=== PATIENT | male | born 1965 | race Caucasian/White ===

== ENCOUNTER 2021-06-27 10:40 | Inpatient (IN) | payer MEDICARE, SELFPAY ==
[2021-06-27] VITALS (39 sets, daily range): BP systolic 88–147; BP diastolic 61–94; PULSE 83–120; RESP 14–35; TEMP 35.9–38.5; O2SAT 84–969; BMI 29.2; BMI 28.8
--- NOTE | 2021-06-27 10:46 | CT_ITS ---
STUDY: CT BRAIN WITHOUT CONTRAST REASON FOR EXAM: Male, 56 years old. Unresponsive RADIATION DOSAGE (If Supplied By Facility): CTDIvol = ( 44.99 ) mGy, DLP = ( 863.60 ) mGycm TECHNIQUE: Transaxial CT imaging of the brain was performed without administration of intravenous contrast material. Individualized dose optimization techniques were used for this CT. COMPARISON: No relevant priors. FINDINGS: Normal soft tissue structures. Normal calvarium. Normal size ventricles and extra-axial spaces for the patient''s age. Normal white matter tracts of the cerebral hemispheres. Normal basal ganglia and thalami. Normal brainstem. Normal cerebellum. There is no intracranial hemorrhage. There are no findings of an acute ischemic infarction. Partial opacification of the ethmoid sinuses. CT/Brain/Head without Contrast IMPRESSION: Normal unenhanced CT scan of the brain. Electronically Signed: Kristopher Montano MD at 12:02 EST ,
--- NOTE | 2021-06-27 10:46 | RAD_ITS ---
STUDY: X-RAY CHEST REASON FOR EXAM: Male, 56 years old. Intubation TECHNIQUE: Single AP portable view of the chest. COMPARISON: None. FINDINGS: The tip of the nasogastric tube is in the body of the stomach. RAD/Chest 1 View (Portable) IMPRESSION: The tip of the nasogastric tube is in the body of the stomach. Electronically Signed: Kristopher Montano MD at 12:17 EST ,
--- NOTE | 2021-06-27 10:46 | EKG12_ITS ---
Test Reason : UNRESPONSIVE Blood Pressure : / mmHG Vent. Rate : 122 BPM Atrial Rate : 122 BPM P-R Int : 118 ms QRS Dur : 070 ms QT Int : 302 ms P-R-T Axes : 072 075 066 degrees QTc Int : 430 ms Sinus tachycardia with occasional and consecutive Premature ventricular complexes Low voltage QRS Abnormal ECG Confirmed by CHERRI WOOD, SETH ([id number]), features editor OMAR STEINBERG ([id number]) on 06/30/2021 10:52:10 AM Referred By: ZAIRA Confirmed By:SETH HARLEY MD
--- NOTE | 2021-06-27 10:52 | EDS_ITS ---
HPI History of Present Illness Chief Complaint: Unresponsive Informant: EMS Narrative Narrative: Patient came in as soledad Shay with first name known as Beck. Brought EMS from home, EMS was called for unresponsive male. Reported history of lung cancer emphysema COPD on chronic 4 L of oxygen. History of sleep apnea. Reported spouse stated he thought he was just sleeping however is not responding sitting on the couch. He supposed to wear a CPAP overnight but he did not. He was normal yesterday. They attempted intubate unable to therefore [id number]. Oxygen was 80% on 4 L. With [id number] he was 99%. Report blood glucose in the 200s. Had a left IO placed. Reported end-tidal CO2 was 140. No additional information at this time. Spouse came later after intubation and initiation and management states and confirms he was normal and fine yesterday no recent cough. Multiple similar episodes last time of the end of the year last year for same have been hypercapnic respiratory failure. 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 She states he has been compliant with his sleep mask however does not feel he did have it on yesterday. Prior similar symptoms: Yes [facility] Medical History COPD (chronic obstructive pulmonary disease) Emphysema lung Lung cancer Home Medications furosemide 60 mg PO BID 06/27/21 [History Last Taken Unknown] gabapentin 300 mg PO QHS 06/27/21 [History Last Taken Unknown] hydromorphone 2 mg PO Q8 PRN 06/27/21 [History Last Taken Unknown] ipratropium-albuterol 3 ml INHALATION Q4H PRN PRN 06/27/21 [History Last Taken Unknown] levothyroxine 175 mcg PO DAILY 06/27/21 [History Last Taken Unknown] methadone 10 mg PO BID 06/27/21 [History Last Taken Unknown] methylphenidate HCl 5 mg PO BID 06/27/21 [History Last Taken Unknown] metoprolol succinate 25 mg PO DAILY 06/27/21 [History Last Taken Unknown] prednisone 06/27/21 [History Last Taken Unknown] Allergy/AdvReac Type Severity Reaction Status Date / Time No Known Allergies Allergy Verified 06/27/21 10:46 Family History unable to obtain Surgical History unable to obtain Social History Smoking Status: Current every day smoker tobacco type: cigarettes and smokeless tobacco ROS ROS ED Review of Systems ROS Unobtainable: due to mental condition and due to mental status EXAM Physical Exam Const Vital Signs: 06/27/21 10:41 06/27/21 10:44 06/27/21 10:47 Temperature 96.6 F L 96.8 F L Temperature Source Temporal Temporal Pulse Rate 108 H 116 H Respiratory Rate 35 H 22 H Respiratory Effort Agonal Respiratory Depth Shallow Respiratory Pattern Blood Pressure 147/90 H 112/76 Blood Pressure Mean 109 88 Pulse Ox 84 99 Oxygen Delivery Method Ambu-Bag Mechanical Ventilator Fraction of Inspired Oxygen (FIO2) 06/27/21 11:06 06/27/21 11:40 06/27/21 11:44 Temperature 96.8 F L 97.3 F L 97.4 F L Temperature Source Temporal Core Core Pulse Rate 110 H 101 H Respiratory Rate 18 18 Respiratory Effort Respiratory Depth Respiratory Pattern Blood Pressure 97/74 93/78 Blood Pressure Mean 81 83 Pulse Ox 100 100 98 Oxygen Delivery Method Mechanical Ventilator Mechanical Ventilator Mechanical Ventilator Fraction of Inspired Oxygen (FIO2) 45 06/27/21 11:47 06/27/21 12:00 06/27/21 12:03 Temperature 97.4 F L Temperature Source Core Pulse Rate 109 H 107 H 102 H Respiratory Rate 15 18 20 H Respiratory Effort Respiratory Depth Respiratory Pattern Tachypnea Blood Pressure 88/64 L Blood Pressure Mean 72 Pulse Ox 99 100 Oxygen Delivery Method Mechanical Ventilator Fraction of Inspired Oxygen (FIO2) 60 06/27/21 12:06 06/27/21 12:15 06/27/21 13:00 Temperature 97.7 F L Temperature Source Core Pulse Rate 102 H 107 H 97 Respiratory Rate 18 18 Respiratory Effort Respiratory Depth Respiratory Pattern Blood Pressure 99/61 99/70 Blood Pressure Mean 73 79 Pulse Ox 96 969 Oxygen Delivery Method Mechanical Ventilator Fraction of Inspired Oxygen (FIO2) 45 Constitutional Narrative: Obese male, [id number] unresponsive not moving any of his extremities. GCS 3. HEENT Reports moist mucous membranes Negative for trauma Eyes Eyes Narrative: Pupils dilated symmetric bilaterally. Resp Resp Narrative: Equal breath sounds with [id number]. Cardio regular rhythm Rate: tachycardic GI Inspection: abdominal distention Palpation: soft Extremity Extremity Narrative: Left tibial IO. Pulses intact x4. Neuro Neuro Narrative: Unresponsive Skin no rashes or lesions noted MDM MDM MDM Narrative Medical decision making narrative: Patient unresponsive GCS is 3. Patient was intubated on arrival initial trial of Glidoscope however with patient size, anterior cords, this was switched to direct visualization placed with no complications. Procedure note: Emergent intubation: No sedation required, #4 glidoscope blade used direct realization cords anterior attempted with stylette, unable to guide anteriorly. Attempted x2 suctioning performed, there is no hypoxia. Continued [id number]. This was switched over to direct realization with #4 MAC blade visualized directly placed 7.5 [place] tube 23 cm at the lips. Positive capnography positive breath sounds bilaterally positive condensation. Tube was cleared by respiratory therapy. Sepsis work-up initiated to unresponsive, obtain a CT head. History patient not using his CPAP unresponsive with end-tidal CO2 of 140 by EMS likely hypercapnic respiratory failure. There is initial report from a CBC hemoglobin 4.4 however clinically he was not pale. Recheck CBC hemoglobin 11.4. Blood gas pH 7.182, PCO2 116 PaO2 151 at 60% oxygenation. His tidal volume increased to 450, ventilation rate from 14- 18. Oxygenation decreased down to 45%. He was initially started propofol drip however he became hypotensive improved when this was turned he was transitioned over to a fentanyl drip. There is increasing difficulty with the rest of patient's blood work with multiple tries by nursing laboratory studies. Some are still pending. Per spouse there has been issues in the past for which she has had a PICC line. Currently Wednesday with patient being ICU on a ventilator this would be more urgent emergent to have access as he has only an IV at this time. The PICC team was contacted by nursing for planned PICC line placement. Will speak with hos pital team for admission to ICU. Sustainable [employer] Consultant Dr. Dial was also aware and updated. CT brain returned negative chest x-ray negative for infiltrative changes. Tubes were in correct position. I discussed with hospitalist Dr. Ramirez, for admission to ICU. He requested reimaging of the x-ray due to the loaded imaging noting cut off the apex. However my bedside evaluation had multiple images reviewed that had the apex in there, I discussed with radiology department who will try to find images to load this otherwise stable we retake the appropriate image.. Lab Data Attestation: I reviewed the patient's lab results. Labs: Laboratory Results - last 24 hr 06/27/21 06/27/21 06/27/21 10:45 10:45 10:45 WBC Cancelled Corrected WBC Cancelled RBC Cancelled Hgb Cancelled Hct Cancelled MCV Cancelled MCH Cancelled MCHC Cancelled RDW Std Deviation Cancelled RDW Coeff of Imelda Cancelled Plt Count Cancelled MPV Cancelled Immature Gran % (Auto) Cancelled Neut % (Auto) Cancelled Lymph % (Auto) Cancelled [place] % (Auto) Cancelled Eos % (Auto) Cancelled Baso % (Auto) Cancelled Absolute Neuts (auto) Cancelled Absolute Lymphs (auto) Cancelled Total Counted Cancelled Neutrophils % (Manual) Cancelled Band Neutrophils % Cancelled Lymphocytes % (Manual) Cancelled Monocytes % (Manual) Cancelled Eosinophils % (Manual) Cancelled Basophils % (Manual) Cancelled Metamyelocytes % Cancelled Myelocytes % Cancelled Promyelocytes % Cancelled Blast Cells % Cancelled Plasma Cell % (Manual) Cancelled Other Cells % Cancelled Nucleated RBC % Cancelled Nucleated RBCs/100 WBC Cancelled Differential Comment Cancelled Diff Path Review Cancelled Hypersegmented Neuts Cancelled Atypical Lymphocytes Cancelled Reactive Lymphocytes Cancelled Smudge Cells Cancelled Toxic Granulation Cancelled Toxic Vacuolation Cancelled Dohle Bodies Cancelled Rylee Rods Cancelled Platelet Estimate Cancelled Plt Morphology Comment Cancelled RBC Morphology Cancelled Polychromasia Cancelled Hypochromasia Cancelled Poikilocytosis Cancelled Basophilic Stippling Cancelled Anisocytosis Cancelled Microcytosis Cancelled Macrocytosis Cancelled Spherocytes Cancelled Sickle Cells Cancelled Target Cells Cancelled Tear Drop Cells Cancelled Ovalocytes Cancelled Stomatocytes Cancelled [place] Bodies Cancelled [place] Cells Cancelled Bite Cells Cancelled Crenated Cell Cancelled Acanthocytes (Spur) Cancelled Rouleaux Cancelled Schistocytes Cancelled PT Cancelled INR Cancelled APTT Cancelled Sodium Cancelled Potassium Cancelled Chloride Cancelled Carbon Dioxide Cancelled Anion Gap Cancelled BUN Cancelled Creatinine Cancelled Estim Creat Clear Calc Cancelled Est GFR (MDRD) Af Amer Cancelled Est GFR (MDRD) Non-Af Cancelled BUN/Creatinine Ratio Cancelled Glucose Cancelled Lactic Acid Calcium Cancelled Total Bilirubin Cancelled AST Cancelled ALT Cancelled Alkaline Phosphatase Cancelled Troponin I High Sens Cancelled Total Protein Cancelled Albumin Cancelled Globulin Cancelled Albumin/Globulin Ratio Cancelled Urine Color Urine Clarity Urine pH Ur Specific [place] Urine Protein Urine Glucose (UA) Urine Ketones Urine Occult Blood Urine Nitrite Urine Bilirubin Urine Urobilinogen Ur Leukocyte Esterase Urine RBC Urine WBC Ur Squamous Epith Cells Urine Bacteria Urine Mucus 06/27/21 06/27/21 06/27/21 10:45 11:04 12:10 WBC 13.1 H Corrected WBC RBC 3.88 L Hgb 11.6 L Hct 39.7 L MCV 102.3 H MCH 29.9 MCHC 29.2 L RDW Std Deviation 56.8 H RDW Coeff of Imelda 15.1 H Plt Count 200 MPV 11.2 Immature Gran % (Auto) 3.400 H Neut % (Auto) 81.6 H Lymph % (Auto) 3.4 L [place] % (Auto) 11.0 H Eos % (Auto) 0.1 Baso % (Auto) 0.5 Absolute Neuts (auto) 10.7 H Absolute Lymphs (auto) 0.45 L Total Counted Neutrophils % (Manual) Band Neutrophils % Lymphocytes % (Manual) Monocytes % (Manual) Eosinophils % (Manual) Basophils % (Manual) Metamyelocytes % Myelocytes % Promyelocytes % Blast Cells % Plasma Cell % (Manual) Other Cells % Nucleated RBC % 0.5 Nucleated RBCs/100 WBC Differential Comment COMMENT Diff Path Review Hypersegmented Neuts Atypical Lymphocytes Reactive Lymphocytes Smudge Cells Toxic Granulation Toxic Vacuolation Dohle Bodies Rylee Rods Platelet Estimate Plt Morphology Comment RBC Morphology Polychromasia Hypochromasia Poikilocytosis Basophilic Stippling Anisocytosis Microcytosis Macrocytosis Spherocytes Sickle Cells Target Cells Tear Drop Cells Ovalocytes Stomatocytes [place] Bodies [place] Cells Bite Cells Crenated Cell Acanthocytes (Spur) Rouleaux Schistocytes PT INR APTT Sodium Potassium Chloride Carbon Dioxide Anion Gap BUN Creatinine Estim Creat Clear Calc Est GFR (MDRD) Af Amer Est GFR (MDRD) Non-Af BUN/Creatinine Ratio Glucose Lactic Acid Cancelled Calcium Total Bilirubin AST ALT Alkaline Phosphatase Troponin I High Sens Total Protein Albumin Globulin Albumin/Globulin Ratio Urine Color Yellow Urine Clarity Clear Urine pH 6.5 Ur Specific [place] 1.015 Urine Protein 30 H Urine Glucose (UA) Normal Urine Ketones Negative Urine Occult Blood Negative Urine Nitrite Negative Urine Bilirubin Negative Urine Urobilinogen Normal Ur Leukocyte Esterase Negative Urine RBC 0 SEEN Urine WBC 0 SEEN Ur Squamous Epith Cells 0 SEEN Urine Bacteria 0 SEEN Urine Mucus 0 SEEN 06/27/21 12:10 WBC Corrected WBC RBC Hgb Hct MCV MCH MCHC RDW Std Deviation RDW Coeff of Imelda Plt Count MPV Immature Gran % (Auto) Neut % (Auto) Lymph % (Auto) [place] % (Auto) Eos % (Auto) Baso % (Auto) Absolute Neuts (auto) Absolute Lymphs (auto) Total Counted Neutrophils % (Manual) Band Neutrophils % Lymphocytes % (Manual) Monocytes % (Manual) Eosinophils % (Manual) Basophils % (Manual) Metamyelocytes % Myelocytes % Promyelocytes % Blast Cells % Plasma Cell % (Manual) Other Cells % Nucleated RBC % Nucleated RBCs/100 WBC Differential Comment Diff Path Review Hypersegmented Neuts Atypical Lymphocytes Reactive Lymphocytes Smudge Cells Toxic Granulation Toxic Vacuolation Dohle Bodies Rylee Rods Platelet Estimate Plt Morphology Comment RBC Morphology Polychromasia Hypochromasia Poikilocytosis Basophilic Stippling Anisocytosis Microcytosis Macrocytosis Spherocytes Sickle Cells Target Cells Tear Drop Cells Ovalocytes Stomatocytes [place] Bodies [place] Cells Bite Cells Crenated Cell Acanthocytes (Spur) Rouleaux Schistocytes PT INR APTT Sodium 140 Potassium 4.5 Chloride 94 L Carbon Dioxide 42.0 H Anion Gap 4 L BUN 22 H Creatinine 1.58 H Estim Creat Clear Calc 55.94 Est GFR (MDRD) Af Amer 58 L Est GFR (MDRD) Non-Af 48 L BUN/Creatinine Ratio 13.9 Glucose 160 H Lactic Acid Calcium 8.2 L Total Bilirubin 0.10 L AST 33 ALT 35 Alkaline Phosphatase 108 Troponin I High Sens Total Protein 6.0 L Albumin 3.1 L Globulin 2.9 Albumin/Globulin Ratio 1.1 Urine Color Urine Clarity Urine pH Ur Specific [place] Urine Protein Urine Glucose (UA) Urine Ketones Urine Occult Blood Urine Nitrite Urine Bilirubin Urine Urobilinogen Ur Leukocyte Esterase Urine RBC Urine WBC Ur Squamous Epith Cells Urine Bacteria Urine Mucus ABG Data ABG results: ABG 06/27/21 11:15 Specimen Type ART Sample Site L Radial pH 7.18 L* Bicarbonate Actual 43.7 H Total CO2 47 Base Excess 15 H O2 Saturation 98 O2 % 45 ABG pCO2 116.7 H* ABG pO2 152 H Respiration Rate 14 O2 Delivery Device Adult Vent Vent Mode AC Tidal Volume 400 POC PEEP 5 Crit Call To/Read Back Yes Radiography Chest X-Ray - ED: 1 View, Read by ED Physician and Read by Radiologist Diagnostic Testing: Clinical Impression(s) from Imaging Studies Brain CT 06/27/21 10:46 IMPRESSION: Normal unenhanced CT scan of the brain. Electronically Signed: Kristopher Montano MD at 12:02 EST , Chest X-Ray 06/27/21 10:46 IMPRESSION: The tip of the nasogastric tube is in the body of the stomach. Electronically Signed: Kristopher Montano MD at 12:17 EST , ADDENDUM: 06/27/21 1325 EKG Initial EKG: Attestation: I personally reviewed and interpreted this EKG as follows: Comments: Sinus tachycardia 122, no ST or T wave changes. Critical Care Time Critical Care Time: Yes Critical care time (excluding procedures): 30-74 minutes, Discussing w/Patient &/or Family/Sanitary Engineer, Discussing w/Consultants, Arranging Admission or Transfer, Performing Direct Patient Care at Bedside and - Discharge Plan Dx/Rx/DC Orders Clinical Impression: Acute hypercapnic respiratory failure, History of COPD Disposition Disposition: Acute Care Hospital [facility] Discharge Date/Time: 06/27/21 13:57
[2021-06-27] MEDS: Propofol 10MG/Ml 1,000 MG/100 ML Bottle 5.9 MG CONT INF (11:00)
[2021-06-27] MEDS: 0.9% Normal Saline 1,000 ML 150 ML IV (11:01)
[2021-06-27 11:09] LABS: Bacteria 0 SEEN /hpf (None Seen); Mucous, Urine 0 SEEN /hpf (<or=2+); Red Blood Cells-Urine 0 SEEN /hpf (0-5); Squamous Epithelial Cells - UA 0 SEEN /hpf (0-5); White Blood Cells 0 SEEN /hpf (0-5)
[2021-06-27 11:11] LABS: Color, Urine Yellow (Yellow); Glucose, Dipstick Normal (Normal); Ketone-Dipstick Negative (Negative); Leukocyte Esterase-Dipstick Negative /ul (Negative); Nitrite-Dipstick Negative (Negative); Occult Blood-Urine Negative /ul (Negative); Protein-Dipstick 30 mg/dl (Negative); Specific Gravity, Urine 1.015 (1.002-1.030); Urine Bilirubin Dipstick Negative (Negative); Urine Clarity Clear (Clear); Urine Urobilinogen Normal (Normal); Urine pH 6.5 (5.0 - 8.0)
[2021-06-27 11:21] LABS: Base Excess 15 mmol/L (-2 to +2); Bicarbonate 43.7 mmol/L (22-26); Blood Gas Specimen Type ART; FI02 45; Mode AC; O2 Delivery Device Adult Vent; PEEP 5; PO2 152 mmHG (75-100); RR 14; SITE L Radial; SO2 98 % (95-99); Total Carbon Dioxide 47 mmol/L; Vt 400; pCO2 116.7 mmHg (35-45); pH 7.18 (7.35-7.45)
--- NOTE | 2021-06-27 11:50 | CPS ---
Increased RR to 18 and VT to 450 per
[2021-06-27] MEDS: MethylPREDNISolone 125 MG/2 ML Vial IV (12:00)
[2021-06-27] MEDS: Ipratropium/Albuterol Sulfate 3 ML AMPUL.NEB INHALATION ×4 (12:03→22:44)
[2021-06-27] MEDS: Albuterol 2.5 MG/3 ML VIAL.NEB. INHALATION ×2 (12:03→12:04)
[2021-06-27 12:21] LABS: Absolute Lymphocyte Count 0.45 X10^3/uL (0.83-4.51); Absolute Neutrophil Count 10.7 X10^3/uL (2.0-7.7); Basophil# 0.06 X10^3/uL; Basophil% 0.5 % (0-1); Eosinophil# 0.01 X10^3/uL; Eosinophils% 0.1 % (0-5); Hematocrit 39.7 % (40-54); Hemoglobin 11.6 g/dL (13.0-16.5); Lymphocyte # 0.45 X10^3/ul (0.83-4.51); Lymphocyte % 3.4 % (19-41); Mean Corp Hgb Conc 29.2 g/dL (32-36); Mean Corpuscular Hgb 29.9 pg (27.0-32.0); Mean Corpuscular Volume 102.3 fL (80-94); Mean Platelet Vol. 11.2 fl (6.2-12.0); Monocyte# 1.44 X10^3/uL; NRBC Flagged by Analyzer 0.5 % (0-5); Neutrophil # 10.72 X10^3/uL (2.7-7.7); Neutrophil % 81.6 % (47-70); POSITIVE DIFFERENTIAL YES; Platelet Count 200 K/mm3 (150-450); RBC Distribution Width CV 15.1 % (11.6-14.6); RBC Distribution Width SD 56.8 fl (35.1-43.9); Red Blood Count 3.88 M/mm3 (4.6-6.2); White Blood Count 13.1 K/mm3 (4.4-11.0)
[2021-06-27 12:22] LABS: Differential Indicated SCAN CRITERIA MET
--- NOTE | 2021-06-27 12:47 | ED.RN ---
PICC line team called for picc insertion. pt will have emergency picc placed.
--- NOTE | 2021-06-27 13:03 | ED.RN ---
MD AWARE OF SEPSIS ALERT, FEEL CURRENT STATUS IS NOT RELATED TO AN INFECTIOUS PROCESS
[2021-06-27 13:07] LABS: ALB/GLOB Ratio 1.1 RATIO (0.9-2.4); AST(SGOT) 33 U/L (15-37); Alanine Aminotransfer ALT/SGPT 35 U/L (16-61); Albumin, Serum 3.1 g/dL (3.2-5.0); Alkaline Phosphatase 108 U/L (45-117); Anion Gap 4 (5-15); BUN 22 mg/dL (7-18); BUN/Creat Ratio 13.9 RATIO (10-20); Calcium,Total 8.2 mg/dL (8.5-10.1); Chloride 94 mmol/L (98-107); Creatinine, Serum 1.58 mg/dL (0.70-1.30); EST Glomerular Filtration Rate 48 mL/min (>60); Est Glom Filt Rate - Afr Amer 58 mL/min (>60); Estimated Creatinine Clearance 55.94 ml/min; Globulin 2.9 g/dL (2.2-4.2); Glucose 160 mg/dL (74-106); Potassium 4.5 mmol/L (3.5-5.1); Sodium Level 140 mmol/L (136-145)
--- NOTE | 2021-06-27 13:18 | HP.PCM.HOS_ITS ---
HPI - General General Date of Admission: 06/27/21 Date of Service: 06/27/21 Chief Complaint: unresponsive HPI Narrative SUMEET ELLIOTT, is a 56 M who presents being found unresponsive. Patient was sent to emergency room and intubated. Blood gas showed respiratory acidosis with PCO2 of 116. Patient has a history of lung cancer and advanced COPD. Patient has a trilogy machine at home but has not been using it frequently and was not on it last night. According to his , is present at bedside, he was awake alert. He has had spells like this before and has been intubated numerous occasions. He does take narcotics for pain associated with his cancer but she denies any suicide attempt or ideation for the patient. [facility] Medical History COPD (chronic obstructive pulmonary disease) Emphysema lung Lung cancer Home Medications furosemide 60 mg PO BID 06/27/21 [History Last Taken Unknown] gabapentin 300 mg PO QHS 06/27/21 [History Last Taken Unknown] hydromorphone 2 mg PO Q8 PRN 06/27/21 [History Last Taken Unknown] ipratropium-albuterol 3 ml INHALATION Q4H PRN PRN 06/27/21 [History Last Taken Unknown] levothyroxine 175 mcg PO DAILY 06/27/21 [History Last Taken Unknown] methadone 10 mg PO BID 06/27/21 [History Last Taken Unknown] methylphenidate HCl 5 mg PO BID 06/27/21 [History Last Taken Unknown] metoprolol succinate 25 mg PO DAILY 06/27/21 [History Last Taken Unknown] prednisone 06/27/21 [History Last Taken Unknown] Allergy/AdvReac Type Severity Reaction Status Date / Time No Known Allergies Allergy Verified 06/27/21 10:46 unable to obtain (Intubated) unable to obtain (Patient intubated) Social History Smoking Status: Current every day smoker tobacco type: cigarettes ROS Review of Systems ROS Unobtainable: due to endotracheal tube Vital Signs Vital Signs Vital Signs: 06/27/21 10:41 06/27/21 10:44 06/27/21 10:47 Temperature 35.9 C L 36.0 C L Temperature Source Temporal Temporal Pulse Rate 108 H 116 H Respiratory Rate 35 H 22 H Respiratory Effort Agonal Respiratory Depth Shallow Blood Pressure 147/90 H 112/76 Blood Pressure Mean 109 88 Pulse Ox 84 99 Oxygen Delivery Method Ambu-Bag Mechanical Ventilator Fraction of Inspired Oxygen (FIO2) 06/27/21 11:06 06/27/21 11:40 06/27/21 11:44 Temperature 36.0 C L 36.3 C L 36.3 C L Temperature Source Temporal Core Core Pulse Rate 110 H 101 H Respiratory Rate 18 18 Respiratory Effort Respiratory Depth Blood Pressure 97/74 93/78 Blood Pressure Mean 81 83 Pulse Ox 100 100 98 Oxygen Delivery Method Mechanical Ventilator Mechanical Ventilator Mechanical Ventilator Fraction of Inspired Oxygen (FIO2) 45 06/27/21 11:47 06/27/21 12:00 06/27/21 12:15 Temperature 36.3 C L Temperature Source Core Pulse Rate 109 H 107 H 107 H Respiratory Rate 15 18 Respiratory Effort Respiratory Depth Blood Pressure 88/64 L 99/61 Blood Pressure Mean 72 73 Pulse Ox 99 Oxygen Delivery Method Mechanical Ventilator Fraction of Inspired Oxygen (FIO2) 06/27/21 13:00 Temperature 36.5 C L Temperature Source Core Pulse Rate 97 Respiratory Rate 18 Respiratory Effort Respiratory Depth Blood Pressure 99/70 Blood Pressure Mean 79 Pulse Ox 969 Oxygen Delivery Method Mechanical Ventilator Fraction of Inspired Oxygen (FIO2) Weight Weight: 97.9 kg Body Mass Index (BMI) 29.2 Physical Exam Const Constitutional Narrative: Intubated and sedated. HEENT normocephalic Neck no lymphadenopathy Resp normal respiratory effort, no retractions, no use of accessory muscles and clear to auscultation bilaterally Cardio regular rate, regular rhythm, S1 normal heart sound and S2 normal heart sound GI normal to inspection, nondistended, normoactive bowel sounds, soft to palpation, non-tender and non-distended Extremity normal to inspection Skin no rashes or lesions noted Neuro Sensorium / Orientation: awake and alert Results Lab / Micro Data Attestation: I reviewed the patient's lab results. Result Diagrams: 06/27/21 12:10 06/27/21 12:10 Labs: Laboratory Results - last 24 hr 06/27/21 10:45: WBC Cancelled, Corrected WBC Cancelled, RBC Cancelled, Hgb Cancelled, Hct Cancelled, MCV Cancelled, MCH Cancelled, MCHC Cancelled, RDW Std Deviation Cancelled, RDW Coeff of Imelda Cancelled, Plt Count Cancelled, MPV Cancelled, Immature Gran % (Auto) Cancelled, Neut % (Auto) Cancelled, Lymph % (Auto) Cancelled, [place] % (Auto) Cancelled, Eos % (Auto) Cancelled, Baso % (Auto) Cancelled, Absolute Neuts (auto) Cancelled, Absolute Lymphs (auto) Cancelled, Total Counted Cancelled, Neutrophils % (Manual) Cancelled, Band Neutrophils % Cancelled, Lymphocytes % (Manual) Cancelled, Monocytes % (Manual) Cancelled, Eosinophils % (Manual) Cancelled, Basophils % (Manual) Cancelled, Metamyelocytes % Cancelled, Myelocytes % Cancelled, Promyelocytes % Cancelled, Blast Cells % Cancelled, Plasma Cell % (Manual) Cancelled, Other Cells % Cancelled, Nucleated RBC % Cancelled, Nucleated RBCs/100 WBC Cancelled, Differential Comment Cancelled, Diff Path Review Cancelled, Hypersegmented Neuts Cancelled, Atypical Lymphocytes Cancelled, Reactive Lymphocytes Cancelled, Smudge Cells Cancelled, Toxic Granulation Cancelled, Toxic Vacuolation Cancelled, Dohle Bodies Can celled, Rylee Rods Cancelled, Platelet Estimate Cancelled, Plt Morphology Comment Cancelled, RBC Morphology Cancelled, Polychromasia Cancelled, Hypochromasia Cancelled, Poikilocytosis Cancelled, Basophilic Stippling Cancelled, Anisocytosis Cancelled, Microcytosis Cancelled, Macrocytosis Cancelled, Sp herocytes Cancelled, Sickle Cells Cancelled, Target Cells Cancelled, Tear Drop Cells Cancelled, Ovalocytes Cancelled, Stomatocytes Cancelled, Reyes-[place] Bodies Cancelled, [place] Cells Cancelled, Bite Cells Cancelled, Crenated Cell Cancelled, Acanthocytes (Spur) Cancelled, Rouleaux Cancelled, Schistocytes Cancelled 06/27/21 10:45: PT Cancelled, INR Cancelled, APTT Cancelled 06/27/21 10:45: Sodium Cancelled, Potassium Cancelled, Chloride Cancelled, Car bon Dioxide Cancelled, Anion Gap Cancelled, BUN Cancelled, Creatinine Cancelled, Estim Creat Clear Calc Cancelled, Est GFR (MDRD) Af Amer Cancelled, Est GFR (MDRD) Non-Af Cancelled, BUN/Creatinine Ratio Cancelled, Glucose Cancelled, Calcium Cancelled, Total Bilirubin Cancelled, AST Cancelled, ALT Cancelled, Alkaline Phosphatase Cancelled, Troponin I High Sens Cancelled, Total Protein Cancelled, Albumin Cancelled, Globulin Cancelled, Albumin/Globulin Ratio Cancelled 06/27/21 10:45: Lactic Acid Cancelled 06/27/21 11:04: Urine Color Yellow, Urine Clarity Clear, Urine pH 6.5, Ur Specific [place] 1.015, Urine Protein 30 H, Urine Glucose (UA) Normal, Urine Ketones Negative, Urine Occult Blood Negative, Urine Nitrite Negative, Urine Bilirubin Negative, Urine Urobilinogen Normal, Ur Leukocyte Esterase Negative, Urine RBC 0 SEEN, Urine WBC 0 SEEN, Ur Squamous Epith Cells 0 SEEN, Urine Bacteria 0 SEEN, Urine Mucus 0 SEEN 06/27/21 12:10: WBC 13.1 H, RBC 3.88 L, Hgb 11.6 L, Hct 39.7 L, MCV 102.3 H, MCH 29.9, MCHC 29.2 L, RDW Std Deviation 56.8 H, RDW Coeff of Imelda 15.1 H, Plt Count 200, MPV 11.2, Immature Gran % (Auto) 3.400 H, Neut % (Auto) 81.6 H, Lymph % (Au to) 3.4 L, [place] % (Auto) 11.0 H, Eos % (Auto) 0.1, Baso % (Auto) 0.5, Absolute Neuts (auto) 10.7 H, Absolute Lymphs (auto) 0.45 L, Nucleated RBC % 0.5, Differential Comment COMMENT 06/27/21 12:10: Sodium 140, Potassium 4.5, Chloride 94 L, Carbon Dioxide 42.0 H, Anion Gap 4 L, BUN 22 H, Creatinine 1.58 H, Estim Creat Clear Calc 55.94, Est GFR (MDRD) Af Amer 58 L, Est GFR (MDRD) Non-Af 48 L, BUN/Creatinine Ratio 13.9, Glucose 160 H, Calcium 8.2 L, Total Bilirubin 0.10 L, AST 33, ALT 35, Alkaline Phosphatase 108, Total Protein 6.0 L, Albumin 3.1 L, Globulin 2.9, Albumin/Globulin Ratio 1.1 Micro: Microbiology 06/27/21 11:05 Nasal Secretion SARS-CoV-2 Antigen (Rapid) - Final ABG Data ABG results: ABG 06/27/21 11:15 Specimen Type ART Sample Site L Radial pH 7.18 L* Bicarbonate Actual 43.7 H Total CO2 47 Base Excess 15 H O2 Saturation 98 O2 % 45 ABG pCO2 116.7 H* ABG pO2 152 H Respiration Rate 14 O2 Delivery Device Adult Vent Vent Mode AC Tidal Volume 400 POC PEEP 5 Crit Call To/Read Back Yes Radiology Impression Brain CT 06/27/21 10:46 IMPRESSION: Normal unenhanced CT scan of the brain. Electronically Signed: Kristopher Montano MD at 12:02 EST , Chest X-Ray 06/27/21 10:46 IMPRESSION: The tip of the nasogastric tube is in the body of the stomach. Electronically Signed: Kristopher Montano MD at 12:17 EST , Assessment & Plan Assessment/Plan (1) Acute hypercapnic respiratory failure: (2) Acute exacerbation of COPD with asthma: PLAN: 1. Acute on chronic hypercapnic respiratory failure Patient has been intubated roughly 4-5 times over the past year according to his Chest x-ray is unremarkable for any infiltrates and his COVID-19 was negative. Complicated by his narcotic use but denies any suicide attempt or ideation. Is likely exacerbation of his COPD Patient has been intubated in the emergency room Patient be transferred to ICU CCM consult Given his frequent hospitalizations and the fact that he is never been here before we will request records from [facility] where he normally is treated. 2. Acute COPD exacerbation Bronchodilators and methylprednisolone 3. VTE prophylaxis with enoxaparin 4. COVID-19 vaccination status: Patient is vaccinated for COVID-19 according to his spouse 5. Advance care planning. Dressed with his . She stated that he and she had spoken with palliative care, the patient established with, and he wished to be full code at that time. Therefore patient is full CODE STATUS. Charges/Coding Visit Charges Inpatient E&M: 08877 Init Hosp L3
--- NOTE | 2021-06-27 14:32 | CON.PCM.CC_ITS ---
Assessment & Plan Assessment/Plan (1) Acute hypercapnic respiratory failure: (2) Acute exacerbation of COPD with asthma: (3) Acute metabolic encephalopathy: (4) Chronic kidney disease (CKD) stage G3a/A1, moderately decreased glomerular filtration rate (GFR) between 45-59 mL/min/1.73 square meter and albuminuria creatinine ratio less than 30 mg/g: PLAN: RECOMMENDATIONS: 1. Continue mechanical ventilation 2. Sedation only if necessary for vent synchrony 3. Monitor neuro exam clinically 4. Await sputum culture. Start antibiotics with fever 5. Initiate Solu-Medrol and bronchodilators 6. Remove I/O once PICC line is placed IMPRESSIONS: 1. Acute on chronic combined respiratory failure with possible COPD exacerbation Patient reportedly with advanced lung disease at baseline. Labs are consistent with an element of CO2 retention. ABG shows adequate oxygenation ventilation at this time. Some concern for noncompliance with NIV leading to CO2 retention and obtundation. Agree with monitoring off of antibiotics for now. These can be initiated if significant secretions or fever noted. Initiate Solu-Medrol and bronchodilators. 2. Acute metabolic encephalopathy Patient's carbon oxide greater than 100 on presentation. However, patient was also found saturating 80%. Cannot exclude an element of anoxic encephalopathy. We will try to minimize sedation and monitor clinically. No seizure activity has been noted. Delirium protocol. 3. Chronic kidney disease stage III Patient's reported that he was of his usual health yesterday. Patient currently with a 10-1 BUN to creatinine ratio. Clinical suspicion is chronic kidney disease. We will continue to monitor renal function. No indication for renal replacement therapy at this time. Patient does have an element of chronic metabolic alkalosis to compensate for respiratory acidosis. No indication for renal replacement therapy at this time. Patient does not appear to be acutely fluid overloaded to require Lasix therapy 4. History of lung cancer/poor compliance with NIV/repeated admissions/chronic opioids/hypothyroidism Complicates care, management, recovery and prognosis. Patient is currently on a fentanyl drip, so methadone can be held. Chronic narcotics do increases risk of repeated respiratory failure. Patient is reportedly a full code TIME: 35 minutes critical care time spent addressing patient's acute on chronic combined respiratory failure, acute metabolic encephalopathy, CKD, review of all data and collaboration with care team HPI Consult Data Date of Consult: 06/27/21 HPI Narrative HPI Narrative: SUMEET ELLIOTT is a 56 M, with past medical history listed below, who presents to [facility] 06[facility]27/[facility]21 secondary to being unresponsiveness. EMS was reportedly called to the patient's home secondary to being found unresponsive. Patient does have a protracted/complex pulmonary history with lung cancer, emphysema and chronic hypoxic respiratory failure requiring 4 L/min. Patient also has a history of sleep apnea with poor compliance. Patient reportedly had fallen asleep on the couch and not used his CPAP overnight. Patient was reportedly of his usual health yesterday. EMS had reported a saturation of 80% on 4 L nasal cannula. Patient was given bag valve mask ventilation with good response. Patient had an IO placed and was noted to have an end-tidal CO2 of 140. Patient was transferred to the ER for further evaluation. On arrival to the ER, patient was unresponsive, normotensive and hypertensive. Patient was requiring bag mask ventilation, but was intubated shortly after arrival. Patient did have some hypotension associated with the use of propofol. EMS personnel reported an initial GCS of three. Laboratory work-up showed a white blood cell count of 13.1, hemoglobin of 11.6 and a platelet count of 200. UA was within normal limits. An ABG showed a pH of 7.1 8/117/1 52/98%. Chest x-ray showed no acute infiltrates and CT of the head was unremarkable. Patient was transferred to the intensive care unit for further evaluation. Since being in the intensive care unit, patient is not interactive. Patient is on a fentanyl drip with good vent synchrony. FiO2 was weaned to 35% with saturations going from 97 to 92%. ABG showed adequate oxygenation and ventilation on current settings. Patient reportedly has had multiple similar type of presentations. Patient reportedly has had issues with decreased responsiveness, especially when he does not use his NIV at home. Patient reportedly goes to [facility] for most of his admissions, so little information is known otherwise here. Patient reporte vera does continue to smoke tobacco and use smokeless tobacco, but this has not been personally confirmed. [facility] Medical History COPD (chronic obstructive pulmonary disease) Emphysema lung Lung cancer Home Medications furosemide 60 mg PO BID 06/27/21 [History Last Taken Unknown] gabapentin 300 mg PO QHS 06/27/21 [History Last Taken Unknown] hydromorphone 2 mg PO Q8 PRN 06/27/21 [History Last Taken Unknown] ipratropium-albuterol 3 ml INHALATION Q4H PRN PRN 06/27/21 [History Last Taken Unknown] levothyroxine 175 mcg PO DAILY 06/27/21 [History Last Taken Unknown] methadone 10 mg PO BID 06/27/21 [History Last Taken Unknown] methylphenidate HCl 5 mg PO BID 06/27/21 [History Last Taken Unknown] metoprolol succinate 25 mg PO DAILY 06/27/21 [History Last Taken Unknown] prednisone 06/27/21 [History Last Taken Unknown] Allergy/AdvReac Type Severity Reaction Status Date / Time No Known Allergies Allergy Verified 06/27/21 10:46 Family History unable to obtain Surgical History unable to obtain Social History Smoking Status: Current every day smoker tobacco type: cigarettes and smokeless tobacco ROS Review of Systems ROS Unobtainable: due to encephalopathy Physical Exam Const General Appearance: disheveled, appears older than stated age, intubated and patient mechanically ventilated Orientation / Consciousness: comatose Nutritional Appearance: obese HEENT normocephalic and head/scalp atraumatic Neck no lymphadenopathy Chest Chest: abnormal inspection of the chest increased A-P diameter and symmetrical chest wall rise; Negative for crepitus Resp no retractions and no use of accessory muscles Auscultation: diminished lung sounds Cardio regular rhythm, S1 normal heart sound, S2 normal heart sound, no murmurs, no rub and no gallops Rate: tachycardic GI normal to inspection, nondistended, normoactive bowel sounds, soft to palpation, non-tender and non-distended Extremity General Extremity: clubbing and edema bilateral (1+) lower extremity; Negative for cyanosis Skin no rashes or lesions noted Skin Narrative: Multiple skin tags Neuro Kimberly Coma Scale: document GCS findings None None None 3 Sensorium / Orientation: obtunded Lab / Micro Data Result Diagrams: 06/27/21 12:10 06/27/21 12:10 Labs: Laboratory Results - last 24 hr 06/27/21 10:45: WBC Cancelled, Corrected WBC Cancelled, RBC Cancelled, Hgb Cancelled, Hct Cancelled, MCV Cancelled, MCH Cancelled, MCHC Cancelled, RDW Std Deviation Cancelled, RDW Coeff of Imelda Cancelled, Plt Count Cancelled, MPV Cancelled, Immature Gran % (Auto) Cancelled, Neut % (Auto) Cancelled, Lymph % (Auto) Cancelled, [place] % (Auto) Cancelled, Eos % (Auto) Cancelled, Baso % (Auto) Cancelled, Absolute Neuts (auto) Cancelled, Absolute Lymphs (auto) Cancelled, Total Counted Cancelled, Neutrophils % (Manual) Cancelled, Band Neutrophils % Cancelled, Lymphocytes % (Manual) Cancelled, Monocytes % (Manual) Cancelled, Eosinophils % (Manual) Cancelled, Basophils % (Manual) Cancelled, Metamyelocytes % Cancelled, Myelocytes % Cancelled, Promyelocytes % Cancelled, Blast Cells % Cancelled, Plasma Cell % (Manual) Cancelled, Other Cells % Cancelled, Nucleated RBC % Cancelled, Nucleated RBCs/100 WBC Cancelled, Differential Comment Cancelled, Diff Path Review Cancelled, Hypersegmented Neuts Cancelled, Atypical Lymphocytes Cancelled, Reactive Lymphocytes Cancelled, Smudge Cells Cancelled, Toxic Granulation Cancelled, Toxic Vacuolation Cancelled, Dohle Bodies Cancelled, Rylee Rods Cancelled, Platelet Estimate Cancelled, Plt Morphology Comment Cancelled, RBC Morphology Cancelled, Polychromasia Cancelled, Hypochromasia Cancelled, Poikilocytosis Cancelled, Basophilic Stippling Cancelled, Anisocytosis Cancelled, Microcytosis Cancelled, Macrocytosis Cancelled, Spherocytes Cancelled, Sickle Cells Cancelled, Target Cells Cancelled, Tear Drop Cells Cancelled, Ovalocytes Cancelled, Stomatocytes Cance lled, Reyes-[place] Bodies Cancelled, [place] Cells Cancelled, Bite Cells Cancelled, Crenated Cell Cancelled, Acanthocytes (Spur) Cancelled, Rouleaux Cancelled, Schistocytes Cancelled 06/27/21 10:45: PT Cancelled, INR Cancelled, APTT Cancelled 06/27/21 10:45: Sodium Cancelled, Potassium Cancelled, Chloride Cancelled, Carbon Dioxide Cancelled, Anion Gap Cancelled, BUN Cancelled, Creatinine Cancelled, Estim Creat Clear Calc Cancelled, Est GFR (MDRD) Af Amer Cancelled, Est GFR (MDRD) Non-Af Cancelled, BUN/Creatinine Ratio Cancelled, Glucose Cancelled, Calcium Cancelled, Total Bilirubin Cancelled, AST Cancelled, ALT Cancelled, Alkaline Phosphatase Cancelled, Troponin I High Sens Cancelled, Total Protein Cancelled, Albumin Cancelled, Globulin Cancelled, Albumin/Globulin Ratio Cancelled 06/27/21 10:45: Lactic Acid Cancelled 06/27/21 11:04: Urine Color Yellow, Urine Clarity Clear, Urine pH 6.5, Ur Specific [place] 1.015, Urine Protein 30 H, Urine Glucose (UA) Normal, Urine Ketones Negative, Urine Occult Blood Negative, Urine Nitrite Negative, Urine Bilirubin Negative, Urine Urobilinogen Normal, Ur Leukocyte Esterase Negative, Urine RBC 0 SEEN, Urine WBC 0 SEEN, Ur Squamous Epith Cells 0 SEEN, Urine Bacteria 0 SEEN, Urine Mucus 0 SEEN 06/27/21 12:10: WBC 13.1 H, RBC 3.88 L, Hgb 11.6 L, Hct 39.7 L, MCV 102.3 H, MCH 29.9, MCHC 29.2 L, RDW Std Deviation 56.8 H, RDW Coeff of Imelda 15.1 H, Plt Count 200, MPV 11.2, Immature Gran % (Auto) 3.400 H, Neut % (Auto) 81.6 H, Lymph % (Auto) 3.4 L, [place] % (Auto) 11.0 H, Eos % (Auto) 0.1, Baso % (Auto) 0.5, Absolute Neuts (auto) 10.7 H, Absolute Lymphs (auto) 0.45 L, Nucleated RBC % 0.5, Differential Comment COMMENT 06/27/21 12:10: Sodium 140, Potassium 4.5, Chloride 94 L, Carbon Dioxide 42.0 H, Anion Gap 4 L, BUN 22 H, Creatinine 1.58 H, Estim Creat Clear Calc 55.94, Est GFR (MDRD) Af Amer 58 L, Est GFR (MDRD) Non-Af 48 L, BUN/Creatinine Ratio 13.9, Glucose 160 H, Calcium 8.2 L, Total Bilirubin 0.10 L, AST 33, ALT 35, Alkaline Phosphatase 108, Total Protein 6.0 L, Albumin 3.1 L, Globulin 2.9, Albumin/Globulin Ratio 1.1 Micro: Microbiology 06/27/21 11:05 Nasal Secretion SARS-CoV-2 Antigen (Rapid) - Final ABG Data ABG results: ABG 06/27/21 11:15 Specimen Type ART Sample Site L Radial pH 7.18 L* Bicarbonate Actual 43.7 H Total CO2 47 Base Excess 15 H O2 Saturation 98 O2 % 45 ABG pCO2 116.7 H* ABG pO2 152 H Respiration Rate 14 O2 Delivery Device Adult Vent Vent Mode AC Tidal Volume 400 POC PEEP 5 Crit Call To/Read Back Yes Radiology Impression Brain CT 06/27/21 10:46 IMPRESSION: Normal unenhanced CT scan of the brain. Electronically Signed: Kristopher Montano MD at 12:02 EST , Chest X-Ray 06/27/21 10:46 IMPRESSION: The tip of the nasogastric tube is in the body of the stomach. Electronically Signed: Kristopher Montano MD at 12:17 EST , ADDENDUM: 06/27/21 1325 Charges/Coding Procedures Hospitalists Procedures: 81283 Critial Care 1st Hr
[2021-06-27 14:42] LABS: Base Excess 12 mmol/L (-2 to +2); Bicarbonate 36.8 mmol/L (22-26); Blood Gas Specimen Type ART; FI02 45; Mode AC; O2 Delivery Device Adult Vent; PEEP 5; PO2 47 mmHG (75-100); RR 18; SITE L Radial; SO2 79 % (95-99); Total Carbon Dioxide 39 mmol/L; Vt 450; pCO2 63.9 mmHg (35-45); pH 7.37 (7.35-7.45)
[2021-06-27 15:47] LABS: International Normalized Ratio 0.9; Prothrombin Time (Protime)PT. 11.9 SECONDS (11.7-14.9)
[2021-06-27 15:48] LABS: Partial Thromboplast Time 30.5 Seconds (24.1-36.2)
[2021-06-27 15:58] LABS: Lactic Acid 1.2 mmol/L (0.4-1.9)
[2021-06-27 15:59] LABS: Troponin-I HS 36 pg/mL (3.0-78.0)
--- NOTE | 2021-06-27 16:51 | CPS ---
NOTIFIED OF CRITICAL VALUES BY [employer] JEREMIAH HOLLAND
--- NOTE | 2021-06-27 16:54 | CPS ---
[place] NOTIFIED OF CRITICAL VALUES BY MOTORMAN/WOMAN JEREMIAH HOLLAND
[2021-06-27 17:42] LABS: Troponin-I HS 30 pg/mL (3.0-78.0)
[2021-06-27] MEDS: Enoxaparin 40 MG/0.4 ML Syringe SC (17:48)
[2021-06-27] MEDS: Acetaminophen 650 MG/20 ML UDC NG ×2 (17:54→22:05)
[2021-06-27] MEDS: levoFLOXacin IV 750 MG/150 ML BAG 100 MG IV (17:59)
[2021-06-27 21:42] LABS: Troponin-I HS 33 pg/mL (3.0-78.0)
[2021-06-27] MEDS: Famotidine 20 MG Tablet 40 MG NG (22:04)
[2021-06-27] MEDS: Chlorhexidine 15 ML PO (22:05)
[2021-06-28] VITALS (28 sets, daily range): BP systolic 102–169; BP diastolic 70–125; PULSE 93–124; RESP 12–28; TEMP 36.1–38.3; O2SAT 88–99
[2021-06-28] MEDS: Ipratropium/Albuterol Sulfate 3 ML AMPUL.NEB INHALATION ×6 (02:48→22:43)
[2021-06-28 04:03] LABS: Absolute Lymphocyte Count 0.21 X10^3/uL (0.83-4.51); Absolute Neutrophil Count 11.7 X10^3/uL (2.0-7.7); Basophil# 0.01 X10^3/uL; Basophil% 0.1 % (0-1); Hematocrit 33.8 % (40-54); Hemoglobin 10.6 g/dL (13.0-16.5); Lymphocyte # 0.21 X10^3/ul (0.83-4.51); Lymphocyte % 1.7 % (19-41); Mean Corp Hgb Conc 31.4 g/dL (32-36); Mean Corpuscular Hgb 30.7 pg (27.0-32.0); Mean Platelet Vol. 10.9 fl (6.2-12.0); Monocyte# 0.23 X10^3/uL; Monocyte% 1.9 % (0-10); NRBC Flagged by Analyzer 0 % (0-5); Neutrophil # 11.65 X10^3/uL (2.7-7.7); Neutrophil % 95.2 % (47-70); POSITIVE DIFFERENTIAL YES; Platelet Count 187 K/mm3 (150-450); RBC Distribution Width SD 54.6 fl (35.1-43.9); Red Blood Count 3.45 M/mm3 (4.6-6.2); White Blood Count 12.2 K/mm3 (4.4-11.0)
[2021-06-28 04:04] LABS: Differential Indicated SCAN CRITERIA MET
[2021-06-28 04:27] LABS: Differential Comment SCANNED
[2021-06-28 04:28] LABS: Anion Gap 5 (5-15); BUN 30 mg/dL (7-18); BUN/Creat Ratio 22.4 RATIO (10-20); Calcium,Total 8.2 mg/dL (8.5-10.1); Chloride 95 mmol/L (98-107); Creatinine, Serum 1.34 mg/dL (0.70-1.30); EST Glomerular Filtration Rate 58 mL/min (>60); Est Glom Filt Rate - Afr Amer 70 mL/min (>60); Estimated Creatinine Clearance 65.95 ml/min; Glucose 186 mg/dL (74-106); Potassium 4.1 mmol/L (3.5-5.1); Sodium Level 137 mmol/L (136-145)
--- NOTE | 2021-06-28 06:15 | PCM.PN.INT ---
Assessment & Plan Assessment/Plan (1) Acute hypercapnic respiratory failure: (2) Acute exacerbation of COPD with asthma: (3) Acute metabolic encephalopathy: (4) Chronic kidney disease (CKD) stage G3a/A1, moderately decreased glomerular filtration rate (GFR) between 45-59 mL/min/1.73 square meter and albuminuria creatinine ratio less than 30 mg/g: PLAN: RECOMMENDATIONS: 1. Okay to extubate 2. Reinitiate baseline medications 3. Monitor neuro exam clinically 4. Continue antibiotics until culture negative at 48 hours 5. Continue bronchodilators. Potentially transition to prednisone to complete a 5-day burst 6. Remove I/O once PICC line is placed IMPRESSIONS: 1. Acute on chronic combined respiratory failure with possible COPD exacerbation Patient reportedly with advanced lung disease at baseline. Labs are consistent with an element of CO2 retention. ABG following spontaneous breathing trial shows adequate oxygenation and ventilation. Will attempt to keep saturations in the lower 90s. Patient did spike a fever. It is unclear if this is related to interventions or an early COPD exacerbation. We will continue antibiotics until culture negative. 2. Acute metabolic encephalopathy Resolved. Patient's carbon oxide greater than 100 on presentation. However, patient was also found saturating 80%. Cannot exclude an element of anoxic encephalopathy. We will try to minimize sedation and monitor clinically. No seizure activity has been noted. Delirium protocol. Await extubation and then question patient. Memory issues can result from minor hypoxic injury. 3. Chronic kidney disease stage III Patient's reported that he was of his usual health the day prior to presentation. Patient currently with a 10-1 BUN to creatinine ratio. Clinical suspicion is chronic kidney disease. We will continue to monitor renal function. No indication for renal replacement therapy at this time. Patient does have an element of chronic metabolic alkalosis to compensate for respiratory acidosis. No indication for renal replacement therapy at this time. Patient does not appear to be acutely fluid overloaded to require Lasix therapy 4. History of lung cancer/poor compliance with NIV/repeated admissions/chronic opioids/hypothyroidism Complicates care, management, recovery and prognosis. Okay to reinitiate methadone from my perspective now the fentanyl drip has been discontinued. Chronic narcotics do increases risk of repeated respiratory failure. Patient is reportedly a full code. TIME: 32 minutes critical care time spent addressing patient's acute on chronic combined respiratory failure, acute metabolic encephalopathy, CKD, review of all data and collaboration with care team Subjective Subjective Patient did okay overnight. Patient did spike a fever, so was started on antibiotics. Patient has received a couple doses of Tylenol overnight, but nursing report at approximately 7:00 last night patient started to act normal. Patient did well overnight was able to answer questions this morning. Patient tolerated 1 hour spontaneous breathing trial without issues. Patient did confirm that he was feeling of his usual health prior to falling asleep without NIV Objective Data Objective Data Vital Signs: Vital Signs Temp Pulse Resp BP Pulse Ox 37.3 C H 110 H 19 H 162/101 H 93 06/28/21 06:00 06/28/21 06:00 06/28/21 06:00 06/28/21 06:00 06/28/21 06:00 Oxygen Delivery Method Mechanical Ventilator Weight: 94 kg Body Mass Index (BMI) 28.8 Intake & Output: Intake and Output for Last 24 Hours 06/26/21 06/27/21 06/28/21 23:59 23:59 23:59 Intake Total 887.36 / 892.36 39.40 / 39.40 Output Total 250 / 525 475 / 475 Balance 637.36 / 367.36 -435.60 / -435.60 Lab / Micro Data Result Diagrams: 06/28/21 04:00 06/28/21 04:00 Labs: Laboratory Results - last 24 hr 06/27/21 10:45: WBC Cancelled, Corrected WBC Cancelled, RBC Cancelled, Hgb Cancelled, Hct Cancelled, MCV Cancelled, MCH Cancelled, MCHC Cancelled, RDW Std Deviation Cancelled, RDW Coeff of Imelda Cancelled, Plt Count Cancelled, MPV Cancelled, Immature Gran % (Auto) Cancelled, Neut % (Auto) Cancelled, Lymph % (Auto) Cancelled, Stephenson % (Auto) Cancelled, Eos % (Auto) Cancelled, Baso % (Auto) Cancelled, Absolute Neuts (auto) Cancelled, Absolute Lymphs (auto) Cancelled, Total Counted Cancelled, Neutrophils % (Manual) Cancelled, Band Neutrophils % Cancelled, Lymphocytes % (Manual) Cancelled, Monocytes % (Manual) Cancelled, Eosinophils % (Manual) Cancelled, Basophils % (Manual) Cancelled, Metamyelocytes % Cancelled, Myelocytes % Cancelled, Promyelocytes % Cancelled, Blast Cells % Cancelled, Plasma Cell % (Manual) Cancelled, Other Cells % Cancelled, Nucleated RBC % Cancelled, Nucleated RBCs/100 WBC Cancelled, Differential Comment Cancelled, Diff Path Review Cancelled, Hypersegmented Neuts Cancelled, Atypical Lymphocytes Cancelled, Reactive Lymphocytes Cancelled, Smudge Cells Cancelled, Toxic Granulation Cancelled, Toxic Vacuolation Cancelled, Dohle Bodies Cancelled, Rylee Rods Cancelled, Platelet Estimate Cancelled, Plt Morphology Comment Cancelled, RBC Morphology Cancelled, Polychromasia Cancelled, Hypochromasia Cancelled, Poikilocytosis Cancelled, Basophilic Stippling Cancelled, Anisocytosis Cancelled, Microcytosis Cancelled, Macrocytosis Cancelled, Spherocytes Cancelled, Sickle Cells Cancelled, Target Cells Cancelled, Tear Drop Cells Cancelled, Ovalocytes Cancelled, Stomatocytes Cancelled, Reyes-[place] Bodies Cancelled, [place] Cells Cancelled, Bite Cells Cancelled, Crenated Cell Cancelled, Acanthocytes (Spur) Cancelled, Rouleaux Cancelled, Schistocytes Cancelled 06/27/21 10:45: PT Cancelled, INR Cancelled, APTT Cancelled 06/27/21 10:45: Sodium Cancelled, Potassium Cancelled, Chloride Cancelled, Carbon Dioxide Cancelled, Anion Gap Cancelled, BUN Cancelled, Creatinine Cancelled, Estim Creat Clear Calc Cancelled, Est GFR (MDRD) Af Amer Cancelled, Est GFR (MDRD) Non-Af Cancelled, BUN/Creatinine Ratio Cancelled, Glucose Cancelled, Calcium Cancelled, Total Bilirubin Cancelled, AST Cancelled, ALT Cancelled, Alkaline Phosphatase Cancelled, Troponin I High Sens Cancelled, Total Protein Cancelled, Albumin Cancelled, Globulin Cancelled, Albumin/Globulin Ratio Cancelled 06/27/21 10:45: Lactic Acid Cancelled 06/27/21 11:04: Urine Color Yellow, Urine Clarity Clear, Urine pH 6.5, Ur Specific [place] 1.015, Urine Protein 30 H, Urine Glucose (UA) Normal, Urine Ketones Negative, Urine Occult Blood Negative, Urine Nitrite Negative, Urine Bilirubin Negative, Urine Urobilinogen Normal, Ur Leukocyte Esterase Negative, Urine RBC 0 SEEN, Urine WBC 0 SEEN, Ur Squamous Epith Cells 0 SEEN, Urine Bacteria 0 SEEN, Urine Mucus 0 SEEN 06/27/21 12:10: WBC 13.1 H, RBC 3.88 L, Hgb 11.6 L, Hct 39.7 L, MCV 102.3 H, MCH 29.9, MCHC 29.2 L, RDW Std Deviation 56.8 H, RDW Coeff of Imelda 15.1 H, Plt Count 200, MPV 11.2, Immature Gran % (Auto) 3.400 H, Neut % (Auto) 81.6 H, Lymph % (Auto) 3.4 L, Stephenson % (Auto) 11.0 H, Eos % (Auto) 0.1, Baso % (Auto) 0.5, Absolute Neuts (auto) 10.7 H, Absolute Lymphs (auto) 0.45 L, Nucleated RBC % 0.5, Differential Comment COMMENT 06/27/21 12:10: Sodium 140, Potassium 4.5, Chloride 94 L, Carbon Dioxide 42.0 H, Anion Gap 4 L, BUN 22 H, Creatinine 1.58 H, Estim Creat Clear Calc 55.94, Est GFR (MDRD) Af Amer 58 L, Est GFR (MDRD) Non-Af 48 L, BUN/Creatinine Ratio 13.9, Glucose 160 H, Calcium 8.2 L, Total Bilirubin 0.10 L, AST 33, ALT 35, Alkaline Phosphatase 108, Total Protein 6.0 L, Albumin 3.1 L, Globulin 2.9, Albumin/Globulin Ratio 1.1 06/27/21 15:10: PT 11.9, INR 0.9, APTT 30.5 06/27/21 15:10: Lactic Acid 1.2 06/27/21 15:10: Troponin I High Sens 36 06/27/21 17:00: Troponin I High Sens 30 06/27/21 21:00: Troponin I High Sens 33 06/28/21 04:00: WBC 12.2 H, RBC 3.45 L, Hgb 10.6 L, Hct 33.8 L, MCV 98.0 H, MCH 30.7, MCHC 31.4 L D, RDW Std Deviation 54.6 H, RDW Coeff of Imelda 15.0 H, Plt Count 187, MPV 10.9, Immature Gran % (Auto) 1.100 H, Neut % (Auto) 95.2 H, Lymph % (Auto) 1.7 L, Stephenson % (Auto) 1.9, Eos % (Auto) 0.0, Baso % (Auto) 0.1, Absolute Neuts (auto) 11.7 H, Absolute Lymphs (auto) 0.21 L, Nucleated RBC % 0, Differential Comment SCANNED 06/28/21 04:00: Sodium 137, Potassium 4.1, Chloride 95 L, Carbon Dioxide 37.0 H, Anion Gap 5, BUN 30 H, Creatinine 1.34 H, Estim Creat Clear Calc 65.95, Est GFR (MDRD) Af Amer 70, Est GFR (MDRD) Non-Af 58 L, BUN/Creatinine Ratio 22.4 H, Glucose 186 H, Calcium 8.2 L, TSH 0.70 Micro: Microbiology 06/27/21 11:05 Nasal Secretion SARS-CoV-2 Antigen (Rapid) - Final ABG Data ABG results: ABG 06/27/21 06/27/21 11:15 14:32 Specimen Type ART ART Sample Site L Radial L Radial pH 7.18 L* 7.37 Bicarbonate Actual 43.7 H 36.8 H Total CO2 47 39 Base Excess 15 H 12 H O2 Saturation 98 79 L O2 % 45 45 ABG pCO2 116.7 H* 63.9 H ABG pO2 152 H 47 L Respiration Rate 14 18 O2 Delivery Device Adult Vent Adult Vent Vent Mode AC AC Tidal Volume 400 450 POC PEEP 5 5 Crit Call To/Read Back Yes Radiography Diagnostic Testing: Radiology Impression Brain CT 06/27/21 10:46 IMPRESSION: Normal unenhanced CT scan of the brain. Electronically Signed: Kristopher Montano MD at 12:02 EST , Chest X-Ray 06/27/21 10:46 IMPRESSION: The tip of the nasogastric tube is in the body of the stomach. Electronically Signed: Kristopher Montano MD at 12:17 EST , ADDENDUM: 06/27/21 1325 Physical Exam Const General Appearance: disheveled, appears older than stated age, intubated and patient mechanically ventilated Orientation / Consciousness: comatose Nutritional Appearance: obese HEENT normocephalic and head/scalp atraumatic Neck no lymphadenopathy Chest Chest: abnormal inspection of the chest increased A-P diameter and symmetrical chest wall rise; Negative for crepitus Resp no retractions and no use of accessory muscles Auscultation: diminished lung sounds Cardio regular rhythm, S1 normal heart sound, S2 normal heart sound, no murmurs, no rub and no gallops Rate: tachycardic GI normal to inspection, nondistended, normoactive bowel sounds, soft to palpation, non-tender and non-distended Extremity General Extremity: clubbing and edema bilateral (1+) lower extremity; Negative for cyanosis Skin no rashes or lesions noted Skin Narrative: Multiple skin tags Neuro [place] Coma Scale: document GCS findings None None None 3 Sensorium / Orientation: obtunded Charges/Coding Procedures Hospitalists Procedures: [id number] Critial Care 1st Hr
[2021-06-28 06:16] LABS: Allen Test Positive; Base Excess 9 mmol/L (-2 to +2); Bicarbonate 33.3 mmol/L (22-26); Blood Gas Specimen Type ART; FI02 30; Mode CPAP/PS; O2 Delivery Device Adult Vent; PEEP 5; PO2 61 mmHG (75-100); PS 5; SITE L Radial; SO2 91 % (95-99); Total Carbon Dioxide 35 mmol/L; pCO2 48.8 mmHg (35-45); pH 7.44 (7.35-7.45)
[2021-06-28] MEDS: levoFLOXacin IV 750 MG/150 ML BAG 100 MG IV (09:58)
[2021-06-28] MEDS: Metoprolol Tartrate 25 MG Tablet PO (09:59)
[2021-06-28] MEDS: Enoxaparin 40 MG/0.4 ML Syringe SC (09:59)
[2021-06-28] MEDS: Levothyroxine 175 MCG Tablet PO (09:59)
[2021-06-28] MEDS: Famotidine 20 MG Tablet 40 MG PO (09:59)
--- NOTE | 2021-06-28 10:51 | PCM.PN.HOSP ---
Subjective Subjective extubated today. States that he had not use his trilogy machine in a bout 1.5 days Objective Data Objective Data Vital Signs: Vital Signs Temp Pulse Resp BP Pulse Ox 36.1 C L 123 H 18 167/108 H 96 06/28/21 10:00 06/28/21 10:00 06/28/21 10:00 06/28/21 10:00 06/28/21 10:00 Oxygen Flow Rate (L/min) 3 Oxygen Delivery Method Nasal Cannula Weight: 94 kg Body Mass Index (BMI) 28.8 Intake & Output: Intake and Output for Last 24 Hours 06/26/21 06/27/21 06/28/21 23:59 23:59 23:59 Intake Total 887.36 / 892.36 219.40 / 219.40 Output Total 250 / 525 675 / 675 Balance 637.36 / 367.36 -455.60 / -455.60 Lab / Micro Data Result Diagrams: 06/28/21 04:00 06/28/21 04:00 Labs: Laboratory Results - last 24 hr 06/27/21 10:45: WBC Cancelled, Corrected WBC Cancelled, RBC Cancelled, Hgb Cancelled, Hct Cancelled, MCV Cancelled, MCH Cancelled, MCHC Cancelled, RDW Std Deviation Cancelled, RDW Coeff of Imelda Cancelled, Plt Count Cancelled, MPV Cancelled, Immature Gran % (Auto) Cancelled, Neut % (Auto) Cancelled, Lymph % (Auto) Cancelled, [place] % (Auto) Cancelled, Eos % (Auto) Cancelled, Baso % (Auto) Cancelled, Absolute Neuts (auto) Cancelled, Absolute Lymphs (auto) Cancelled, Total Counted Cancelled, Neutrophils % (Manual) Cancelled, Band Neutrophils % Cancelled, Lymphocytes % (Manual) Cancelled, Monocytes % (Manual) Cancelled, Eosinophils % (Manual) Cancelled, Basophils % (Manual) Cancelled, Metamyelocytes % Cancelled, Myelocytes % Cancelled, Promyelocytes % Cancelled, Blast Cells % Cancelled, Plasma Cell % (Manual) Cancelled, Other Cells % Cancelled, Nucleated RBC % Cancelled, Nucleated RBCs/100 WBC Cancelled, Differential Comment Cancelled, Diff Path Review Cancelled, Hypersegmented Neuts Cancelled, Atypical Lymphocytes Cancelled, Reactive Lymphocytes Cancelled, Smudge Cells Cancelled, Toxic Granulation Cancelled, Toxic Vacuolation Cancelled, Dohle Bodies Cancelled, Rylee Rods Cancelled, Platelet Estimate Cancelled, Plt Morphology Comment Cancelled, RBC Morphology Cancelled, Polychromasia Cancelled, Hypochromasia Cancelled, Poikilocytosis Cancelled, Basophilic Stippling Cancelled, Anisocytosis Cancelled, Microcytosis Cancelled, Macrocytosis Cancelled, Spherocytes Cancelled, Sickle Cells Cancelled, Target Cells Cancelled, Tear Drop Cells Cancelled, Ovalocytes Cancelled, Stomatocytes Cancelled, [place] Bodies Cancelled, [place] Cells Cancelled, Bite Cells Cancelled, Crenated Cell Cancelled, Acanthocytes (Spur) Cancelled, Rouleaux Cancelled, Schistocytes Cancelled 06/27/21 10:45: PT Cancelled, INR Cancelled, APTT Cancelled 06/27/21 10:45: Sodium Cancelled, Potassium Cancelled, Chloride Cancelled, Carbon Dioxide Cancelled, Anion Gap Cancelled, BUN Cancelled, Creatinine Cancelled, Estim Creat Clear Calc Cancelled, Est GFR (MDRD) Af Amer Cancelled, Est GFR (MDRD) Non-Af Cancelled, BUN/Creatinine Ratio Cancelled, Glucose Cancelled, Calcium Cancelled, Total Bilirubin Cancelled, AST Cancelled, ALT Cancelled, Alkaline Phosphatase Cancelled, Troponin I High Sens Cancelled, Total Protein Cancelled, Albumin Cancelled, Globulin Cancelled, Albumin/Globulin Ratio Cancelled 06/27/21 10:45: Lactic Acid Cancelled 06/27/21 11:04: Urine Color Yellow, Urine Clarity Clear, Urine pH 6.5, Ur Specific [place] 1.015, Urine Protein 30 H, Urine Glucose (UA) Normal, Urine Ketones Negative, Urine Occult Blood Negative, Urine Nitrite Negative, Urine Bilirubin Negative, Urine Urobilinogen Normal, Ur Leukocyte Esterase Negative, Urine RBC 0 SEEN, Urine WBC 0 SEEN, Ur Squamous Epith Cells 0 SEEN, Urine Bacteria 0 SEEN, Urine Mucus 0 SEEN 06/27/21 12:10: WBC 13.1 H, RBC 3.88 L, Hgb 11.6 L, Hct 39.7 L, MCV 102.3 H, MCH 29.9, MCHC 29.2 L, RDW Std Deviation 56.8 H, RDW Coeff of Imelda 15.1 H, Plt Count 200, MPV 11.2, Immature Gran % (Auto) 3.400 H, Neut % (Auto) 81.6 H, Lymph % (Auto) 3.4 L, [place] % (Auto) 11.0 H, Eos % (Auto) 0.1, Baso % (Auto) 0.5, Absolute Neuts (auto) 10.7 H, Absolute Lymphs (auto) 0.45 L, Nucleated RBC % 0.5, Differential Comment COMMENT 06/27/21 12:10: Sodium 140, Potassium 4.5, Chloride 94 L, Carbon Dioxide 42.0 H, Anion Gap 4 L, BUN 22 H, Creatinine 1.58 H, Estim Creat Clear Calc 55.94, Est GFR (MDRD) Af Amer 58 L, Est GFR (MDRD) Non-Af 48 L, BUN/Creatinine Ratio 13.9, Glucose 160 H, Calcium 8.2 L, Total Bilirubin 0.10 L, AST 33, ALT 35, Alkaline Phosphatase 108, Total Protein 6.0 L, Albumin 3.1 L, Globulin 2.9, Albumin/Globulin Ratio 1.1 06/27/21 15:10: PT 11.9, INR 0.9, APTT 30.5 06/27/21 15:10: Lactic Acid 1.2 06/27/21 15:10: Troponin I High Sens 36 06/27/21 17:00: Troponin I High Sens 30 06/27/21 21:00: Troponin I High Sens 33 06/28/21 04:00: WBC 12.2 H, RBC 3.45 L, Hgb 10.6 L, Hct 33.8 L, MCV 98.0 H, MCH 30.7, MCHC 31.4 L D, RDW Std Deviation 54.6 H, RDW Coeff of Imelda 15.0 H, Plt Count 187, MPV 10.9, Immature Gran % (Auto) 1.100 H, Neut % (Auto) 95.2 H, Lymph % (Auto) 1.7 L, [place] % (Auto) 1.9, Eos % (Auto) 0.0, Baso % (Auto) 0.1, Absolute Neuts (auto) 11.7 H, Absolute Lymphs (auto) 0.21 L, Nucleated RBC % 0, Differential Comment SCANNED 06/28/21 04:00: Sodium 137, Potassium 4.1, Chloride 95 L, Carbon Dioxide 37.0 H, Anion Gap 5, BUN 30 H, Creatinine 1.34 H, Estim Creat Clear Calc 65.95, Est GFR (MDRD) Af Amer 70, Est GFR (MDRD) Non-Af 58 L, BUN/Creatinine Ratio 22.4 H, Glucose 186 H, Calcium 8.2 L, TSH 0.70 Micro: Microbiology 06/27/21 11:25 Sputum, Induced/[place] Respiratory Culture - Preliminary Appears to be normal respiratory jace. Further studies to follow. 06/27/21 11:04 Urine Catheter - Brown Urine Culture - Preliminary Culture exhibits no growth. 06/27/21 10:55 Blood Culture (Wb) - Right Wrist Blood Culture - Preliminary 06/27/21 11:05 Nasal Secretion SARS-CoV-2 Antigen (Rapid) - Final ABG Data ABG results: ABG 06/27/21 06/27/21 06/28/21 11:15 14:32 06:08 Specimen Type ART ART ART Sample Site L Radial L Radial L Radial pH 7.18 L* 7.37 7.44 Bicarbonate Actual 43.7 H 36.8 H 33.3 H Total CO2 47 39 35 Base Excess 15 H 12 H 9 H O2 Saturation 98 79 L 91 L O2 % 45 45 30 ABG pCO2 116.7 H* 63.9 H 48.8 H ABG pO2 152 H 47 L 61 L Ty Test Positive Respiration Rate 14 18 O2 Delivery Device Adult Vent Adult Vent Adult Vent Vent Mode AC AC CPAP/PS Tidal Volume 400 450 POC PEEP 5 5 5 POC Pressure Suppt 5 Crit Call To/Read Back Yes Radiography Diagnostic Testing: Radiology Impression Brain CT 06/27/21 10:46 IMPRESSION: Normal unenhanced CT scan of the brain. Electronically Signed: Kristopher Montano MD at 12:02 EST , Chest X-Ray 06/27/21 10:46 IMPRESSION: The tip of the nasogastric tube is in the body of the stomach. Electronically Signed: Kristopher Montano MD at 12:17 EST , ADDENDUM: 06/27/21 1325 Physical Exam Const alert and no apparent distress HEENT head/scalp atraumatic and moist oral mucous membranes Head and Scalp: normocephalic Resp normal respiratory effort and no retractions Resp Narrative: diminished BS Cardio regular rate, regular rhythm, S1 normal heart sound and S2 normal heart sound Skin no rashes or lesions noted Assessment & Plan Assessment/Plan (1) Acute hypercapnic respiratory failure: (2) Acute exacerbation of COPD with asthma: PLAN: 1. Acute on chronic hypercapnic respiratory failure Intubated 3/, extubated 3/ Likely due to noncompliance with trilogy machine and COPD. Pt endorses awaking several times/night. Advised changing caffeine from afternoon/evening to AM and get on a regular sleep schedule. Patient has been intubated roughly 4-5 times over the past year according to his Chest x-ray is unremarkable for any infiltrates and his COVID-19 was negative. Complicated by his narcotic use but denies any suicide attempt or ideation. CCM consult Given his frequent hospitalizations and the fact that he is never been here before we will request records from [facility] where he normally is treated. Follow up with Dr. Rogers as outpt. 2. Acute COPD exacerbation Bronchodilators and methylprednisolone 3. VTE prophylaxis with enoxaparin 4. COVID-19 vaccination status: Patient is vaccinated for COVID-19 according to his spouse 5. Advance care planning. full code stATUS. TF to [facility]. Charges/Coding Visit Charges Inpatient E&M: 76298 Subs Hosp L2
[2021-06-28] MEDS: Acetaminophen 325 MG Tablet 650 MG PO (11:49)
[2021-06-28] MEDS: Methadone 10 MG Tablet PO ×2 (11:50→21:35)
[2021-06-28] MEDS: 0.9% Saline Lock 10 ML Syringe IV ×2 (13:44→21:35)
--- NOTE | 2021-06-28 15:19 | CASEMGMT ---
RN CRUZ Assessment: Face to Face with pt for initial transition planning/care coordination assessment. RN CM introduced self and role at [facility], pt voices understanding and consents to assessment. Pt is A/O x4 and answers all questions appropriately at this time. Pt sitting up in chair with O2 on in no distress. Care providers, pharmacy, and demographics verified/updated. Admitting Dx: resp failure PCP:Marito Specialists:toshia Alvares Preferred Pharmacy: [facility] Insurance: [facility] Pounce Prescription Benefit: yes LNOK: Deena Horton, Living Arrangements: Pt lives with and adult son in a single story house with one step to enter. Pt reports he is I in ADL's and denies concerns at home. Transportation: Pt drives self and denies concerns with transportation. DME/HHC/SNF: Pt has O2 at home through [facility] [place]. States he wears 4L cont at home. Pt has trilegy and portable O2. He will have portable O2 brought in for dc. Pt states he is active with palliative care through [facility]. He denies hx of HHC or SNF stays. Pt states his insurance is calling him all the time to offer homecare services and he does not need them. Pt states no concerns with going home at time of dc. He states he will get ahold of the RN CM if he needs anything. Pt states no further concerns/needs. CM to follow. Advised pt to ask CM if any further question/concerns/needs arise, voices understanding. Pt Goal: Home Plan: Home
[2021-06-28] MEDS: Furosemide 20 MG Tablet 60 MG PO (16:49)
[2021-06-28] MEDS: Gabapentin 300 MG Capsule PO (21:35)
[2021-06-28] MEDS: Methylphenidate HCl 5 MG Tablet PO (21:35)
[2021-06-29] VITALS (10 sets, daily range): BP systolic 139–167; BP diastolic 97–107; PULSE 98–117; RESP 12–22; TEMP 36.1–36.3; O2SAT 92–100
[2021-06-29] MEDS: Ipratropium/Albuterol Sulfate 3 ML AMPUL.NEB INHALATION ×3 (02:22→11:04)
[2021-06-29 04:10] LABS: Absolute Lymphocyte Count 0.18 X10^3/uL (0.83-4.51); Basophil# 0.01 X10^3/uL; Basophil% 0.1 % (0-1); Differential Indicated SCAN CRITERIA MET; Hematocrit 34.9 % (40-54); Hemoglobin 11.2 g/dL (13.0-16.5); Lymphocyte # 0.18 X10^3/ul (0.83-4.51); Lymphocyte % 1.2 % (19-41); Mean Corp Hgb Conc 32.1 g/dL (32-36); Mean Corpuscular Hgb 30.5 pg (27.0-32.0); Mean Corpuscular Volume 95.1 fL (80-94); Mean Platelet Vol. 11.1 fl (6.2-12.0); Monocyte# 0.31 X10^3/uL; Monocyte% 2.1 % (0-10); NRBC Flagged by Analyzer 0 % (0-5); Neutrophil # 14.01 X10^3/uL (2.7-7.7); Neutrophil % 95.7 % (47-70); POSITIVE DIFFERENTIAL YES; Platelet Count 201 K/mm3 (150-450); RBC Distribution Width SD 52.5 fl (35.1-43.9); Red Blood Count 3.67 M/mm3 (4.6-6.2); White Blood Count 14.6 K/mm3 (4.4-11.0)
[2021-06-29 04:23] LABS: Anion Gap 5 (5-15); BUN 36 mg/dL (7-18); BUN/Creat Ratio 25.7 RATIO (10-20); Calcium,Total 8.8 mg/dL (8.5-10.1); Chloride 93 mmol/L (98-107); EST Glomerular Filtration Rate 55 mL/min (>60); Est Glom Filt Rate - Afr Amer 67 mL/min (>60); Estimated Creatinine Clearance 63.13 ml/min; Glucose 222 mg/dL (74-106); Potassium 4.1 mmol/L (3.5-5.1); Sodium Level 136 mmol/L (136-145)
[2021-06-29 04:26] LABS: Anisocytosis 1+
[2021-06-29] MEDS: Levothyroxine 175 MCG Tablet PO (06:02)
[2021-06-29] MEDS: 0.9% Saline Lock 10 ML Syringe IV ×2 (06:02→09:24)
[2021-06-29] MEDS: Acetaminophen 325 MG Tablet 650 MG PO (06:06)
--- NOTE | 2021-06-29 06:38 | PCM.PN.INT ---
Assessment & Plan Assessment/Plan (1) Acute hypercapnic respiratory failure: (2) Acute exacerbation of COPD with asthma: (3) Acute metabolic encephalopathy: (4) Chronic kidney disease (CKD) stage G3a/A1, moderately decreased glomerular filtration rate (GFR) between 45-59 mL/min/1.73 square meter and albuminuria creatinine ratio less than 30 mg/g: PLAN: RECOMMENDATIONS: 1. Complete a 5-day burst of Levaquin 2. Increase Lopressor 3. Wean supplemental oxygen as tolerated 4. Walking oximetry prior to discharge 5. Continue bronchodilators. Complete a 5-day burst of prednisone prior to weaning to baseline 20 mg 6. Outpatient follow-up with primary technology consultant 7. Potentially discharge if able to ambulate on 6 L or less IMPRESSIONS: 1. Acute on chronic combined respiratory failure with possible COPD exacerbation Patient reportedly with advanced lung disease at baseline. Labs are consistent with an element of CO2 retention. Patient successfully extubated yesterday. Patient likely has multifactorial etiology for respiratory failure including noncompliance with trilogy and COPD exacerbation. Patient is on chronic steroids at 20 mg/day. Continue bronchodilators. Okay to order a total 5 days of Levaquin (7 total days of antibiotic therapy) and wean steroids from 40 mg to 20 mg over a week 2. Acute metabolic encephalopathy Resolved. Patient's carbon oxide greater than 100 on presentation. However, patient was also found saturating 80%. Cannot exclude an element of anoxic encephalopathy. We will try to minimize sedation and monitor clinically. No seizure activity has been noted. Delirium protocol. Await extubation and then question patient. Memory issues can result from minor hypoxic injury. 3. Chronic kidney disease stage III Patient's reported that he was of his usual health the day prior to presentation. Patient currently with a 10-1 BUN to creatinine ratio. Clinical suspicion is chronic kidney disease. We will continue to monitor renal function. No indication for renal replacement therapy at this time. Patient does have an element of chronic metabolic alkalosis to compensate for respiratory acidosis. No indication for renal replacement therapy at this time. Patient does not appear to be acutely fluid overloaded to require Lasix therapy 4. History of lung cancer/poor compliance with NIV/repeated admissions/chronic opioids/hypothyroidism Complicates care, management, recovery and prognosis. Okay to reinitiate methadone from my perspective now the fentanyl drip has been discontinued. Chronic narcotics do increases risk of repeated respiratory failure. Patient is reportedly a full code. Subjective Subjective Patient did well overnight. Patient successfully extubated yesterday without complications. Patient states he feels subjectively improved compared to yesterday. Patient has had a cough that is described as darker than normal. Patient was able to provide additional information. Patient was placed on Levaquin on Wednesday secondary to some ear issues. Patient stated that he had inadvertently not used his Trilogy, but has no issues with using it at baseline. Patient follows with [facility], but sees pulmonary rarely. Objective Data Objective Data Vital Signs: Vital Signs Temp Pulse Resp BP Pulse Ox 36.3 C L 101 H 12 167/99 H 96 06/29/21 01:30 06/29/21 04:00 06/29/21 02:22 06/29/21 01:30 06/29/21 02:22 Oxygen Flow Rate (L/min) 4 Oxygen Delivery Method Bi-pap Weight: 92 kg Body Mass Index (BMI) 28.8 Intake & Output: Intake and Output for Last 24 Hours 06/27/21 06/28/21 06/29/21 23:59 23:59 23:59 Intake Total 887.36 / 892.36 1119.40 / 1119.40 Output Total 250 / 525 2175 / 2175 675 / 675 Balance 637.36 / 367.36 -1055.60 / -1055.60 -675 / -675 Lab / Micro Data Result Diagrams: 06/29/21 04:00 06/29/21 04:00 Labs: Laboratory Results - last 24 hr 06/29/21 04:00: WBC 14.6 H, RBC 3.67 L, Hgb 11.2 L, Hct 34.9 L, MCV 95.1 H, MCH 30.5, MCHC 32.1, RDW Std Deviation 52.5 H, RDW Coeff of Imelda 15.0 H, Plt Count 201, MPV 11.1, Immature Gran % (Auto) 0.900, Neut % (Auto) 95.7 H, Lymph % (Auto) 1.2 L, [place] % (Auto) 2.1, Eos % (Auto) 0.0, Baso % (Auto) 0.1, Absolute Neuts (auto) 14.0 H, Absolute Lymphs (auto) 0.18 L, Nucleated RBC % 0, Anisocytosis 1+ 06/29/21 04:00: Sodium 136, Potassium 4.1, Chloride 93 L, Carbon Dioxide 38.0 H, Anion Gap 5, BUN 36 H, Creatinine 1.40 H, Estim Creat Clear Calc 63.13, Est GFR (MDRD) Af Amer 67, Est GFR (MDRD) Non-Af 55 L, BUN/Creatinine Ratio 25.7 H, Glucose 222 H, Calcium 8.8 Micro: Microbiology 06/27/21 11:25 Sputum, Induced/Lukens Gram Stain - Final 06/27/21 11:25 Sputum, Induced/Lukens Respiratory Culture - Preliminary Appears to be normal respiratory jace. Further studies to follow. 06/27/21 11:04 Urine Catheter - Brown Urine Culture - Preliminary Culture exhibits no growth. 06/27/21 10:55 Blood Culture (Wb) - Right Wrist Blood Culture - Preliminary 06/27/21 11:05 Nasal Secretion SARS-CoV-2 Antigen (Rapid) - Final Physical Exam Const alert General Appearance: cooperative, comfortable and appears older than stated age Orientation / Consciousness: awake Nutritional Appearance: obese HEENT normocephalic and head/scalp atraumatic Neck no lymphadenopathy Chest Chest: abnormal inspection of the chest increased A-P diameter and symmetrical chest wall rise; Negative for crepitus Resp no retractions and no use of accessory muscles Auscultation: wheezes and diminished lung sounds; Negative for rales or rhonchi Cardio regular rhythm, S1 normal heart sound, S2 normal heart sound, no murmurs, no rub and no gallops Rate: tachycardic GI normal to inspection, nondistended, normoactive bowel sounds, soft to palpation, non-tender and non-distended Extremity General Extremity: clubbing and edema bilateral (1+) lower extremity; Negative for cyanosis Skin no rashes or lesions noted Skin Narrative: Multiple skin tags Neuro oriented x3, CN's II-XII intact bilaterally, moves all extremities and no sensory deficits noted [place] Coma Scale: document GCS findings Spontaneous Obeys Commands Oriented 15 Charges/Coding Visit Charges Inpatient E&M: 99716 Subs Hosp L2
[2021-06-29] MEDS: Methylphenidate HCl 5 MG Tablet PO (09:23)
[2021-06-29] MEDS: levoFLOXacin IV 750 MG/150 ML BAG 100 MG IV (09:23)
[2021-06-29] MEDS: Methadone 10 MG Tablet PO (09:23)
[2021-06-29] MEDS: Furosemide 20 MG Tablet 60 MG PO (09:24)
[2021-06-29] MEDS: Enoxaparin 40 MG/0.4 ML Syringe SC (09:24)
[2021-06-29] MEDS: Metoprolol(XL)Succ 50 MG Tablet PO (09:26)
[2021-06-29] MEDS: HYDROmorphone 2 MG TABLET PO (09:33)
--- NOTE | 2021-06-29 10:53 | DCINST_ITS ---
Discharge Instructions Diet Discharge Diet: No restrictions Activity Discharge Activity: Return to Normal Activity Follow Up Care Test Results: Test results from this visit will be discussed in further detail at your follow-up appointment, if applicable. Discharge Plan Admission Admit Date/Time: 06/27/21 13:07 Primary Reason for Your Visit: Respiratory failure Attending Provider: Herminio Ramirez Primary Care Provider: Sergio Devi Consulting Providers: Brandan Dial ; Saad Elena ; America Lopez MANAGER PERSONNEL SELECTION Instructions Additional Instructions / Restrictions: 90 and 95%. Wear your trilogy machine at night. Change caffeine to the morning and try to have a set sleep schedule at night. Wear your trilogy machine with naps as well. Discharge Orders/Prescriptions Prescriptions: New levofloxacin 750 mg tablet 750 mg PO DAILY Qty: 2 RF: 0 metoprolol succinate 50 mg Tablet Extended Release 24 Hr 50 mg PO DAILY Qty: 30 RF: 0 prednisone 20 mg tablet 40 mg PO DAILY Qty: 60 RF: 0 Ear Drops (carbamide peroxide) 6.5 % drops 5 drp LEFT EAR DAILY 4 Days Qty: 15 RF: 0 Continued levothyroxine 175 mcg tablet 175 mcg PO DAILY RF: 0 ipratropium-albuterol 0.5 mg-3 mg(2.5 mg base)/3 mL solution for nebulization 3 ml inhalation Q4H PRN PRN (Reason: SOB) RF: 0 methadone 10 mg tablet 10 mg PO BID RF: 0 methylphenidate HCl 5 mg tablet 5 mg PO BID RF: 0 hydromorphone 2 mg tablet 2 mg PO Q8 PRN (Reason: Pain) RF: 0 gabapentin 300 mg capsule 300 mg PO QHS RF: 0 furosemide 20 mg tablet 60 mg PO BID RF: 0 Discontinued prednisone 10 mg tablet RF: 0 metoprolol succinate 25 mg tablet extended release 24 hr 25 mg PO DAILY RF: 0 Referrals / Follow Up: Sergio Devi MD [Primary Care Provider] - Within 1 Week Smooth Rogers MD [NON-STAFF] - Within 1 Month Disposition Disposition (needs filled in before D/C Order can be placed): Home, Self Care
--- NOTE | 2021-06-29 11:02 | DS.PCM_ITS ---
Providers Date of Admission: 06/27/21 Primary Care Physician: Dr. Sergio Devi MD Consultations 06/27/21 14:29 Consult: Extermination Inspector / Pulmonary Medicine Routine Consulting Provider: Pulmonary Medicine charles Chioma Reason for Consult: respiratory failure EMERGENT Consult: No MD Notified: Yes Date Notified: 06/27/21 Time Notified: 13:16 Method of Notification: Text Reason For Visit: RESP FAILURE Diagnosis Discharge Diagnosis (1) Acute hypercapnic respiratory failure: Status: Acute Code(s): J96.02 - Acute respiratory failure with hypercapnia (2) Acute exacerbation of COPD with asthma: Status: Chronic Code(s): J44.1 - Chronic obstructive pulmonary disease with (acute) exacerbation; J45.901 - Unspecified asthma with (acute) exacerbation (3) Acute metabolic encephalopathy: Status: Acute Code(s): G93.41 - Metabolic encephalopathy (4) Chronic kidney disease (CKD) stage G3a/A1, moderately decreased glomerular filtration rate (GFR) between 45-59 mL/min/1.73 square meter and albuminuria creatinine ratio less than 30 mg/g: Status: Chronic Code(s): N18.31 - Chronic kidney disease, stage 3a Medications at Discharge Home Medications furosemide 60 mg PO BID 06/27/21 gabapentin 300 mg PO QHS 06/27/21 hydromorphone 2 mg PO Q8 PRN 06/27/21 ipratropium-albuterol 3 ml INHALATION Q4H PRN PRN 06/27/21 levothyroxine 175 mcg PO DAILY 06/27/21 methadone 10 mg PO BID 06/27/21 methylphenidate HCl 5 mg PO BID 06/27/21 carbamide peroxide [Ear Drops (carbamide peroxide)] 5 drp LEFT EAR DAILY 4 Days #15 ml 06/29/21 levofloxacin 750 mg PO DAILY #2 tab 06/29/21 metoprolol succinate 50 mg PO DAILY #30 tab 06/29/21 prednisone 40 mg PO DAILY #60 tab 06/29/21 Hospital Course Operations None Procedures Intubation and PICC line placement Summary of Care Provided Minutes Spent on Discharge: 35 Hospital Course: This is a 48-year-old male presents with unresponsiveness. Patient was found to be in hypercapnic respiratory failure with PCO2 116. Patient was intubated. Patient was intubated on the fourth and then extubated on the fifth. Patient had hypercapnic respiratory failure due to noncompliance with his trilogy machine. Patient states that he is normally compliant but had not used it for about a day and a half. He relates that he has difficulty sleeping at night and then just fell asleep without the intention of going to sleep and was found unresponsive. Patient overall did well. Some modifications were made to his medications such as increasing his metoprolol succinate from 25-50 daily due to tachycardia as well started on levofloxacin. Patient did complain of some left ear pain that some fluid in his ear. Patient did have wax plug within his ear so could not visualize his tympanic membrane on his left. Patient started to take Debrox drops at home. Patient also be on a 5-day burst of prednisone. He has 10 mg on his MAR but he states that he takes 20 mg in the morning and 5 mg at night. Anticipate patient will continue to require 20 mg. Patient did follow-up with his director compliance in regards to continue to wean his prednisone. Physical Exam Const alert HEENT normocephalic, head/scalp atraumatic, hearing grossly normal bilaterally and moist oral mucous membranes HEENT Narrative: Wax impaction in his left ear canal, could not visualize the tympanic membrane. Right tympanic membrane was without effusion. Resp normal respiratory effort and no retractions Auscultation: wheezes Cardio Cardio Narrative: Tachycardic but regular. GI normal to inspection, nondistended, normoactive bowel sounds and soft to palpation Neuro Sensorium / Orientation: awake and alert Psych affect normal Weight / BMI Weight Weight: 92 kg Body Mass Index (BMI) 28.8 ABG / Lab / Microbiology Data Result Diagrams: 06/29/21 04:00 06/29/21 04:00 Laboratory: Laboratory Results - last 24 hr 06/29/21 04:00: WBC 14.6 H, RBC 3.67 L, Hgb 11.2 L, Hct 34.9 L, MCV 95.1 H, MCH 30.5, MCHC 32.1, RDW Std Deviation 52.5 H, RDW Coeff of Imelda 15.0 H, Plt Count 201, MPV 11.1, Immature Gran % (Auto) 0.900, Neut % (Auto) 95.7 H, Lymph % (Auto) 1.2 L, [place] % (Auto) 2.1, Eos % (Auto) 0.0, Baso % (Auto) 0.1, Absolute Neuts (auto) 14.0 H, Absolute Lymphs (auto) 0.18 L, Nucleated RBC % 0, Anisocytosis 1+ 06/29/21 04:00: Sodium 136, Potassium 4.1, Chloride 93 L, Carbon Dioxide 38.0 H, Anion Gap 5, BUN 36 H, Creatinine 1.40 H, Estim Creat Clear Calc 63.13, Est GFR (MDRD) Af Amer 67, Est GFR (MDRD) Non-Af 55 L, BUN/Creatinine Ratio 25.7 H, Glucose 222 H, Calcium 8.8 Microbiology: Microbiology 06/27/21 10:55 Blood Culture (Wb) - Right Wrist Blood Culture - Preliminary Coag Negative Staph 06/27/21 11:25 Sputum, Induced/Lukens Gram Stain - Final 06/27/21 11:25 Sputum, Induced/Lukens Respiratory Culture - Final Presumptive C albicans 06/27/21 11:04 Urine Catheter - Brown Urine Culture - Final Culture exhibits no growth. 06/27/21 11:05 Nasal Secretion SARS-CoV-2 Antigen (Rapid) - Final D/C Instructions Discharge Diet: No restrictions Meaningful Use Info Meaningful Use Diagnoses (Choose all that apply): None applicable Discharge Plan Admission Admit Date/Time: 06/27/21 13:07 Primary Reason for Your Visit: Respiratory failure Attending Provider: Herminio Ramirez Primary Care Provider: Sergio Devi Consulting Providers: Brandan Dial ; Saad Elena ; America Lopez DEMAND PLANNING MANAGER Instructions Additional Instructions / Restrictions: 90 and 95%. Wear your trilogy machine at night. Change caffeine to the morning and try to have a set sleep schedule at night. Wear your trilogy machine with naps as well. Discharge Orders/Prescriptions Prescriptions: New levofloxacin 750 mg tablet 750 mg PO DAILY Qty: 2 RF: 0 metoprolol succinate 50 mg Tablet Extended Release 24 Hr 50 mg PO DAILY Qty: 30 RF: 0 prednisone 20 mg tablet 40 mg PO DAILY Qty: 60 RF: 0 Ear Drops (carbamide peroxide) 6.5 % drops 5 drp LEFT EAR DAILY 4 Days Qty: 15 RF: 0 Continued levothyroxine 175 mcg tablet 175 mcg PO DAILY RF: 0 ipratropium-albuterol 0.5 mg-3 mg(2.5 mg base)/3 mL solution for nebulization 3 ml inhalation Q4H PRN PRN (Reason: SOB) RF: 0 methadone 10 mg tablet 10 mg PO BID RF: 0 methylphenidate HCl 5 mg tablet 5 mg PO BID RF: 0 hydromorphone 2 mg tablet 2 mg PO Q8 PRN (Reason: Pain) RF: 0 gabapentin 300 mg capsule 300 mg PO QHS RF: 0 furosemide 20 mg tablet 60 mg PO BID RF: 0 Discontinued prednisone 10 mg tablet RF: 0 metoprolol succinate 25 mg tablet extended release 24 hr 25 mg PO DAILY RF: 0 Referrals / Follow Up: Sergio Devi MD [Primary Care Provider] - Within 1 Week Smooth Rogers MD [NON-STAFF] - Within 1 Month Disposition Disposition (needs filled in before D/C Order can be placed): Home, Self Care Charges/Coding Visit Charges Inpatient E&M: 90166 Disch Hosp
== END 2021-06-29 12:15 | disposition home or self-care (01) | DRG 189 ==
LOC: ED 12:51 → ICU 13:34
PROVIDERS: Emergency Provider Emergency Medicine; PCP Family Medicine
DX: J96.22 Acute and chronic respiratory failure with hypercapnia (principal); G93.41 Metabolic encephalopathy; J44.1 Chronic obstructive pulmonary disease with (acute) exacerbation; N18.31 Chronic kidney disease, stage 3a; F17.210 Nicotine dependence, cigarettes, uncomplicated; F17.220 Nicotine dependence, chewing tobacco, uncomplicated; G47.30 Sleep apnea, unspecified; E03.9 Hypothyroidism, unspecified; H92.02 Otalgia, left ear; Z99.81 Dependence on supplemental oxygen; Z20.822 Contact with and (suspected) exposure to COVID-19; Z92.3 Personal history of irradiation; Z92.21 Personal history of antineoplastic chemotherapy; Z91.19 Patient's noncompliance with other medical treatment and regimen; Z79.899 Other long term (current) drug therapy; Z79.891 Long term (current) use of opiate analgesic; Z85.118 Personal history of other malignant neoplasm of bronchus and lung; E66.9 Obesity, unspecified; Z79.52 Long term (current) use of systemic steroids
CPT/HCPCS: 31500; 31720; 36569; 36600; 51702; 70450; 71045; 80048; 80053; 81001; 82803; 83605; 84443; 84484; 85025; 85610; 85730; 87040; 87070; 87086; 87205; 87426; 93005; 94002; 94003; 94640; 94660; 94667; 97110; 97162; 97166; 97802; 99251; 99285; 99406; J7030; A4216; G0463; J3010

== ENCOUNTER 2021-08-16 20:58 | Inpatient (IN) | payer MEDICARE, SELFPAY ==
[2021-08-16 20:59] VITALS: BP 168/129; PULSE 119; PULSE 122; RESP 12; RESP 23; TEMP 36.4; O2SAT 99; BMI 29.2
[2021-08-16] MEDS: Etomidate 20 MG/10 ML Vial IV (21:00)
[2021-08-16] MEDS: Succinylcholine Chloride 200 MG/10 ML Vial 100 MG IV (21:01)
[2021-08-16 21:05] VITALS: PULSE 135; RESP 14; RESP 24; O2SAT 95
[2021-08-16] MEDS: LORazepam 2 MG/ML Syringe IV (21:06)
--- NOTE | 2021-08-16 21:06 | EKG12_ITS ---
Test Reason : RESPFAILURE Blood Pressure : / mmHG Vent. Rate : 129 BPM Atrial Rate : 129 BPM P-R Int : 118 ms QRS Dur : 088 ms QT Int : 296 ms P-R-T Axes : 077 -68 088 degrees QTc Int : 433 ms Sinus tachycardia Right atrial enlargement Left axis deviation Inferior infarct , age undetermined Anteroseptal infarct , age undetermined Abnormal ECG Confirmed by EUGENIA WOOD, MALLY ([id number]), editor sound OMAR STEINBERG ([id number]) on 08/19/2021 9:23:03 AM Referred By: Confirmed By:MALLY BELLO MD
--- NOTE | 2021-08-16 21:06 | RAD_ITS ---
STUDY: X-RAY CHEST REASON FOR EXAM: Male, 56 years old. ett placement PT INTUBATED AFTER PRESENTING WITH RESP. DISTRESS TECHNIQUE: Single AP portable view of the chest. COMPARISON: None. FINDINGS: Endotracheal tube terminates 4 cm above the leora. Esophagogastric tube extends. The lungs are clear and expanded. There is no demonstrated pleural abnormality. Normal size heart. Normal mediastinum and magalys. Normal visualized pulmonary arteries. Normal visualized aortic arch and descending thoracic aorta. Fusion hardware of the lower cervical spine. Normal visualized ribs, clavicles, and shoulders. There is no demonstrated abnormality of the visualized soft tissue structures of the upper abdomen. RAD/Chest 1 View (Portable) IMPRESSION: Endotracheal and esophagogastric tubes, as above. Electronically Signed: Joe Mora MD ([place]) at 21:48 EDT ,
--- NOTE | 2021-08-16 21:10 | ED.VIS.DYS ---
HPI History of Present Illness Chief Complaint: Shortness of Breath Informant: EMS Narrative Narrative: EMS brings this patient with severe respiratory distress, history of severe COPD and lung cancer undergoing treatment, full code. They state that he was lethargic and does take medication for pain, so they gave him 2 mg of IV Narcan, they state as a result of this he immediately sat up and then immediately laid back down and was obtunded again so they did it again with another 2 mg which resulted in nothing happening. Very tight lungs, respiratory distress, bagging and route. Very limited history able to be obtained other than after discussing with the , they state he is a full code at this time. They did provide Solu-Medrol [address] [facility] Medical History COPD (chronic obstructive pulmonary disease) Emphysema lung Lung cancer Home Medications furosemide 60 mg PO BID 06/27/21 [History Last Taken Unknown] gabapentin 300 mg PO QHS 06/27/21 [History Last Taken Unknown] hydromorphone 2 mg PO Q8 PRN 06/27/21 [History Last Taken Unknown] ipratropium-albuterol 3 ml INHALATION Q4H PRN PRN 06/27/21 [History Last Taken Unknown] levothyroxine 175 mcg PO DAILY 06/27/21 [History Last Taken Unknown] methadone 10 mg PO BID 06/27/21 [History Last Taken Unknown] methylphenidate HCl 5 mg PO BID 06/27/21 [History Last Taken Unknown] carbamide peroxide [Ear Drops (carbamide peroxide)] 5 drp LEFT EAR DAILY 4 Days #15 ml 06/29/21 [Rx Last Taken Unknown] levofloxacin 750 mg PO DAILY #2 tab 06/29/21 [Rx Last Taken Unknown] metoprolol succinate 50 mg PO DAILY #30 tab 06/29/21 [Rx Last Taken Unknown] prednisone 40 mg PO DAILY #60 tab 06/29/21 [Rx Last Taken Unknown] Allergy/AdvReac Type Severity Reaction Status Date / Time No Known Allergies Allergy Verified 06/27/21 10:46 Family History unable to obtain Surgical History unable to obtain Social History Smoking Status: Current every day smoker tobacco type: cigarettes and smokeless tobacco ROS ROS ED Review of Systems ROS Unobtainable: due to mental status EXAM Physical Exam Const Vital Signs: 08/16/21 20:59 08/16/21 21:05 08/16/21 21:15 Temperature 97.6 F L 96.9 F L Temperature Source Temporal Temporal Pulse Rate 122 H 135 H 130 H Respiratory Rate 12 24 H 27 H Respiratory Pattern Tachypnea Blood Pressure 168/129 H Blood Pressure Mean 142 Pulse Ox 99 95 100 Oxygen Delivery Method Mechanical Ventilator Fraction of Inspired Oxygen (FIO2) 100 45 08/16/21 21:21 08/16/21 22:09 Temperature 97.2 F L Temperature Source Temporal Pulse Rate 137 H Respiratory Rate 35 H Respiratory Pattern Blood Pressure 153/102 H Blood Pressure Mean 119 Pulse Ox 92 Oxygen Delivery Method Mechanical Ventilator Mechanical Ventilator Fraction of Inspired Oxygen (FIO2) 92 Positive well nourished, well developed and obese Constitutional Narrative: Obtunded, acute respiratory distress with central cyanosis General Appearance ED: well developed Nutritional Appearance: obese HEENT Reports moist mucous membranes normocephalic and atraumatic Eyes Eyes Narrative: Pupils equal, about 3-4 mm, sluggish but reactive bilaterally Neck full ROM, supple and no meningeal signs Resp Resp Narrative: Sounds very tight, slight wheezes expiratory bilaterally symmetrically, trachea midline, obtunded Effort and Inspection: respiratory distress and prolonged expiratory phase Cardio regular rate and regular rhythm Jugular Venous Distention: Negative for JVD Rate: tachycardic GI non-tender and non-distended Auscultation: normoactive bowel sounds Palpation: soft Back/Spine no CVA tenderness General Back: other FROM Extremity normal to inspection General Extremety ED: Negative for edema, pulses abnormal or tenderness General Extremity: Negative for edema or pulses abnormal Neuro no sensory deficits noted Neuro Narrative: Moving all 4 extremities in withdrawal to pain [place] Coma Scale: document GCS findings None Withdraws to Pain None 6 Sensorium / Orientation: obtunded Meningeal Signs: no meningeal signs Skin no rashes or lesions noted and no wounds Skin Narrative: Central cyanosis MDM MDM MDM Narrative Medical decision making narrative: Patient intubated upon arrival, EMS talked to on the phone, and confirmed that he is a full code and not a DNR/DO NOT INTUBATE. We stabilized him on the ventilator, as we placed him on propofol followed by fentanyl drips to keep him sedated and resting, as well as albuterol, terbutaline, magnesium infiltration, he already received Solu-Medrol. Patient has very poor access. We did have a 20-gauge IV in his wrist, however nurses were unable to get blood. Given the drips, I agreed that a central line was indicated with this critically ill patient. Given that he has a very obese neck and abdomen, a subclavian was placed see the procedure note. Blood was obtained at this point. Lab Data Attestation: I reviewed the patient's lab results. Labs: Laboratory Results - last 24 hr 08/16/21 08/16/21 08/16/21 21:20 22:30 22:30 WBC Cancelled Corrected WBC Cancelled RBC Cancelled Hgb Cancelled Hct Cancelled MCV Cancelled MCH Cancelled MCHC Cancelled RDW Std Deviation Cancelled RDW Coeff of Imelda Cancelled Plt Count Cancelled MPV Cancelled Immature Gran % (Auto) Cancelled Neut % (Auto) Cancelled Lymph % (Auto) Cancelled Citrus % (Auto) Cancelled Eos % (Auto) Cancelled Baso % (Auto) Cancelled Absolute Neuts (auto) Cancelled Absolute Lymphs (auto) Cancelled Total Counted Cancelled Neutrophils % (Manual) Cancelled Band Neutrophils % Cancelled Lymphocytes % (Manual) Cancelled Monocytes % (Manual) Cancelled Eosinophils % (Manual) Cancelled Basophils % (Manual) Cancelled Metamyelocytes % Cancelled Myelocytes % Cancelled Promyelocytes % Cancelled Blast Cells % Cancelled Plasma Cell % (Manual) Cancelled Other Cells % Cancelled Nucleated RBC % Cancelled Nucleated RBCs/100 WBC Cancelled Differential Comment Cancelled Diff Path Review Cancelled Hypersegmented Neuts Cancelled Atypical Lymphocytes Cancelled Reactive Lymphocytes Cancelled Smudge Cells Cancelled Toxic Granulation Cancelled Toxic Vacuolation Cancelled Dohle Bodies Cancelled Rylee Rods Cancelled Platelet Estimate Cancelled Plt Morphology Comment Cancelled RBC Morphology Cancelled Polychromasia Cancelled Hypochromasia Cancelled Poikilocytosis Cancelled Basophilic Stippling Cancelled Anisocytosis Cancelled Microcytosis Cancelled Macrocytosis Cancelled Spherocytes Cancelled Sickle Cells Cancelled Target Cells Cancelled Tear Drop Cells Cancelled Ovalocytes Cancelled Stomatocytes Cancelled [place] Bodies Cancelled Moody Cells Cancelled Bite Cells Cancelled Crenated Cell Cancelled Acanthocytes (Spur) Cancelled Rouleaux Cancelled Schistocytes Cancelled PT 11.8 INR 0.9 APTT 22.2 L Sodium Potassium Chloride Carbon Dioxide Anion Gap BUN Creatinine Estim Creat Clear Calc Est GFR (MDRD) Af Amer Est GFR (MDRD) Non-Af BUN/Creatinine Ratio Glucose Lactic Acid Calcium Magnesium Total Bilirubin AST ALT Alkaline Phosphatase Troponin I High Sens Total Protein Albumin Globulin Albumin/Globulin Ratio Urine Color Yellow Urine Clarity Clear Urine pH 6.0 Ur Specific [place] 1.025 Urine Protein 100 H Urine Glucose (UA) 1000 H Urine Ketones Negative Urine Occult Blood 50 H Urine Nitrite Negative Urine Bilirubin Negative Urine Urobilinogen Normal Ur Leukocyte Esterase Negative Urine RBC 0-5 SEEN Urine WBC 0 SEEN Ur Squamous Epith Cells 0 SEEN Urine Bacteria 0 SEEN Hyaline Casts 0-5 SEEN Urine Mucus 0 SEEN 08/16/21 08/16/21 22:30 22:30 WBC Corrected WBC RBC Hgb Hct MCV MCH MCHC RDW Std Deviation RDW Coeff of Imelda Plt Count MPV Immature Gran % (Auto) Neut % (Auto) Lymph % (Auto) Citrus % (Auto) Eos % (Auto) Baso % (Auto) Absolute Neuts (auto) Absolute Lymphs (auto) Total Counted Neutrophils % (Manual) Band Neutrophils % Lymphocytes % (Manual) Monocytes % (Manual) Eosinophils % (Manual) Basophils % (Manual) Metamyelocytes % Myelocytes % Promyelocytes % Blast Cells % Plasma Cell % (Manual) Other Cells % Nucleated RBC % Nucleated RBCs/100 WBC Differential Comment Diff Path Review Hypersegmented Neuts Atypical Lymphocytes Reactive Lymphocytes Smudge Cells Toxic Granulation Toxic Vacuolation Dohle Bodies Rylee Rods Platelet Estimate Plt Morphology Comment RBC Morphology Polychromasia Hypochromasia Poikilocytosis Basophilic Stippling Anisocytosis Microcytosis Macrocytosis Spherocytes Sickle Cells Target Cells Tear Drop Cells Ovalocytes Stomatocytes [place] Bodies [place] Cells Bite Cells Crenated Cell Acanthocytes (Spur) Rouleaux Schistocytes PT INR APTT Sodium 139 Potassium 4.1 Chloride 94 L Carbon Dioxide 39.0 H Anion Gap 6 BUN 28 H Creatinine 1.34 H Estim Creat Clear Calc 65.95 Est GFR (MDRD) Af Amer 70 Est GFR (MDRD) Non-Af 58 L BUN/Creatinine Ratio 20.9 H Glucose 251 H Lactic Acid 1.6 Calcium 7.8 L Magnesium 2.0 Total Bilirubin 0.40 AST 50 H ALT 72 H Alkaline Phosphatase 105 Troponin I High Sens 131 H* Total Protein 6.2 L Albumin 3.1 L Globulin 3.1 Albumin/Globulin Ratio 1.0 Urine Color Urine Clarity Urine pH Ur Specific [place] Urine Protein Urine Glucose (UA) Urine Ketones Urine Occult Blood Urine Nitrite Urine Bilirubin Urine Urobilinogen Ur Leukocyte Esterase Urine RBC Urine WBC Ur Squamous Epith Cells Urine Bacteria Hyaline Casts Urine Mucus Radiography Chest X-Ray - ED: 1 View, Read by ED Physician, No Acute Disease, Chronic Changes and - (good ETT and NGT placement) Diagnostic Testing: Clinical Impression(s) from Imaging Studies Chest X-Ray 08/16/21 21:06 IMPRESSION: Endotracheal and esophagogastric tubes, as above. Electronically Signed: Joe Mora MD ([place]) at 21:48 EDT , KUB X-Ray 08/16/21 21:33 IMPRESSION: Esophagogastric tube extends to the stomach. Electronically Signed: Joe Mora MD (Brooks) at 21:47 EDT , 2-view KUB on my interpretation good NG tube placement no free air. Rhythm Strip Rhythm Strip: Sinus Tach Rate: 120 Ectopy: None EKG Initial EKG: Attestation: I personally reviewed and interpreted this EKG as follows: Interpretation: No Acute Injury Pattern, Sinus Tachycardia and LAFB Procedures Intubations Intubation Method: orotracheal (MAC 4 glide scope used with 8-0F ETT, visualized passing through the cords gently after suctioning secretions and small pieces of possible food, secured at 24 cm at the lip, equal breath sounds present bilaterally, with good chest rise.) Intubation Verification: Positive color change Intubation Complications: no complications and apparent aspiration (Possibly, small bits of food in the posterior oropharynx with liquid/secretions) Other Procedures Procedure(s): Central line placement: Sterile prep and full body drape right subclavian vein site, prepped with chlorhexidine, locally anesthetized 3 cc plain 1% lidocaine, dark nonpulsatile blood found with finder needle, 16 cm triple-lumen catheter placed via Seldinger technique, all 3 ports johny back dark red nonpulsatile blood and flushed easily, sutured in place with chlorhexidine disc against the skin, portable chest x-ray shows that the catheter went up into the internal jugular instead of down into the SVC/atrium. Therefore, using a sterile guidewire and set up, I attempted to reposition the catheter using ultrasound guidance, however it came out of the vein and so a new set up was performed using the exact same technique as above, at the same site, but adjusting the actual insertion site of the skin slightly. Portable chest x-ray shows good placement. All 3 ports johny back dark red blood nonpulsatile and flushed easily, catheter secured for use. Critical Care Time Critical Care Time: Yes Critical care time (excluding procedures): 30-74 minutes (45), Including time spent:, Discussing w/Patient &/or Family/Control And Recovery Special Tactics, Discussing w/Consultants, Arranging Admission or Transfer, Performing Direct Patient Care at Bedside and - (Excluding procedures) Discharge Plan Dx/Rx/DC Orders Clinical Impression: Acute on chronic respiratory failure with hypoxia and hypercapnia, Acute exacerbation of chronic obstructive pulmonary disease, Lung cancer, Aspiration into respiratory tract Disposition Disposition: [facility]
[2021-08-16 21:15] VITALS: PULSE 130; RESP 27; TEMP 36.1; O2SAT 100
[2021-08-16 21:30] LABS: Bacteria 0 SEEN /hpf (None Seen); Mucous, Urine 0 SEEN /hpf (<or=2+); Squamous Epithelial Cells - UA 0 SEEN /hpf (0-5); White Blood Cells 0 SEEN /hpf (0-5)
[2021-08-16 21:32] LABS: Color, Urine Yellow (Yellow); Glucose, Dipstick 1000 mg/dl (Normal); Ketone-Dipstick Negative (Negative); Leukocyte Esterase-Dipstick Negative /ul (Negative); Nitrite-Dipstick Negative (Negative); Occult Blood-Urine 50 /ul (Negative); Protein-Dipstick 100 mg/dl (Negative); Specific Gravity, Urine 1.025 (1.002-1.030); Urine Bilirubin Dipstick Negative (Negative); Urine Clarity Clear (Clear); Urine Urobilinogen Normal (Normal)
--- NOTE | 2021-08-16 21:33 | RAD_ITS ---
STUDY: X-RAY - ABDOMEN/PELVIS REASON FOR EXAM: Male, 56 years old. NG PLACEMENT TECHNIQUE: Single AP view of the abdomen / pelvis. COMPARISON: None. FINDINGS: Esophagogastric tube extends to the stomach. Nonspecific bowel gas pattern. There is no demonstrated free abdominal air. The visualized liver, spleen and kidneys are grossly normal in size and morphology. Normal soft tissue structures. Normal visualized osseous structures. RAD/Abdomen Single View (Portable) IMPRESSION: Esophagogastric tube extends to the stomach. Electronically Signed: Joe Mora MD ([place]) at 21:47 EDT Reading Location ID and State: [facility] / [place] , Service support ,
[2021-08-16] MEDS: Propofol 200 MG/20 ML Vial 60 MG IV BOLUS (21:37)
[2021-08-16] MEDS: Propofol 10MG/Ml 1,000 MG/100 ML Bottle 5.9 MG CONT INF (21:41)
[2021-08-16 21:42] LABS: Hyaline Cast 0-5 SEEN /lpf (0-5); Red Blood Cells-Urine 0-5 SEEN /hpf (0-5)
[2021-08-16] MEDS: 0.9% Normal Saline 1,000 ML 150 ML IV (21:45)
--- NOTE | 2021-08-16 22:02 | CM.ED ---
SW Note Referral Source: Case Find Referral Reason: Patient having respirator distress SW met with patient's , Deena. SW provided updates and provided emotional support. SW remains available as needed. Archie HERNANDEZ
[2021-08-16 22:09] VITALS: BP 153/102; PULSE 137; RESP 35; TEMP 36.2; O2SAT 92
[2021-08-16] MEDS: fentaNYL 100 MCG/2 ML Ampul IV (22:13)
[2021-08-16] MEDS: Terbutaline 1 MG/ML Vial 0.25 MG SC (22:13)
[2021-08-16] MEDS: Ipratropium/Albuterol Sulfate 3 ML AMPUL.NEB INHALATION (22:34)
--- NOTE | 2021-08-16 22:50 | RAD_ITS ---
We are attempting to reach an attending provider to discuss findings. An addendum with communication details will be sent when the communication is complete. STUDY: X-RAY CHEST REASON FOR EXAM: Male, 56 years old. line placement TECHNIQUE: AP portable. 10:46 PM. COMPARISON: 08/16/2021 at 9:16 PM.. FINDINGS: LINES/DEVICES: There is a central venous catheter on the right at the periphery of the film coursing from right subclavian cephalad at the base of the neck on the right region of the right jugular vein, tip above the level of the film not included. Likely a subclavian line coursing cephalad, although IJ line coursing laterally could have a similar appearance. Tip of the endotracheal tube 3.5 cm above the leora. NG tube tip below the diaphragm. LUNGS: No consolidation. No pneumothorax. MEDIASTINUM: Unremarkable. CARDIAC SILHOUETTE: Not enlarged. BONES AND SOFT TISSUES: No acute abnormalities. Surgical hardware in the cervical spine. RAD/Chest 1 View (Portable) IMPRESSION: Malposition of the central line as detailed above. Does not extend into the chest. No pneumothorax. ET tube satisfactory position. Electronically Signed: Lyndsey Hartley MD at 23:25 EDT ,
--- NOTE | 2021-08-16 22:52 | HP.PCM.HOS_ITS ---
HPI - General General Date of Admission: 08/16/21 HPI Narrative SUMEET ELLIOTT, is a 56 M who presents to the hospital with respiratory failure felt to be both hypercapnic and hypoxic secondary to his history of COPD. On my evaluation he was already intubated and there is no family in the room. All the history was obtained from chart review and discussion with the ED physician. Per reports he is a full code and currently in treatment for lung cancer. He does have a history of COPD and had been intubated in the beginning of June secondary to an exacerbation. [facility] Medical History COPD (chronic obstructive pulmonary disease) Emphysema lung Lung cancer Home Medications furosemide 60 mg PO BID 06/27/21 [History Last Taken Unknown] gabapentin 300 mg PO QHS 06/27/21 [History Last Taken Unknown] hydromorphone 2 mg PO Q8 PRN 06/27/21 [History Last Taken Unknown] ipratropium-albuterol 3 ml INHALATION Q4H PRN PRN 06/27/21 [History Last Taken Unknown] levothyroxine 175 mcg PO DAILY 06/27/21 [History Last Taken Unknown] methadone 10 mg PO BID 06/27/21 [History Last Taken Unknown] methylphenidate HCl 5 mg PO BID 06/27/21 [History Last Taken Unknown] carbamide peroxide [Ear Drops (carbamide peroxide)] 5 drp LEFT EAR DAILY 4 Days #15 ml 06/29/21 [Rx Last Taken Unknown] levofloxacin 750 mg PO DAILY #2 tab 06/29/21 [Rx Last Taken Unknown] metoprolol succinate 50 mg PO DAILY #30 tab 06/29/21 [Rx Last Taken Unknown] prednisone 40 mg PO DAILY #60 tab 06/29/21 [Rx Last Taken Unknown] Allergy/AdvReac Type Severity Reaction Status Date / Time No Known Allergies Allergy Verified 06/27/21 10:46 Family History unable to obtain unable to obtain Surgical History unable to obtain unable to obtain Social History Smoking Status: Current every day smoker tobacco type: cigarettes and smokeless tobacco ROS Review of Systems ROS Unobtainable: due to endotracheal tube Vital Signs Vital Signs Vital Signs: 08/16/21 20:59 08/16/21 21:15 08/16/21 21:21 Temperature 97.6 F L 96.9 F L Temperature Source Temporal Temporal Pulse Rate 122 H 130 H Respiratory Rate 12 27 H Blood Pressure 168/129 H Blood Pressure Mean 142 Pulse Ox 99 100 Oxygen Delivery Method Mechanical Ventilator Mechanical Ventilator Fraction of Inspired Oxygen (FIO2) 100 08/16/21 22:09 Temperature 97.2 F L Temperature Source Temporal Pulse Rate 137 H Respiratory Rate 35 H Blood Pressure 153/102 H Blood Pressure Mean 119 Pulse Ox 92 Oxygen Delivery Method Mechanical Ventilator Fraction of Inspired Oxygen (FIO2) 92 Weight Weight: 215 lb 6.266 oz Body Mass Index (BMI) 29.2 Physical Exam Const General Appearance: intubated and patient mechanically ventilated HEENT normocephalic Mouth: dry mucous membranes Eyes PERRL and conjunctivae normal Neck supple and no JVD Resp normal respiratory effort, no retractions and no use of accessory muscles Auscultation: wheezes and diminished lung sounds; Negative for crackles, rales or rhonchi Cardio regular rhythm, S1 normal heart sound, S2 normal heart sound and no murmurs Rate: tachycardic GI soft to palpation and non-distended; Negative for hepatosplenomegaly Extremity no clubbing, cyanosis or edema Skin no rashes or lesions noted Neuro Sensorium / Orientation: sedated on vent Psych Appearance: intubated Results Lab / Micro Data Result Diagrams: 08/16/21 23:20 08/16/21 22:30 Labs: Laboratory Results - last 24 hr 08/16/21 21:20: Urine Color Yellow, Urine Clarity Clear, Urine pH 6.0, Ur Specific [place] 1.025, Urine Protein 100 H, Urine Glucose (UA) 1000 H, Urine Ketones Negative, Urine Occult Blood 50 H, Urine Nitrite Negative, Urine Bilirubin Negative, Urine Urobilinogen Normal, Ur Leukocyte Esterase Negative, Urine RBC 0-5 SEEN, Urine WBC 0 SEEN, Ur Squamous Epith Cells 0 SEEN, Urine Bacteria 0 SEEN, Hyaline Casts 0-5 SEEN, Urine Mucus 0 SEEN Rhythm Strip Rhythm Strip: Sinus Tach Rate: 120 Ectopy: None Radiology Impression Chest X-Ray 08/16/21 21:06 IMPRESSION: Endotracheal and esophagogastric tubes, as above. Electronically Signed: Joe Mora MD (Brooks) at 21:48 EDT Reading Location ID and State: [facility] / [place] , Service support , KUB X-Ray 08/16/21 21:33 IMPRESSION: Esophagogastric tube extends to the stomach. Electronically Signed: Joe Mora MD (Brooks) at 21:47 EDT , Assessment & Plan Assessment/Plan (1) Acute on chronic respiratory failure with hypoxia and hypercapnia: (2) Acute exacerbation of chronic obstructive pulmonary disease: PLAN: 1. Acute on chronic respiratory failure with hypoxia and hypercapnia secondary to COPD exacerbation and possible aspiration/CKD 3a ? When the ED was intubating he noticed food in the back of the throat and there was some concern of aspiration so we will start him on Unasyn ? Admit to the ICU, continue with Solu-Medrol and inhalers ? 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 Lung cancer ? Unsure as to what stage or kind he does not have any records of this hospital prior to 06/27/2021 3. We will need to contact pharmacy or his family in the morning to clarify his list of medications DVT: Lovenox Charges/Coding Visit Charges Inpatient E&M: 40974 Init Hosp L3
[2021-08-16 23:01] VITALS: BP 143/96; PULSE 133; RESP 25; TEMP 36.2
[2021-08-16 23:10] LABS: Lactic Acid 1.6 mmol/L (0.4-1.9)
[2021-08-16 23:15] LABS: Allen Test Positive; Base Excess 12 mmol/L (-2 to +2); Bicarbonate 38.1 mmol/L (22-26); Blood Gas Specimen Type ART; FI02 45; Mode AC; PEEP 5; PO2 83 mmHG (75-100); RR 14; SITE R Radial; SO2 95 % (95-99); Total Carbon Dioxide 40 mmol/L; Vt 450; pCO2 71.1 mmHg (35-45); pH 7.34 (7.35-7.45)
[2021-08-16 23:17] LABS: International Normalized Ratio 0.9; Prothrombin Time (Protime)PT. 11.8 SECONDS (11.7-14.9)
[2021-08-16 23:18] LABS: Partial Thromboplast Time 22.2 Seconds (24.1-36.2)
[2021-08-16 23:26] LABS: Absolute Lymphocyte Count 0.21 X10^3/uL (0.83-4.51); Absolute Neutrophil Count 17.6 X10^3/uL (2.0-7.7); Basophil# 0.04 X10^3/uL; Basophil% 0.2 % (0-1); Hematocrit 39.9 % (40-54); Hemoglobin 12.2 g/dL (13.0-16.5); Lymphocyte # 0.21 X10^3/ul (0.83-4.51); Lymphocyte % 1.1 % (19-41); Mean Corp Hgb Conc 30.6 g/dL (32-36); Mean Corpuscular Hgb 30.1 pg (27.0-32.0); Mean Corpuscular Volume 98.5 fL (80-94); Mean Platelet Vol. 10.2 fl (6.2-12.0); Monocyte# 0.47 X10^3/uL; Monocyte% 2.5 % (0-10); NRBC Flagged by Analyzer 0.2 % (0-5); Neutrophil # 17.57 X10^3/uL (2.7-7.7); Neutrophil % 94.4 % (47-70); POSITIVE DIFFERENTIAL YES; Platelet Count 182 K/mm3 (150-450); RBC Distribution Width CV 14.5 % (11.6-14.6); RBC Distribution Width SD 52.1 fl (35.1-43.9); Red Blood Count 4.05 M/mm3 (4.6-6.2); White Blood Count 18.6 K/mm3 (4.4-11.0)
[2021-08-16 23:28] LABS: Differential Indicated SCAN CRITERIA MET
[2021-08-16 23:28] LABS: AST(SGOT) 50 U/L (15-37); Alanine Aminotransfer ALT/SGPT 72 U/L (16-61); Albumin, Serum 3.1 g/dL (3.2-5.0); Alkaline Phosphatase 105 U/L (45-117); Anion Gap 6 (5-15); BUN 28 mg/dL (7-18); BUN/Creat Ratio 20.9 RATIO (10-20); Calcium,Total 7.8 mg/dL (8.5-10.1); Chloride 94 mmol/L (98-107); Creatinine, Serum 1.34 mg/dL (0.70-1.30); EST Glomerular Filtration Rate 58 mL/min (>60); Est Glom Filt Rate - Afr Amer 70 mL/min (>60); Estimated Creatinine Clearance 65.95 ml/min; Globulin 3.1 g/dL (2.2-4.2); Glucose 251 mg/dL (74-106); Potassium 4.1 mmol/L (3.5-5.1); Protein, Total 6.2 g/dL (6.4-8.2); Sodium Level 139 mmol/L (136-145); Troponin-I HS 131 pg/mL (3.0-78.0)
--- NOTE | 2021-08-16 23:28 | ED.RN ---
(DAUGHTER) AND DAUGHTER (ABELINO) AT BEDSIDE TO REPORT THAT PATIENT HS BEEN HALLUCINATING FOR PAST WEEK AND HASN'T BEEN 'GETTING ENOUGH OXYGEN' THEY STATE THAT PT REFUSES TO WEAR BIPAP BUT HE DOES WEAR 4L AT HOME.
--- NOTE | 2021-08-16 23:31 | ED.RN ---
19:57 EMS NOTES ALTERED LOC. EMS STATES MANUAL BAGGING 'PT BREATHING BUT NOT MAINTAINING PULSE OX' 2 MG NARCAN NASAL, 2 NARCAN IV, 125 SOLUMEDROL IV GIVEN IN ROUTE
[2021-08-16 23:42] LABS: Differential Comment SCANNED
[2021-08-16 23:50] VITALS: PULSE 122; RESP 16; RESP 22; O2SAT 96
[2021-08-17] VITALS (38 sets, daily range): BP systolic 87–133; BP diastolic 62–108; PULSE 82–115; RESP 14–28; TEMP 35.9–37.7; O2SAT 88–100; BMI 29.0
--- NOTE | 2021-08-17 00:45 | RAD_ITS ---
STUDY: X-RAY CHEST REASON FOR EXAM: Male, 56 years old. LINE PLACEMENT TECHNIQUE: AP portable. 12:39 AM. COMPARISON: 08/16/2021 at 10:46 PM. FINDINGS: LINES/DEVICES: Central venous catheter from right subclavian approach with tip in the region of the SVC/right atrial junction, has been repositioned or replaced compared to the earlier study. Tip of the endotracheal tube is 3 cm above the leora, NG tube tip below the diaphragm. LUNGS: No consolidation. No pneumothorax. MEDIASTINUM: Unremarkable. CARDIAC SILHOUETTE: Not enlarged. BONES AND SOFT TISSUES: Surgical hardware in the cervical spine. RAD/CXR for Line Placement IMPRESSION: Central line as described. No pneumothorax. Clear lungs. Electronically Signed: Lyndsey Hartley MD at 1:05 EDT ,
[2021-08-17] MEDS: CHLORHEXIDINE GLUC 2% CLOTH 1 EACH TOWELETTE TOPICAL (02:00)
[2021-08-17] MEDS: 0.9% Saline Lock 10 ML Syringe IV ×6 (02:10→12:17)
[2021-08-17] MEDS: Propofol 10MG/Ml 1,000 MG/100 ML Bottle 20.5 MG CONT INF (02:10)
[2021-08-17] MEDS: 0.9% Normal Saline 1,000 ML 75 ML IV (02:16)
[2021-08-17] MEDS: Chlorhexidine 15 ML PO ×3 (02:30→21:32)
[2021-08-17] MEDS: TITRATION PARAMETER CHANGE 1 EACH IV (02:36)
[2021-08-17 05:14] LABS: Absolute Lymphocyte Count 0.19 X10^3/uL (0.83-4.51); Absolute Neutrophil Count 10.1 X10^3/uL (2.0-7.7); Basophil# 0.01 X10^3/uL; Basophil% 0.1 % (0-1); Hematocrit 34.1 % (40-54); Hemoglobin 10.8 g/dL (13.0-16.5); Lymphocyte # 0.19 X10^3/ul (0.83-4.51); Lymphocyte % 1.8 % (19-41); Mean Corp Hgb Conc 31.7 g/dL (32-36); Mean Corpuscular Hgb 30.4 pg (27.0-32.0); Mean Corpuscular Volume 96.1 fL (80-94); Mean Platelet Vol. 10.3 fl (6.2-12.0); Monocyte% 2.8 % (0-10); NRBC Flagged by Analyzer 0.2 % (0-5); Neutrophil # 10.08 X10^3/uL (2.7-7.7); Neutrophil % 94.2 % (47-70); POSITIVE DIFFERENTIAL YES; Platelet Count 157 K/mm3 (150-450); RBC Distribution Width CV 14.6 % (11.6-14.6); RBC Distribution Width SD 51.1 fl (35.1-43.9); Red Blood Count 3.55 M/mm3 (4.6-6.2); White Blood Count 10.7 K/mm3 (4.4-11.0)
[2021-08-17 05:21] LABS: Differential Indicated SCAN CRITERIA MET
[2021-08-17 05:29] LABS: Anion Gap 6 (5-15); BUN 27 mg/dL (7-18); BUN/Creat Ratio 22.5 RATIO (10-20); Calcium,Total 8.1 mg/dL (8.5-10.1); Chloride 91 mmol/L (98-107); EST Glomerular Filtration Rate 66 mL/min (>60); Est Glom Filt Rate - Afr Amer 80 mL/min (>60); Estimated Creatinine Clearance 64.92 ml/min; Glucose 287 mg/dL (74-106); Potassium 3.9 mmol/L (3.5-5.1); Sodium Level 136 mmol/L (136-145)
--- NOTE | 2021-08-17 05:37 | CON.PCM.CC_ITS ---
Assessment & Plan Assessment/Plan (1) Acute on chronic respiratory failure with hypoxia and hypercapnia: PLAN: RECOMMENDATIONS: 1. Continue assist control mode mechanical ventilation. Wean FiO2/PEEP for saturations greater than 90%. 2. Continue empiric antimicrobials. 3. Continue scheduled bronchodilators and IV steroids. 4. Continue current sedation regimen. 5. Continue appropriate DVT and GI prophylaxis. 6. Obtain nutrition consultation for initiation of tube feeds. IMPRESSIONS: 1. Acute on chronic combined respiratory failure The patient has a reported history of COPD of unclear severity along with chronic hypoxemic respiratory failure. His compliance with outpatient prescribed medical therapy is questionable. No definitive pulmonary infectious etiology has been identified. Therefore, it is certainly plausible that his noncompliance led to his exacerbation. Alternatively, there is also the possibility that the patient may have aspirated in the setting of being found encephalopathic, which is likely secondary to chronic opiate utilization and limited respiratory reserve. The patient will be maintained on assist control mode mechanical ventilation. FiO2 and PEEP will be weaned as tolerated. The patient will be continued on Unasyn to cover for possible aspiration along with scheduled bronchodilators and IV steroids. Plan to perform paired spontaneous awakening and breathing trials. 2. Encephalopathy Likely secondary to CO2 retention in the setting of opiate medication u tilization. The patient's utilization of home opiate medications will need to be reviewed after he has been liberated from invasive mechanical ventilatory support. 3. Chronic kidney disease/history of lung cancer/hypothyroidism/chronic pain syndrome Complicates care, management, recovery and prognosis. The patient's lung cancer history is a bit unclear. It is not known what type or what stage his lung cancer was. This will need to be clarified further with the patient and his family. TIME: 35 minutes of critical care time, independent of procedures, was spent addressing the patient's acute on chronic combined respiratory failure, enc ephalopathy, review of all data and collaboration with the care team. HPI Consult Data Date of Consult: 08/17/21 HPI Narrative Reason for Consultation: Acute on chronic respiratory failure HPI Narrative: The patient is a 56-year-old male, with a history as outlined below, who presented to the emergency department on August 16 via EMS with lethargy and dyspnea. The patient's medical history includes lung cancer, emphysema and chronic hypoxemic respiratory failure with a baseline requirement of 4 L/min. He also reportedly has a history of sleep apnea with poor outpatient compliance. The patient was last admitted to the hospital in July 15 under similar circumstances with concern that the patient's baseline narcotic regimen coupled with his outpatient noncompliance with prescribed medical therapy led to intubation and invasive mechanical ventilatory support. On presentation to the emergency department, the patient was noted to be afebrile and hemodynamically stable. He was, nevertheless, tachycardic and tachypneic. Initial laboratory evaluation revealed an elevated white blood cell count to 18,000. Chemistry profile was notable for a bicarbonate of 39 and creatinine of 1.34. Urinalysis was unremarkable. Due to the patient's impending respiratory failure on arrival, he was emergently intubated in the emergency department. No significant infiltrate or consolidation was noted on chest imaging. Due to development of hypotension, a central venous catheter was also placed. The patient was ultimately started on antimicrobials, bronchodilators and IV steroids. He was admitted to the medical intensive care unit for further management. [facility] Medical History COPD (chronic obstructive pulmonary disease) Emphysema lung Lung cancer Home Medications furosemide 60 mg PO BID 06/27/21 [History Last Taken Unknown] gabapentin 300 mg PO QHS 06/27/21 [History Last Taken Unknown] hydromorphone 2 mg PO Q8 PRN 06/27/21 [History Last Taken Unknown] ipratropium-albuterol 3 ml INHALATION Q4H PRN PRN 06/27/21 [History Last Taken Unknown] levothyroxine 175 mcg PO DAILY 06/27/21 [History Last Taken Unknown] methadone 10 mg PO BID 06/27/21 [History Last Taken Unknown] methylphenidate HCl 5 mg PO BID 06/27/21 [History Last Taken Unknown] carbamide peroxide [Ear Drops (carbamide peroxide)] 5 drp LEFT EAR DAILY 4 Days #15 ml 06/29/21 [Rx Last Taken Unknown] levofloxacin 750 mg PO DAILY #2 tab 06/29/21 [Rx Last Taken Unknown] metoprolol succinate 50 mg PO DAILY #30 tab 06/29/21 [Rx Last Taken Unknown] prednisone 40 mg PO DAILY #60 tab 06/29/21 [Rx Last Taken Unknown] Allergy/AdvReac Type Severity Reaction Status Date / Time No Known Allergies Allergy Verified 06/27/21 10:46 Family History unable to obtain Surgical History unable to obtain Social History Smoking Status: Current every day smoker tobacco type: cigarettes and smokeless tobacco ROS Review of Systems ROS Unobtainable: due to endotracheal tube Physical Exam Const no apparent distress General Appearance: intubated and patient mechanically ventilated HEENT normocephalic and head/scalp atraumatic Mouth: endotracheal tube in place and OG tube in place Eyes PERRL and conjunctivae normal Neck supple General: trachea midline and CVC in place Chest inspection of chest normal Resp Resp Narrative: Coarse bilateral wheezes noted. Auscultation: diminished lung sounds Cardio regular rate and regular rhythm GI normal to inspection, nondistended, normoactive bowel sounds Extremity no clubbing, cyanosis or edema Skin no rashes or lesions noted Neuro Sensorium / Orientation: sedated on vent Lab / Micro Data Result Diagrams: 08/17/21 05:05 08/17/21 05:05 Labs: Laboratory Results - last 24 hr 08/16/21 21:20: Urine Color Yellow, Urine Clarity Clear, Urine pH 6.0, Ur Specific [place] 1.025, Urine Protein 100 H, Urine Glucose (UA) 1000 H, Urine Ketones Negative, Urine Occult Blood 50 H, Urine Nitrite Negative, Urine Bilirubin Negative, Urine Urobilinogen Normal, Ur Leukocyte Esterase Negative, Urine RBC 0-5 SEEN, Urine WBC 0 SEEN, Ur Squamous Epith Cells 0 SEEN, Urine Bacteria 0 SEEN, Hyaline Casts 0-5 SEEN, Urine Mucus 0 SEEN 08/16/21 22:30: WBC Cancelled, Corrected WBC Cancelled, RBC Cancelled, Hgb Cancelled, Hct Cancelled, MCV Cancelled, MCH Cancelled, MCHC Cancelled, RDW Std Deviation Cancelled, RDW Coeff of Imelda Cancelled, Plt Count Cancelled, MPV Cancelled, Immature Gran % (Auto) Cancelled, Neut % (Auto) Cancelled, Lymph % (Auto) Cancelled, [place] % (Auto) Cancelled, Eos % (Auto) Cancelled, Baso % (Auto) Cancelled, Absolute Neuts (auto) Cancelled, Absolute Lymphs (auto) Cancelled, Total Counted Cancelled, Neutrophils % (Manual) Cancelled, Band Neutrophils % Cancelled, Lymphocytes % (Manual) Cancelled, Monocytes % (Manual) Cancelled, Eosinophils % (Manual) Cancelled, Basophils % (Manual) Cancelled, Metamyelocytes % Cancelled, Myelocytes % Cancelled, Promyelocytes % Cancelled, Blast Cells % Cancelled, Plasma Cell % (Manual) Cancelled, Other Cells % Cancelled, Nucleated RBC % Cancelled, Nucleated RBCs/100 WBC Cancelled, Differential Comment Cancelled, Diff Path Review Cancelled, Hypersegmented Neuts Cancelled, Atypical Lymphocytes Cancelled, Reactive Lymphocytes Cancelled, Smudge Cells Cancelled, Toxic Granulation Cancelled, Toxic Vacuolation Cancelled, Dohle Bodies Cancelled, Rylee Rods Cancelled, Platelet Estimate Cancelled, Plt Morphology Comment Cancelled, RBC Morphology Cancelled, Polychromasia Cancelled, Hypochromasia Cancelled, Poikilocytosis Cancelled, Basophilic Stippling Cancelle d, Anisocytosis Cancelled, Microcytosis Cancelled, Macrocytosis Cancelled, Spherocytes Cancelled, Sickle Cells Cancelled, Target Cells Cancelled, Tear Drop Cells Cancelled, Ovalocytes Cancelled, Stomatocytes Cancelled, Reyes-Pandora Bodies Cancelled, [place] Cells Cancelled, Bite Cells Cancelled, Crenated Cell Cancelled, Acanthocytes (Spur) Cancelled, Rouleaux Cancelled, Schistocytes Cancelled 08/16/21 22:30: PT 11.8, INR 0.9, APTT 22.2 L 08/16/21 22:30: Sodium 139, Potassium 4.1, Chloride 94 L, Carbon Dioxide 39.0 H, Anion Gap 6, BUN 28 H, Creatinine 1.34 H, Estim Creat Clear Calc 65.95, Est GFR (MDRD) Af Amer 70, Est GFR (MDRD) Non-Af 58 L, BUN/Creatinine Ratio 20.9 H, Glucose 251 H, Calcium 7.8 L, Magnesium 2.0, Total Bilirubin 0.40, AST 50 H, ALT 72 H, Alkaline Phosphatase 105, Troponin I High Sens 131 H*, Total Protein 6.2 L , Albumin 3.1 L, Globulin 3.1, Albumin/Globulin Ratio 1.0 08/16/21 22:30: Lactic Acid 1.6 08/16/21 23:20: B-Natriuretic Peptide 229.0 H 08/16/21 23:20: WBC 18.6 H, RBC 4.05 L, Hgb 12.2 L, Hct 39.9 L, MCV 98.5 H, MCH 30.1, MCHC 30.6 L, RDW Std Deviation 52.1 H, RDW Coeff of Imelda 14.5, Plt Count 182, MPV 10.2, Immature Gran % (Auto) 1.800 H, Neut % (Auto) 94.4 H, Lymph % (Auto) 1.1 L, [place] % (Auto) 2.5, Eos % (Auto) 0.0, Baso % (Auto) 0.2, Absolute Neuts (auto) 17.6 H, Absolute Lymphs (auto) 0.21 L, Nucleated RBC % 0.2, Diff erential Comment SCANNED 08/17/21 05:05: WBC 10.7, RBC 3.55 L, Hgb 10.8 L, Hct 34.1 L, MCV 96.1 H, MCH 30.4, MCHC 31.7 L, RDW Std Deviation 51.1 H, RDW Coeff of Imelda 14.6, Plt Count 157, MPV 10.3, Immature Gran % (Auto) 1.100 H, Neut % (Auto) 94.2 H, Lymph % (Auto) 1.8 L, [place] % (Auto) 2.8, Eos % (Auto) 0.0, Baso % (Auto) 0.1, Absolute Neuts (auto) 10.1 H, Absolute Lymphs (auto) 0.19 L, Nucleated RBC % 0.2 08/17/21 05:05: Sodium 136, Potassium 3.9, Chloride 91 L, Carbon Dioxide 39.0 H, Anion Gap 6, BUN 27 H, Creatinine 1.20, Estim Creat Clear Calc 64.92, Est GFR (MDRD) Af Amer 80, Est GFR (MDRD) Non-Af 66, BUN/Creatinine Ratio 22.5 H, Glucose 287 H, Calcium 8.1 L ABG Data ABG results: ABG 08/16/21 23:08 Specimen Type ART Sample Site R Radial pH 7.34 L Bicarbonate Actual 38.1 H Total CO2 40 Base Excess 12 H O2 Saturation 95 O2 % 45 ABG pCO2 71.1 H* ABG pO2 83 Ty Test Positive Respiration Rate 14 Vent Mode AC Tidal Volume 450 POC PEEP 5 Crit Call To/Read Back Yes Blood Gas Notified Whom barroni Rhythm Strip Rhythm Strip: Sinus Tach Rate: 120 Ectopy: None Radiology Impression Chest X-Ray 08/16/21 21:06 IMPRESSION: Endotracheal and esophagogastric tubes, as above. Electronically Signed: Joe Mora MD (Brooks) at 21:48 EDT , KUB X-Ray 08/16/21 21:33 IMPRESSION: Esophagogastric tube extends to the stomach. Electronically Signed: Joe Mora MD (Brooks) at 21:47 EDT , Chest X-Ray 08/16/21 22:50 IMPRESSION: Malposition of the central line as detailed above. Does not extend into the chest. No pneumothorax. ET tube satisfactory position. Electronically Signed: Lyndsey Hartley MD at 23:25 EDT , ADDENDUM: 08/16/21 [id number] IMPRESSION: Malposition of the central line as detailed above. Does not extend into the chest. No pneumothorax. ET tube satisfactory position. N.B. : The above Results were Read Back by Lyndsey Hartley MD to Dr. Luis Meyer MD, and understanding confirmed on 08/16/2021 23:28:11 (ET). Electronically Signed: Lyndsey Hartley MD at 23:25 EDT , Chest X-Ray 08/17/21 00:45 IMPRESSION: Central line as described. No pneumothorax. Clear lungs. Electronically Signed: Lyndsey Hartley MD at 1:05 EDT , Charges/Coding Procedures Hospitalists Procedures: [id number] [facility] Hr
[2021-08-17 05:44] LABS: Differential Comment SCANNED
[2021-08-17] MEDS: Ipratropium/Albuterol Sulfate 3 ML AMPUL.NEB INHALATION ×3 (06:32→19:14)
[2021-08-17] MEDS: Propofol 10MG/Ml 1,000 MG/100 ML Bottle 18.2 MG CONT INF (06:53)
[2021-08-17 08:15] LABS: Magnesium 2.3 mg/dL (1.6-2.6); Phosphorus 2.1 mg/dL (2.5-4.9)
[2021-08-17] MEDS: Metoprolol Tartrate 25 MG Tablet GT (10:25)
[2021-08-17] MEDS: Famotidine 20 MG Tablet PO ×2 (10:27→21:31)
[2021-08-17] MEDS: Enoxaparin 40 MG/0.4 ML Syringe SC (10:27)
[2021-08-17 11:23] LABS: Troponin-I HS 346 pg/mL (3.0-78.0)
[2021-08-17] MEDS: Vital AF 1.2 Cal Liquid 1,000 ML 20 ML GT (12:11)
[2021-08-17] MEDS: Propofol 10MG/Ml 1,000 MG/100 ML Bottle 20.8 MG CONT INF ×3 (12:34→20:50)
[2021-08-17 16:43] LABS: Troponin-I HS 296 pg/mL (3.0-78.0)
--- NOTE | 2021-08-17 17:27 | CON.PCM.CA_ITS ---
Assessment & Plan Assessment/Plan (1) Acute on chronic respiratory failure with hypoxia and hypercapnia: (2) Lung cancer: (3) Elevated troponin level: PLAN: 56-year-old patient admitted through the ER Patient with acute on chronic combined respiratory failure Encephalopathy secondary to CO2 retention Also had chronic renal disease and history of lung cancer hypothyroidism Cardiac auscultation requested because of elevated cardiac biomarker high sensitive troponins which is trending down There is no reported prior cardiac history. Cardiac care plan recommendations; 1. Likely type II [place] secondary to acute on chronic COPD with hypoxemia 2. We will evaluate with echocardiogram tomorrow and will continue to monitor and follow-up clinically. HPI Consult Data Date of Consult: 08/17/21 HPI Narrative Reason for Consultation: Elevated high sensitive troponin/type II [place] HPI Narrative: SUMEET ELLIOTT, is a 56 M who presents [facility] Medical History (Updated 08/17/21 @ 17:[address] Blanka Mccloud MD) Chronic kidney disease (CKD) stage G3a/A1, moderately decreased glomerular filtration rate (GFR) between 45-59 mL/min/1.73 square meter and albuminuria creatinine ratio less than 30 mg/g COPD (chronic obstructive pulmonary disease) Elevated troponin level Emphysema lung History of COPD Lung cancer Home Medications furosemide 60 mg PO BID 06/27/21 [History Last Taken Unknown] gabapentin 300 mg PO QHS 06/27/21 [History Last Taken Unknown] hydromorphone 2 mg PO Q8 PRN 06/27/21 [History Last Taken Unknown] ipratropium-albuterol 3 ml INHALATION Q4H PRN PRN 06/27/21 [History Last Taken Unknown] levothyroxine 175 mcg PO DAILY 06/27/21 [History Last Taken Unknown] methadone 10 mg PO BID 06/27/21 [History Last Taken Unknown] methylphenidate HCl 5 mg PO BID 06/27/21 [History Last Taken Unknown] carbamide peroxide [Ear Drops (carbamide peroxide)] 5 drp LEFT EAR DAILY 4 Days #15 ml 06/29/21 [Rx Last Taken Unknown] levofloxacin 750 mg PO DAILY #2 tab 06/29/21 [Rx Last Taken Unknown] metoprolol succinate 50 mg PO DAILY #30 tab 06/29/21 [Rx Last Taken Unknown] prednisone 40 mg PO DAILY #60 tab 06/29/21 [Rx Last Taken Unknown] Allergy/AdvReac Type Severity Reaction Status Date / Time No Known Allergies Allergy Verified 06/27/21 10:46 Family History unable to obtain Surgical History unable to obtain Social History Smoking Status: Current every day smoker tobacco type: cigarettes and smokeless tobacco Physical Exam Narrative 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 showed sinus rhythm sinus tach Card exam S1-S2 regular Chest exam diminished air entry bilateral Risk Stratification Risk Stratification Applicable: Yes Age >/= 65: No >/= 3 CAD Risk Factors (HTN, HLD, DM, family hx of CAD, or current smoker): No Aspirin Use in the Past 7 Days: No Severe Angina (>/= episodes in 24 hours): No EKG ST Changes >/= 0.5mm: No Positive Cardiac Marker: Yes JUAN Risk Stratification Score: 1 JUAN % Risk: 5% Risk Objective Data Vital Signs: Vital Signs Temp Pulse Resp BP Pulse Ox 99.9 F H 87 16 101/71 94 08/17/21 16:00 08/17/21 16:00 08/17/21 16:00 08/17/21 16:00 08/17/21 16:00 Oxygen Delivery Method Mechanical Ventilator Weight: 191 lb 2.252 oz Body Mass Index (BMI) 29.0 Intake & Output: Intake and Output for Last 24 Hours 08/15/21 08/16/21 08/17/21 23:59 23:59 23:59 Intake Total 16.75 / 16.75 2182.96 / 2182.96 Output Total 1050 / 1050 Balance 16.75 / 16.75 1132.96 / 1132.96 Lab / Micro Data Result Diagrams: 08/17/21 05:05 08/17/21 05:05 Labs: Laboratory Results - last 24 hr 08/16/21 21:20: Urine Color Yellow, Urine Clarity Clear, Urine pH 6.0, Ur Specific [place] 1.025, Urine Protein 100 H, Urine Glucose (UA) 1000 H, Urine Ketones Negative, Urine Occult Blood 50 H, Urine Nitrite Negative, Urine Bili bermudez Negative, Urine Urobilinogen Normal, Ur Leukocyte Esterase Negative, Urine RBC 0-5 SEEN, Urine WBC 0 SEEN, Ur Squamous Epith Cells 0 SEEN, Urine Bacteria 0 SEEN, Hyaline Casts 0-5 SEEN, Urine Mucus 0 SEEN 08/16/21 22:30: WBC Cancelled, Corrected WBC Cancelled, RBC Cancelled, Hgb Cancelled, Hct Cancelled, MCV Cancelled, MCH Cancelled, MCHC Cancelled, RDW Std Deviation Cancelled, RDW Coeff of Imelda Cancelled, Plt Count Cancelled, MPV Cancelled, Immature Gran % (Auto) Cancelled, Neut % (Auto) Cancelled, Lymph % (Auto) Cancelled, [place] % (Auto) Cancelled, Eos % (Auto) Cancelled, Baso % (Auto) Cancelled, Absolute Neuts (auto) Cancelled, Absolute Lymphs (auto) Cancelled, Total Counted Cancelled, Neutrophils % (Manual) Cancelled, Band Neutrophils % Cancelled, Lymphocytes % (Manual) Cancelled, Monocytes % (Manual) Cancelled, Eosinophils % (Manual) Cancelled, Basophils % (Manual) Cancelled, Metamyelocytes % Cancelled, Myelocytes % Cancelled, Promyelocytes % Cancelled, Blast Cells % Cancelled, Plasma Cell % (Manual) Cancelled, Other Cells % Cancelled, Nucleated RBC % Cancelled, Nucleated RBCs/100 WBC Cancelled, Differential Comment Cancelled, Diff Path Review Cancelled, Hypersegmented Neuts Cancelled, Atypical Lymphocytes Cancelled, Reactive Lymphocytes Cancelled, Smudge Cells Cancelled, Toxic Granulation Cancelled, Toxic Vacuolation Cancelled, Dohle Bodies Canc elled, Rylee Rods Cancelled, Platelet Estimate Cancelled, Plt Morphology Comment Cancelled, RBC Morphology Cancelled, Polychromasia Cancelled, Hypochromasia Cancelled, Poikilocytosis Cancelled, Basophilic Stippling Cancelled, Anisocytosis Cancelled, Microcytosis Cancelled, Macrocytosis Cancelled, Sph erocytes Cancelled, Sickle Cells Cancelled, Target Cells Cancelled, Tear Drop Cells Cancelled, Ovalocytes Cancelled, Stomatocytes Cancelled, Reyes-Gypsy Bodies Cancelled, [place] Cells Cancelled, Bite Cells Cancelled, Crenated Cell Cancelled, Acanthocytes (Spur) Cancelled, Rouleaux Cancelled, Schistocytes Cancelled 08/16/21 22:30: PT 11.8, INR 0.9, APTT 22.2 L 08/16/21 22:30: Sodium 139, Potassium 4.1, Chloride 94 L, Carbon Dioxide 39.0 H, Anion Gap 6, BUN 28 H, Creatinine 1.34 H, Estim Creat Clear Calc 65.95, Est GFR (MDRD) Af Amer 70, Est GFR (MDRD) Non-Af 58 L, BUN/Creatinine Ratio 20.9 H, Glucose 251 H, Calcium 7.8 L, Magnesium 2.0, Total Bilirubin 0.40, AST 50 H, ALT 72 H, Alkaline Phosphatase 105, Troponin I High Sens 131 H*, Total Protein 6.2 L , Albumin 3.1 L, Globulin 3.1, Albumin/Globulin Ratio 1.0 08/16/21 22:30: Lactic Acid 1.6 08/16/21 23:20: B-Natriuretic Peptide 229.0 H 08/16/21 23:20: WBC 18.6 H, RBC 4.05 L, Hgb 12.2 L, Hct 39.9 L, MCV 98.5 H, MCH 30.1, MCHC 30.6 L, RDW Std Deviation 52.1 H, RDW Coeff of Imelda 14.5, Plt Count 182, MPV 10.2, Immature Gran % (Auto) 1.800 H, Neut % (Auto) 94.4 H, Lymph % (Auto) 1.1 L, [place] % (Auto) 2.5, Eos % (Auto) 0.0, Baso % (Auto) 0.2, Absolute Neuts (auto) 17.6 H, Absolute Lymphs (auto) 0.21 L, Nucleated RBC % 0.2, Differential Comment SCANNED 08/17/21 05:05: WBC 10.7, RBC 3.55 L, Hgb 10.8 L, Hct 34.1 L, MCV 96.1 H, MCH 30.4, MCHC 31.7 L, RDW Std Deviation 51.1 H, RDW Coeff of Imelda 14.6, Plt Count 157, MPV 10.3, Immature Gran % (Auto) 1.100 H, Neut % (Auto) 94.2 H, Lymph % ( Auto) 1.8 L, [place] % (Auto) 2.8, Eos % (Auto) 0.0, Baso % (Auto) 0.1, Absolute Neuts (auto) 10.1 H, Absolute Lymphs (auto) 0.19 L, Nucleated RBC % 0.2, Differential Comment SCANNED 08/17/21 05:05: Sodium 136, Potassium 3.9, Chloride 91 L, Carbon Dioxide 39.0 H, Anion Gap 6, BUN 27 H, Creatinine 1.20, Estim Creat Clear Calc 64.92, Est GFR (MDRD) Af Amer 80, Est GFR (MDRD) Non-Af 66, BUN/Creatinine Ratio 22.5 H, Glu cose 287 H, Calcium 8.1 L 08/17/21 05:05: Phosphorus 2.1 L, Magnesium 2.3 08/17/21 10:50: Troponin I High Sens 346 H* 08/17/21 16:15: Troponin I High Sens 296 H* Micro: Microbiology 08/16/21 21:23 Sputum, Induced/Lukens Gram Stain - Final 08/16/21 21:23 Sputum, Induced/Lukens Respiratory Culture - Preliminary Appears to be normal respiratory jace. Further studies to follow. ABG Data ABG results: ABG 08/16/21 23:08 Specimen Type ART Sample Site R Radial pH 7.34 L Bicarbonate Actual 38.1 H Total CO2 40 Base Excess 12 H O2 Saturation 95 O2 % 45 ABG pCO2 71.1 H* ABG pO2 83 Ty Test Positive Respiration Rate 14 Vent Mode AC Tidal Volume 450 POC PEEP 5 Crit Call To/Read Back Yes Blood Gas Notified Whom barroni Rhythm Strip Rhythm Strip: Sinus Tach Rate: 120 Ectopy: None Cardiology Labs/Tests 08/16/21 21:20: Urine Color Yellow, Urine Clarity Clear, Urine pH 6.0, Ur Spe cific [place] 1.025, Urine Protein 100 H, Urine Glucose (UA) 1000 H, Urine Ketones Negative, Urine Occult Blood 50 H, Urine Nitrite Negative, Urine Bilirubin Negative, Urine Urobilinogen Normal, Ur Leukocyte Esterase Negative, Urine RBC 0-5 SEEN, Urine WBC 0 SEEN 08/16/21 22:30: WBC Cancelled, Corrected WBC Cancelled, RBC Cancelled, Hgb Cancelled, Hct Cancelled, MCV Cancelled, MCH Cancelled, MCHC Cancelled, Plt Count Cancelled, MPV Cancelled, Immature Gran % (Auto) Cancelled, Neut % (Auto) Cancelled, Lymph % (Auto) Cancelled, [place] % (Auto) Cancelled, Eos % (Auto) Cancelled, Baso % (Auto) Cancelled, Absolute Neuts (auto) Cancelled, Total Counted Cancelled, Neutrophils % (Manual) Cancelled, Band Neutrophils % Cancelled, Lymphocytes % (Manual) Cancelled, Monocytes % (Manual) Cancelled, Eosinophils % (Manual) Cancelled, Basophils % (Manual) Cancelled, Metamyelocytes % Cancelled, Myelocytes % Cancelled, Promyelocytes % Cancelled, Blast Cells % Cancelled, Plasma Cell % (Manual) Cancelled, Other Cells % Cancelled, Nucleated RBC % Cancelled 08/16/21 22:30: PT 11.8, INR 0.9, APTT 22.2 L 08/16/21 22:30: Sodium 139, Potassium 4.1, Chloride 94 L, Carbon Dioxide 39.0 H, Anion Gap 6, BUN 28 H, Creatinine 1.34 H, Est GFR (MDRD) Af Amer 70, Est GFR (MDRD) Non-Af 58 L, BUN/Creatinine Ratio 20.9 H, Glucose 251 H, Calcium 7.8 L, Magnesium 2.0, Total Bilirubin 0.40 08/16/21 22:30: Lactic Acid 1.6 08/16/21 23:08: pH 7.34 L, Bicarbonate Actual 38.1 H, Base Excess 12 H, O2 Saturation 95, ABG pCO2 71.1 H*, ABG pO2 83, Ty Test Positive 08/16/21 23:20: B-Natriuretic Peptide 229.0 H 08/16/21 23:20: WBC 18.6 H, RBC 4.05 L, Hgb 12.2 L, Hct 39.9 L, MCV 98.5 H, MCH 30.1, MCHC 30.6 L, Plt Count 182, MPV 10.2, Immature Gran % (Auto) 1.800 H, Neut % (Auto) 94.4 H, Lymph % (Auto) 1.1 L, [place] % (Auto) 2.5, Eos % (Auto) 0.0, Baso % (Auto) 0.2, Absolute Neuts (auto) 17.6 H, Nucleated RBC % 0.2 08/17/21 05:05: WBC 10.7, RBC 3.55 L, Hgb 10.8 L, Hct 34.1 L, MCV 96.1 H, MCH 30.4, MCHC 31.7 L, Plt Count 157, MPV 10.3, Immature Gran % (Auto) 1.100 H, Neut % (Auto) 94.2 H, Lymph % (Auto) 1.8 L, [place] % (Auto) 2.8, Eos % (Auto) 0.0, Baso % (Auto) 0.1, Absolute Neuts (auto) 10.1 H, Nucleated RBC % 0.2 08/17/21 05:05: Sodium 136, Potassium 3.9, Chloride 91 L, Carbon Dioxide 39.0 H, Anion Gap 6, BUN 27 H, Creatinine 1.20, Est GFR (MDRD) Af Amer 80, Est GFR (MDRD) Non-Af 66, BUN/Creatinine Ratio 22.5 H, Glucose 287 H, Calcium 8.1 L 08/17/21 05:05: Phosphorus 2.1 L, Magnesium 2.3 Rhythm: EKG: ECHO: Stress Test: Cardiac Cath: PCI: CT Surgery: Holter monitor: EPS: PPM: CXR: Chest CT Scan: Radiography Diagnostic Testing: Radiology Impression Chest X-Ray 08/16/21 21:06 IMPRESSION: Endotracheal and esophagogastric tubes, as above. Electronically Signed: Joe Mora MD (Brooks) at 21:48 EDT , KUB X-Ray 08/16/21 21:33 IMPRESSION: Esophagogastric tube extends to the stomach. Electronically Signed: Joe Mora MD (Brooks) at 21:47 EDT , Chest X-Ray 08/16/21 22:50 IMPRESSION: Malposition of the central line as detailed above. Does not extend into the chest. No pneumothorax. ET tube satisfactory position. Electronically Signed: Lyndsey Hartley MD at 23:25 EDT , ADDENDUM: 08/16/21 [id number] IMPRESSION: Malposition of the central line as detailed above. Does not extend into the chest. No pneumothorax. ET tube satisfactory position. N.B. : The above Results were Read Back by Lyndsey Hartley MD to Dr. Luis Meyer MD, and understanding confirmed on 08/16/2021 23:28:11 (ET). Electronically Signed: Lyndsey Hartley MD at 23:25 EDT , Chest X-Ray 08/17/21 00:45 IMPRESSION: Central line as described. No pneumothorax. Clear lungs. Electronically Signed: Lyndsey Hartley MD at 1:05 EDT ,
[2021-08-17] MEDS: Aspirin 325 MG Tablet NG (17:57)
--- NOTE | 2021-08-17 18:13 | PN.HOSP_ITS ---
Subjective Subjective Follow-up for acute on chronic respiratory failure Patient is intubated on IV propofol and fentanyl drip. Patient is agitated. Has bilateral wrist restraints Objective Data Objective Data Vital Signs: Vital Signs Temp Pulse Resp BP Pulse Ox 99.1 F 94 16 101/74 95 08/17/21 07:00 08/17/21 07:00 08/17/21 07:00 08/17/21 07:00 08/17/21 07:00 Oxygen Delivery Method Mechanical Ventilator Weight: 191 lb 2.252 oz Body Mass Index (BMI) 29.0 Intake & Output: Intake and Output for Last 24 Hours 08/15/21 08/16/21 08/17/21 23:59 23:59 23:59 Intake Total 16.75 / 16.75 1352.58 / 1352.58 Output Total 800 / 800 Balance 16.75 / 16.75 552.58 / 552.58 Lab / Micro Data Result Diagrams: 08/17/21 05:05 08/17/21 05:05 Labs: Laboratory Results - last 24 hr 08/16/21 21:20: Urine Color Yellow, Urine Clarity Clear, Urine pH 6.0, Ur Specific [place] 1.025, Urine Protein 100 H, Urine Glucose (UA) 1000 H, Urine Ketones Negative, Urine Occult Blood 50 H, Urine Nitrite Negative, Urine Bilirubin Negative, Urine Urobilinogen Normal, Ur Leukocyte Esterase Negative, Urine RBC 0-5 SEEN, Urine WBC 0 SEEN, Ur Squamous Epith Cells 0 SEEN, Urine Bacteria 0 SEEN, Hyaline Casts 0-5 SEEN, Urine Mucus 0 SEEN 08/16/21 22:30: PT 11.8, INR 0.9, APTT 22.2 L 08/16/21 22:30: Sodium 139, Potassium 4.1, Chloride 94 L, Carbon Dioxide 39.0 H, Anion Gap 6, BUN 28 H, Creatinine 1.34 H, Estim Creat Clear Calc 65.95, Est GFR (MDRD) Af Amer 70, Est GFR (MDRD) Non-Af 58 L, BUN/Creatinine Ratio 20.9 H, Glucose 251 H, Calcium 7.8 L, Magnesium 2.0, Total Bilirubin 0.40, AST 50 H, ALT 72 H, Alkaline Phosphatase 105, Troponin I High Sens 131 H*, Total Protein 6.2 L , Albumin 3.1 L, Globulin 3.1, Albumin/Globulin Ratio 1.0 08/16/21 22:30: Lactic Acid 1.6 08/16/21 23:20: B-Natriuretic Peptide 229.0 H 08/16/21 23:20: WBC 18.6 H, RBC 4.05 L, Hgb 12.2 L, Hct 39.9 L, MCV 98.5 H, MCH 30.1, MCHC 30.6 L, RDW Std Deviation 52.1 H, RDW Coeff of Imelda 14.5, Plt Count 182, MPV 10.2, Immature Gran % (Auto) 1.800 H, Neut % (Auto) 94.4 H, Lymph % (Auto) 1.1 L, [place] % (Auto) 2.5, Eos % (Auto) 0.0, Baso % (Auto) 0.2, Absolute Neuts (auto) 17.6 H, Absolute Lymphs (auto) 0.21 L, Nucleated RBC % 0.2, Differential Comment SCANNED 08/17/21 05:05: WBC 10.7, RBC 3.55 L, Hgb 10.8 L, Hct 34.1 L, MCV 96.1 H, MCH 30.4, MCHC 31.7 L, RDW Std Deviation 51.1 H, RDW Coeff of Imelda 14.6, Plt Count 157, MPV 10.3, Immature Gran % (Auto) 1.100 H, Neut % (Auto) 94.2 H, Lymph % (Auto) 1.8 L, [place] % (Auto) 2.8, Eos % (Auto) 0.0, Baso % (Auto) 0.1, Absolute Neuts (auto) 10.1 H, Absolute Lymphs (auto) 0.19 L, Nucleated RBC % 0.2, Differential Comment SCANNED 08/17/21 05:05: Sodium 136, Potassium 3.9, Chloride 91 L, Carbon Dioxide 39.0 H, Anion Gap 6, BUN 27 H, Creatinine 1.20, Estim Creat Clear Calc 64.92, Est GFR (MDRD) Af Amer 80, Est GFR (MDRD) Non-Af 66, BUN/Creatinine Ratio 22.5 H, Glucose 287 H, Calcium 8.1 L ABG Data ABG results: ABG 08/16/21 23:08 Specimen Type ART Sample Site R Radial pH 7.34 L Bicarbonate Actual 38.1 H Total CO2 40 Base Excess 12 H O2 Saturation 95 O2 % 45 ABG pCO2 71.1 H* ABG pO2 83 Ty Test Positive Respiration Rate 14 Vent Mode AC Tidal Volume 450 POC PEEP 5 Crit Call To/Read Back Yes Blood Gas Notified Whom barroni Radiography Diagnostic Testing: Radiology Impression Chest X-Ray 08/16/21 21:06 IMPRESSION: Endotracheal and esophagogastric tubes, as above. KUB X-Ray 08/16/21 21:33 IMPRESSION: Esophagogastric tube extends to the stomach. Electronically Signed: Joe Mora MD ([facility]) at 21:47 EDT , Chest X-Ray 08/16/21 22:50 IMPRESSION: Malposition of the central line as detailed above. Does not extend into the chest. No pneumothorax. ET tube satisfactory position. Electronically Signed: Chest X-Ray 08/17/21 00:45 IMPRESSION: Central line as described. No pneumothorax. Clear lungs. 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 General: Mildly secluded. Overweight BMI 29.1 kg per metered square HEENT: Atraumatic, PERRLA, EOMI, Normocephalic Oral: ET and OG-tube. Has oral secretions. On suction Neck: Right subclavian CVC catheter. Supple, No JVD, Negative Carotid Bruits Lungs: Intubated on vent support, AC mode. Air entry diminished in bilateral lung bases. Bilateral wheezing Cardiovascular: Sinus tachycardia, Normal S1, Normal S2, No murmurs Abdomen: Bowel Sounds Present, Soft, Non Tender, Non-Distended : No renal angle tenderness. No suprapubic tenderness. Extremities: Mild bilateral ankle edema, Capillary Refill Less than 3 Seconds Skin: No rashes, No breakdown Musculoskeletal: No Tenderness to Palpation of Joints or Extremities Neurological: Cranial nerves II-XII grossly intact, DTR 2+/4 and Symmetrical, Neuro grossly intact Psych/Mental Status: Mildly sedated Assessment & Plan Assessment/Plan (1) Acute on chronic respiratory failure with hypoxia and hypercapnia: (2) Acute exacerbation of chronic obstructive pulmonary disease: PLAN: This 56-year-old gentleman was admitted with severe respiratory distress, lethargy with history of lung cancer, emphysema and chronic hypoxic respiratory failure on 4 L of home oxygen. Patient was immediately intubated in the ED. Patient was last admitted on 06/27/2021 under similar circumstances of unresponsiveness, respiratory failure and nonadherence to CPAP with history of RADHA. At that time EMS found end-tidal CO2 at 140 1. Acute on chronic respiratory failure with hypoxia and hypercapnia secondary to COPD exacerbation with concern of possible aspiration: Chest x-ray done in the ED does not show acute infiltrate but chronic bronchovascular markings. Patient was intubated in ED at that time was noticed food in the back of her throat therefore concern of aspiration. Patient had hypotension and therefore a right subclavian CVC catheter inserted which on x-ray showed going to the right IJ therefore subsequently was repositioned to SVC. Patient is on bronchodilator, IV Solu-Medrol. On Unasyn. Patient is being comanaged with the lock expert. Patient on assist control mode. Blood cultures, sputum and urine cultures are pending. Patient has elevated BNP and subtle bilateral ankle swelling. 2D echo ordered to look for right side of the heart/pulmonary hypertension. No prior echo in our system. 2. Acute encephalopathy most likely due to CO2 retention/metabolic/opioid/poly pharmacy: We will review opioid medication after extubation. Patient on methadone, gabapentin, hydromorphone and methylphenidate at home Electrolyte abnormality: Hypophosphatemia: 3. Lung cancer: Patient has history of lung cancer unclear about the staging and follow-up. ? Unsure as to what stage or kind he does not have any records of this hospital prior to 06/27/2021 4. Possible heart failure, exact type, class in etiology unclear, elevated troponin 1 time: Patient had one-time troponin 131. Most likely type II ME from demand ischemia. Cycle troponins. 2D echo is ordered. At home, patient on furosemide 60 mg p.o. twice daily. Currently on hold, resume furosemide once hemodynamics permits. Currently blood pressure on lower side 103/71. 5. Stage III CKDa: Patient admitted with creatinine 1.34. BUN 27, creatinine 1.2. Estimated creatinine clearance 64 mL/min. BUN/creatinine 22. Monitor kidney function. 6.. Hypothyroidism, chronic pain syndrome: TSH when patient is on baseline, not now. DVT: Lovenox Total time of the visit including total time spent in counseling or coordination of care, (more than 50% of the total time, spent in obtaining medical information from nurses and other ancillary care providers,explaining to the patient about labs, imaging, diagnosis and management), , review of labs and imaging is 40 minutes. Charges/Coding Visit Charges Inpatient E&M: 34336 Subs Hosp L3
[2021-08-17] MEDS: Atorvastatin Calcium 40 MG Tablet NG (21:31)
[2021-08-18] VITALS (41 sets, daily range): BP systolic 101–161; BP diastolic 67–108; PULSE 92–133; RESP 13–28; TEMP 37.2–37.6; O2SAT 91–100
[2021-08-18] MEDS: Propofol 10MG/Ml 1,000 MG/100 ML Bottle 18.2 MG CONT INF (01:04)
[2021-08-18] MEDS: Ipratropium/Albuterol Sulfate 3 ML AMPUL.NEB INHALATION ×4 (01:51→19:04)
[2021-08-18 04:53] LABS: Cholesterol 226 mg/dL (200); High Density Lipoprotein 36 mg/dL; Triglycerides 1009 mg/dL
[2021-08-18] MEDS: 0.9% Saline Lock 10 ML Syringe IV (04:56)
[2021-08-18] MEDS: Levothyroxine 175 MCG Tablet NG (04:59)
[2021-08-18 05:28] LABS: Absolute Neutrophil Count 9.9 X10^3/uL (2.0-7.7); Basophil# 0.01 X10^3/uL; Basophil% 0.1 % (0-1); Differential Indicated SCAN CRITERIA MET; Hematocrit 33.8 % (40-54); Hemoglobin 10.6 g/dL (13.0-16.5); Lymphocyte % 1.9 % (19-41); Mean Corp Hgb Conc 31.4 g/dL (32-36); Mean Corpuscular Hgb 30.3 pg (27.0-32.0); Mean Corpuscular Volume 96.6 fL (80-94); Mean Platelet Vol. 11.1 fl (6.2-12.0); Monocyte# 0.37 X10^3/uL; Monocyte% 3.5 % (0-10); NRBC Flagged by Analyzer 0.5 % (0-5); Neutrophil # 9.86 X10^3/uL (2.7-7.7); Neutrophil % 92.3 % (47-70); POSITIVE DIFFERENTIAL YES; Platelet Count 164 K/mm3 (150-450); RBC Distribution Width SD 52.8 fl (35.1-43.9); White Blood Count 10.7 K/mm3 (4.4-11.0)
[2021-08-18 05:40] LABS: Anion Gap 9 (5-15); BUN 31 mg/dL (7-18); BUN/Creat Ratio 27.2 RATIO (10-20); Calcium,Total 8.3 mg/dL (8.5-10.1); Chloride 91 mmol/L (98-107); Creatinine, Serum 1.14 mg/dL (0.70-1.30); EST Glomerular Filtration Rate 70 mL/min (>60); Est Glom Filt Rate - Afr Amer 85 mL/min (>60); Estimated Creatinine Clearance 68.33 ml/min; Glucose 342 mg/dL (74-106); Magnesium 2.1 mg/dL (1.6-2.6); Potassium 3.5 mmol/L (3.5-5.1); Sodium Level 135 mmol/L (136-145)
[2021-08-18 05:41] LABS: Phosphorus 2.4 mg/dL (2.5-4.9)
[2021-08-18 05:42] LABS: Differential Comment SCANNED
--- NOTE | 2021-08-18 05:55 | ECHOCS_ITS ---
Reason For Study: COPD, Lung CA, SOB Procedure This was a 2D Doppler, Color Flow transthoracic echocardiogram. The study was technically difficult. Contrast injection was performed. Exam performed portable in ICU/CCU. Left Ventricle Based upon the 2D echocardiographic and contrast enhanced images obtained there appears to be grossly normal left ventricular size, wall motion, and systolic function. The estimated ejection fraction is 65 %. Transmitral doppler flow suggestive of impaired relaxation of left ventricle. Right Ventricle Normal RV size. Normal systolic function. Atria Normal left atrium. Normal right atrium. No doppler evidence for ASD. Mitral Valve There is no mitral annular calcification. Normal mitral valve. Trivial mitral valve insufficiency. Tricuspid Valve Normal tricuspid valve. Trivial tricuspid valve insufficiency. Unable to estimate RV systolic pressure/pulmonary artery pressure due to technically difficult study. Aortic Valve Trisinus/trileaflet aortic valve. The aortic valve is not well visualized. Trivial aortic valve insufficiency. Pulmonic Valve The pulmonic valve is not well visualized. Great Vessels Normal sized aortic root. Pericardium/Pleural Trivial pericardial effusion. There are no echocardiographic indications of cardiac tamponade. Medication Diluted definity 2ml given slow IV push to enhance endocardial definition. MMode/2D Measurements & Calculations LVIDd: 4.5 cm IVSd: 0.76 cm Ao root diam: 3.2 cm LVIDs: 3.1 cm LVPWd: 1.0 cm FS: 32.3 % LAV(MOD-sp4): 37.4 ml LVAd ap4: 32.4 cm2 SV(MOD-sp4): 75.6 ml LVLd ap4: 7.6 cm EDV(MOD-sp4): 117.9 ml EDV(sp4-el): 117.1 ml LVAs ap4: 17.0 cm2 LVLs ap4: 5.6 cm ESV(MOD-sp4): 42.3 ml ESV(sp4-el): 43.8 ml EF(MOD-sp4): 64.1 % EF(sp4-el): 62.6 % SV(sp4-el): 73.4 ml LA A4 area: 15.4 cm2 LA dimension(2D): 2.8 cm RA A4 area: 13.8 cm2 Doppler Measurements & Calculations MV E max pradip: 58.7 cm/sec Lat Peak E' Pradip: 7.0 cm/sec Med Peak E' Pradip: 5.4 cm/sec MV A max pradip: 79.3 cm/sec E/E' lat: 8.4 E/E' med: 10.8 MV E/A: 0.74 Ao V2 max: 130.2 cm/sec PA V2 max: 90.4 cm/sec Ao max P.8 mmHg ECHO/Echo Complete W/ Contrast Interpretation Summary The study was technically difficult. Contrast injection was performed. Based upon the 2D echocardiographic and contrast enhanced images obtained there appears to be grossly normal left ventricular size, wall motion, and systolic function. The estimated ejection fraction is 65 %. Trivial mitral valve insufficiency. Trivial tricuspid valve insufficiency. Trivial aortic valve insufficiency. Trivial pericardial effusion. There are no echocardiographic indications of cardiac tamponade. Unable to estimate RV systolic pressure/pulmonary artery pressure due to techni mihir difficult study. Transmitral doppler flow suggestive of impaired relaxation of left ventricle Ordering Physician: Gal Browning Referring Physician: Sergio Devi Performed By: Natalie Knott RDCS
[2021-08-18] MEDS: TITRATION PARAMETER CHANGE 1 EACH IV (06:11)
[2021-08-18] MEDS: Insulin Lispro 100 UNIT/ML INSULN.PEN SC ×4 (06:30→21:11)
--- NOTE | 2021-08-18 06:54 | PCM.PN.INT ---
Assessment & Plan Assessment/Plan (1) Acute on chronic respiratory failure with hypoxia and hypercapnia: PLAN: RECOMMENDATIONS: 1. Continue assist control mode mechanical ventilation. Wean FiO2/PEEP for saturations greater than 90%. Await ABG 2. Continue empiric antimicrobials pending culture data. 3. Continue scheduled bronchodilators and IV steroids. 4. Continue current sedation regimen. 5. Continue appropriate DVT and GI prophylaxis. Electrolyte repletion as indicated 6. Await echocardiogram IMPRESSIONS: 1. Acute on chronic combined respiratory failure The patient has a reported history of COPD of unclear severity along with chronic hypoxemic respiratory failure. His compliance with outpatient prescribed medical therapy is questionable. No definitive pulmonary infectious etiology has been identified. Therefore, it is certainly plausible that his noncompliance led to his exacerbation. Alternatively, there is also the possibility that the patient may have aspirated in the setting of being found encephalopathic, which is likely secondary to chronic opiate utilization and limited respiratory reserve. Await response of spontaneous breathing trial this morning. FiO2 and PEEP will be weaned as tolerated. The patient will be continued on Unasyn to cover for possible aspiration along with scheduled bronchodilators and IV steroids. Will need to be transition to Precedex therapy if fails spontaneous breathing trial given elevated triglycerides 2. Encephalopathy Appears improved. Likely secondary to CO2 retention in the setting of opiate medication utilization. The patient's utilization of home opiate medications will need to be reviewed after he has been liberated from invasive mechanical ventilatory support. 3. Chronic kidney disease/history of lung cancer/hypothyroidism/chronic pain syndrome Complicates care, management, recovery and prognosis. The patient's lung cancer history is a bit unclear. It is not known what type or what stage his lung cancer was. This will need to be clarified further with the patient and his family. TIME: 37 minutes of critical care time, independent of procedures, was spent addressing the patient's acute on chronic combined respiratory failure, encephalopathy, review of all data and collaboration with the care team. Subjective Subjective The patient did okay overnight. No acute issues were reported. Patient has had some PVCs and nonsustained V. tach, but no hemodynamic instability. Tube feeds were at goal prior to initiation of spontaneous breathing trial. Patient has come back positive with gram-positive cocci in the blood preliminarily. Patient was very anxious about being extubated on my evaluation. ABG is still pending. Objective Data Objective Data Vital Signs: Vital Signs Temp Pulse Resp BP Pulse Ox 37.3 C 103 H 13 145/95 H 91 08/18/21 05:00 08/18/21 06:00 08/18/21 06:00 08/18/21 06:00 08/18/21 06:00 Oxygen Delivery Method Mechanical Ventilator Weight: 89.1 kg Body Mass Index (BMI) 29.0 Intake & Output: Intake and Output for Last 24 Hours 08/16/21 08/17/21 08/18/21 23:59 23:59 23:59 Intake Total 16.75 / 16.75 2928.76 / 3251.06 1031.65 / 1031.65 Output Total 1400 / 1530 585 / 585 Balance 16.75 / 16.75 1528.76 / 1721.06 446.65 / 446.65 Lab / Micro Data Result Diagrams: 08/18/21 04:18 08/18/21 04:18 Labs: Laboratory Results - last 24 hr 08/17/21 05:05: Phosphorus 2.1 L, Magnesium 2.3 08/17/21 10:50: Troponin I High Sens 346 H* 08/17/21 16:15: Troponin I High Sens 296 H* 08/18/21 04:18: Triglycerides 1009 H, Cholesterol 226 H, LDL Cholesterol TNP, VLDL Cholesterol TNP, HDL Cholesterol 36 L 08/18/21 04:18: WBC 10.7, RBC 3.50 L, Hgb 10.6 L, Hct 33.8 L, MCV 96.6 H, MCH 30.3, MCHC 31.4 L, RDW Std Deviation 52.8 H, RDW Coeff of Imelda 15.0 H, Plt Count 164, MPV 11.1, Immature Gran % (Auto) 2.200 H, Neut % (Auto) 92.3 H, Lymph % (Auto) 1.9 L, [place] % (Auto) 3.5, Eos % (Auto) 0.0, Baso % (Auto) 0.1, Absolute Neuts (auto) 9.9 H, Absolute Lymphs (auto) 0.20 L, Nucleated RBC % 0.5, Differential Comment SCANNED 08/18/21 04:18: Sodium 135 L, Potassium 3.5, Chloride 91 L, Carbon Dioxide 35.0 H, Anion Gap 9, BUN 31 H, Creatinine 1.14, Estim Creat Clear Calc 68.33, Est GFR (MDRD) Af Amer 85, Est GFR (MDRD) Non-Af 70, BUN/Creatinine Ratio 27.2 H, Glucose 342 H, Calcium 8.3 L, Magnesium 2.1 08/18/21 04:18: Phosphorus 2.4 L Micro: Microbiology 08/16/21 22:30 Blood Culture (Wb) - Other Blood Culture - Preliminary 08/16/21 21:23 Sputum, Induced/Lukens Gram Stain - Final 08/16/21 21:23 Sputum, Induced/Lukens Respiratory Culture - Preliminary Appears to be normal respiratory jace. Further studies to follow. Rhythm Strip Rhythm Strip: Sinus Tach Rate: 120 Ectopy: None Physical Exam Const no apparent distress General Appearance: intubated and patient mechanically ventilated HEENT normocephalic and head/scalp atraumatic Mouth: endotracheal tube in place and OG tube in place Eyes PERRL and conjunctivae normal Neck supple General: trachea midline and CVC in place Chest Chest Narrative: Increased AP diameter Chest: symmetrical chest wall rise; Negative for crepitus Resp Resp Narrative: Coarse bilateral wheezes noted. Prolonged expiration Auscultation: diminished lung sounds; Negative for rales or rhonchi Cardio regular rate and regular rhythm GI normal to inspection, nondistended, normoactive bowel sounds Extremity no clubbing, cyanosis or edema Skin no rashes or lesions noted Neuro Sensorium / Orientation: sedated on vent Charges/Coding Procedures Hospitalists Procedures: 21752 Critial Care 1st Hr
[2021-08-18] MEDS: Famotidine 20 MG Tablet PO ×2 (07:05→21:11)
[2021-08-18] MEDS: Metoprolol Tartrate 25 MG Tablet GT (07:05)
[2021-08-18] MEDS: Aspirin 81 MG TAB.CHEW NG (07:05)
[2021-08-18 07:26] LABS: Base Excess 9 mmol/L (-2 to +2); Bicarbonate 33.2 mmol/L (22-26); Blood Gas Specimen Type ART; FI02 30; PO2 62 mmHG (75-100); SITE L Radial; SO2 92 % (95-99); Total Carbon Dioxide 35 mmol/L; pCO2 47.5 mmHg (35-45); pH 7.45 (7.35-7.45)
[2021-08-18] MEDS: Albuterol 2.5 MG/3 ML VIAL.NEB. INHALATION (10:03)
[2021-08-18] MEDS: Enoxaparin 40 MG/0.4 ML Syringe SC (10:48)
[2021-08-18] MEDS: Chlorhexidine 15 ML PO (10:48)
[2021-08-18] MEDS: Methadone 10 MG Tablet PO ×2 (10:48→21:05)
--- NOTE | 2021-08-18 10:52 | PN.CARD_ITS ---
Subjective Subjective Patient is still on a ventilator/intubated No event from last night Objective Data Vital Signs: Vital Signs Temp Pulse Resp BP Pulse Ox 99.2 F H 106 H 18 151/97 H 97 08/18/21 09:00 08/18/21 10:08 08/18/21 10:08 08/18/21 09:00 08/18/21 09:36 Oxygen Flow Rate (L/min) 4 Oxygen Delivery Method Nasal Cannula Weight: 196 lb 6.91 oz Body Mass Index (BMI) 29.0 Intake & Output: Intake and Output for Last 24 Hours 08/16/21 08/17/21 08/18/21 23:59 23:59 23:59 Intake Total 16.75 / 16.75 2928.76 / 3251.06 1294.90 / 1294.90 Output Total 1400 / 1530 585 / 585 Balance 16.75 / 16.75 1528.76 / 1721.06 709.90 / 709.90 Lab / Micro Data Result Diagrams: 08/18/21 04:18 08/18/21 04:18 Labs: Laboratory Results - last 24 hr 08/17/21 10:50: Troponin I High Sens 346 H* 08/17/21 16:15: Troponin I High Sens 296 H* 08/18/21 04:18: Triglycerides 1009 H, Cholesterol 226 H, LDL Cholesterol TNP, VLDL Cholesterol TNP, HDL Cholesterol 36 L 08/18/21 04:18: WBC 10.7, RBC 3.50 L, Hgb 10.6 L, Hct 33.8 L, MCV 96.6 H, MCH 30.3, MCHC 31.4 L, RDW Std Deviation 52.8 H, RDW Coeff of Imelda 15.0 H, Plt Count 164, MPV 11.1, Immature Gran % (Auto) 2.200 H, Neut % (Auto) 92.3 H, Lymph % (Auto) 1.9 L, [place] % (Auto) 3.5, Eos % (Auto) 0.0, Baso % (Auto) 0.1, Absolute Neuts (auto) 9.9 H, Absolute Lymphs (auto) 0.20 L, Nucleated RBC % 0.5, Differential Comment SCANNED 08/18/21 04:18: Sodium 135 L, Potassium 3.5, Chloride 91 L, Carbon Dioxide 35.0 H, Anion Gap 9, BUN 31 H, Creatinine 1.14, Estim Creat Clear Calc 68.33, Est GFR (MDRD) Af Amer 85, Est GFR (MDRD) Non-Af 70, BUN/Creatinine Ratio 27.2 H, Glucose 342 H, Calcium 8.3 L, Magnesium 2.1 08/18/21 04:18: Phosphorus 2.4 L Micro: Microbiology 08/16/21 21:23 Sputum, Induced/Lukens Gram Stain - Final 08/16/21 21:23 Sputum, Induced/Lukens Respiratory Culture - Preliminary Gram negative [id number] 08/16/21 21:20 Urine Catheter - Brown Urine Culture - Preliminary Culture exhibits no growth. 08/16/21 22:30 Blood Culture (Wb) - Other Blood Culture - Preliminary ABG Data ABG results: ABG 08/18/21 07:19 Specimen Type ART Sample Site L Radial pH 7.45 Bicarbonate Actual 33.2 H Total CO2 35 Base Excess 9 H O2 Saturation 92 L O2 % 30 ABG pCO2 47.5 H ABG pO2 62 L Rhythm Strip Rhythm Strip: Sinus Tach Rate: 120 Ectopy: None Cardiology Labs/Tests 08/18/21 04:18: Triglycerides 1009 H, Cholesterol 226 H, LDL Cholesterol TNP, VLDL Cholesterol TNP, HDL Cholesterol 36 L 08/18/21 04:18: WBC 10.7, RBC 3.50 L, Hgb 10.6 L, Hct 33.8 L, MCV 96.6 H, MCH 30.3, MCHC 31.4 L, Plt Count 164, MPV 11.1, Immature Gran % (Auto) 2.200 H, Neut % (Auto) 92.3 H, Lymph % (Auto) 1.9 L, [place] % (Auto) 3.5, Eos % (Auto) 0.0, Baso % (Auto) 0.1, Absolute Neuts (auto) 9.9 H, Nucleated RBC % 0.5 08/18/21 04:18: Sodium 135 L, Potassium 3.5, Chloride 91 L, Carbon Dioxide 35.0 H, Anion Gap 9, BUN 31 H, Creatinine 1.14, Est GFR (MDRD) Af Amer 85, Est GFR (MDRD) Non-Af 70, BUN/Creatinine Ratio 27.2 H, Glucose 342 H, Calcium 8.3 L, Magnesium 2.1 08/18/21 04:18: Phosphorus 2.4 L 08/18/21 07:19: pH 7.45, Bicarbonate Actual 33.2 H, Base Excess 9 H, O2 Saturation 92 L, ABG pCO2 47.5 H, ABG pO2 62 L Rhythm: EKG: ECHO: Stress Test: Cardiac Cath: PCI: CT Surgery: Holter monitor: EPS: PPM: CXR: Chest CT Scan: Physical Exam Narrative Limited physical exam patient is on a ventilator. 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 Assessment & Plan Assessment/Plan (1) Acute on chronic respiratory failure with hypoxia and hypercapnia: (2) Acute exacerbation of chronic obstructive pulmonary disease: (3) Lung cancer: (4) Elevated troponin level: PLAN: Is a follow-up on this patient who had acute on chronic respiratory failure. History of lung cancer With a history of emphysema/COPD patient is intubated and on ventilator Cardiac consultation requested because of mild elevation of high sensitive troponin/type II AR with demand myocardial ischemia There were no reported symptoms of chest pain Cardiac care plan recommendations; 1. I reviewed the current medication will continue current treatment 2. We will review the echocardiogram 3. We will discuss further plan once patient extubated and stable clinically With possible evaluation with the myocardial perfusion study which can be set up as an outpatient/
--- NOTE | 2021-08-18 10:58 | PN.HOSP_ITS ---
Subjective Subjective Extubated today. States that he is compliant with Trilogy machine, though it found last month he was not compliant with it. He states that he'll use it for an hour, then have to take it off. Objective Data Objective Data Vital Signs: Vital Signs Temp Pulse Resp BP Pulse Ox 37.3 C H 106 H 18 151/97 H 97 08/18/21 09:00 08/18/21 10:08 08/18/21 10:08 08/18/21 09:00 08/18/21 09:36 Oxygen Flow Rate (L/min) 4 Oxygen Delivery Method Nasal Cannula Weight: 89.1 kg Body Mass Index (BMI) 29.0 Intake & Output: Intake and Output for Last 24 Hours 08/16/21 08/17/21 08/18/21 23:59 23:59 23:59 Intake Total 16.75 / 16.75 2928.76 / 3251.06 1294.90 / 1294.90 Output Total 1400 / 1530 585 / 585 Balance 16.75 / 16.75 1528.76 / 1721.06 709.90 / 709.90 Medical Nutrition Assessment Dietitian: Malnutrition Criteria Met Start: 08/18/21 09:52 Freq: Status: Active Protocol: Document 08/18/21 09:52 ELIANE (Rec: 08/18/21 09:52 [id number]) Nutrition Malnutrition Evidence of Malnutrition Exists Yes Malnutrition (severe): Acute Illness/Injury Evidenced By Suboptimal Energy Intake ( Severe),Weight Loss (Severe) Clinical Problem Acute Disease or Injury Related Malnutrition Etiology related multiple episodes COPD exac / respiratory failure and 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 Will provide 4 oz w/ vanilla ensure enlive w/ medpass tid Lab / Micro Data Result Diagrams: 08/18/21 04:18 08/18/21 04:18 Labs: Laboratory Results - last 24 hr 08/17/21 10:50: Troponin I High Sens 346 H* 08/17/21 16:15: Troponin I High Sens 296 H* 08/18/21 04:18: Triglycerides 1009 H, Cholesterol 226 H, LDL Cholesterol TNP, VLDL Cholesterol TNP, HDL Cholesterol 36 L 08/18/21 04:18: WBC 10.7, RBC 3.50 L, Hgb 10.6 L, Hct 33.8 L, MCV 96.6 H, MCH 30.3, MCHC 31.4 L, RDW Std Deviation 52.8 H, RDW Coeff of Imelda 15.0 H, Plt Count 164, MPV 11.1, Immature Gran % (Auto) 2.200 H, Neut % (Auto) 92.3 H, Lymph % (Auto) 1.9 L, [place] % (Auto) 3.5, Eos % (Auto) 0.0, Baso % (Auto) 0.1, Absolute Neuts (auto) 9.9 H, Absolute Lymphs (auto) 0.20 L, Nucleated RBC % 0.5, Differential Comment SCANNED 08/18/21 04:18: Sodium 135 L, Potassium 3.5, Chloride 91 L, Carbon Dioxide 35.0 H, Anion Gap 9, BUN 31 H, Creatinine 1.14, Estim Creat Clear Calc 68.33, Est GFR (MDRD) Af Amer 85, Est GFR (MDRD) Non-Af 70, BUN/Creatinine Ratio 27.2 H, Glucose 342 H, Calcium 8.3 L, Magnesium 2.1 08/18/21 04:18: Phosphorus 2.4 L Micro: Microbiology 08/16/21 21:23 Sputum, Induced/Lukens Gram Stain - Final 08/16/21 21:23 Sputum, Induced/Lukens Respiratory Culture - Preliminary Gram negative abdulkadir 08/16/21 21:20 Urine Catheter - Brown Urine Culture - Preliminary Culture exhibits no growth. 08/16/21 22:30 Blood Culture (Wb) - Other Blood Culture - Preliminary ABG Data ABG results: ABG 08/18/21 07:19 Specimen Type ART Sample Site L Radial pH 7.45 Bicarbonate Actual 33.2 H Total CO2 35 Base Excess 9 H O2 Saturation 92 L O2 % 30 ABG pCO2 47.5 H ABG pO2 62 L Rhythm Strip Rhythm Strip: Sinus Tach Rate: 120 Ectopy: None Physical Exam Const alert and no apparent distress Resp normal respiratory effort, no retractions, no use of accessory muscles and clear to auscultation bilaterally Resp Narrative: diminished Cardio regular rate, regular rhythm, S1 normal heart sound and S2 normal heart sound GI normal to inspection, nondistended, normoactive bowel sounds and soft to palpation Extremity normal to inspection and no clubbing, cyanosis or edema Skin no rashes or lesions noted Neuro Sensorium / Orientation: awake and alert Assessment & Plan Assessment/Plan (1) Acute on chronic respiratory failure with hypoxia and hypercapnia: (2) Acute exacerbation of chronic obstructive pulmonary disease: (3) Bacteremia: (4) NSTEMI, initial episode of care: PLAN: This 56-year-old gentleman was admitted with severe respiratory distress, lethargy with history of lung cancer, emphysema and chronic hypoxic respiratory failure on 4 L of home oxygen. Patient was immediately intubated in the ED. Patient was last admitted on 06/27/2021 under similar circumstances of unresponsiveness, respiratory failure and nonadherence to CPAP with history of RADHA. At that time EMS found end-tidal CO2 at 140 1. Acute on chronic respiratory failure with hypoxia and hypercapnia * improving * secondary to COPD exacerbation with concern of possible aspiration but also non-compliance with Trilogy and polypharmacy * Patient was intubated in ED at that time was noticed food in the back of her throat therefore concern of aspiration. Patient had hypotension and therefore a right subclavian CVC catheter inserted which on x-ray showed going to the right IJ therefore subsequently was repositioned to SVC. * Patient is on bronchodilator, IV Solu-Medrol. On Unasyn. * Patient is being comanaged with the hvac engineering technician. * Extubated 08/18 2. AECOPD * improving * continue methylpred and BDs 3. Acute encephalopathy * most likely due to CO2 retention/metabolic/opioid/polypharmacy: We will review opioid medication after extubation. * Reviewed OARRS: pt receives methadone, hydromorphone and methylphenidate at home from Lisette Gilbert and Yoshi Knutson. Has not received gabapentin since 06/18/21. * I called the [facility] in [place], where he receives these scripts, I was provided t he number [phone], Medical Care at Home. 4. NSTEMI * likely due to demand ischemia * cardiology following. * on ASA and atorvastatin * follow 2d echo 5. Hypophosphatemia: * replace as needed 6. Lung cancer: Patient has history of lung cancer unclear about the staging and follow-up. * Unsure as to what stage or kind he does not have any records of this hospital prior to 06/27/2021 7. Possible heart failure, exact type, class in etiology unclear, elevated troponin 1 time: Patient had one-time troponin 131. Most likely type II CO from demand ischemia. Cycle troponins. 2D echo is ordered. At home, patient on furosemide 60 mg p.o. twice daily. Currently on hold, resume furosemide once hemodynamics permits. Currently blood pressure on lower side 103/71. 8. Stage III CKDa: Patient admitted with creatinine 1.34. BUN 27, creatinine 1.2. Estimated creatinine clearance 64 mL/min. BUN/creatinine 22. Monitor kidney function. 6.. Hypothyroidism, chronic pain syndrome: TSH when patient is on baseline, not now. 7. VTE prophylaxis: Lovenox Greater than 50 minutes of which greater than 50% of the time was counseling the patient about his respiratory failure and attmepting to find out reasoning from the number provided by [facility] in [place]. Currently on hold. Charges/Coding Visit Charges Inpatient E&M: 06166 Subs Hosp L3
--- NOTE | 2021-08-18 11:40 | CASEMGMT ---
RN CRUZ Face to Face with patient for initial transition planning/care coordination assessment. RN CM introduced self and role at [facility]. Patient sitting in chair, alert and oriented. Patient willing to participate in assessment and is able to answer all questions appropriately. Care providers, pharmacy, and demographics verified. Patient wishes to discharge home with possible HHC if needed. Patient states he has no further needs or concerns at this time. CM to follow for discharge planning needs that may arise. PCP: Marito Specialists: Sue automation tech Preferred Pharmacy: [facility] Insurance: [facility] Prescription Benefit: yes Living Will/HPOA: none LNOK: Living Arrangements: Patient lives with in a single story home with 1 step and grab bar to enter. Patient states he is independent at home for self care. Transportation: self, DME/HHC: Patient states he has shower chair, BSC, raised toilet, bipap, nebulizer, pulse ox, and home oxygen at 4lpm through [facility] with portability. Patient states he is active with [facility]. No previous HHC or SNF. Disposition Plan: Patient to discharge home with family support and follow-up plans in place. Will monitor for HHC pending progress with therapy. Gladys SCHILLING, RN, CM
[2021-08-18] MEDS: Methylphenidate HCl 5 MG Tablet PO (12:16)
[2021-08-18 16:16] LABS: Bedside Glucose 300 mg/dL (74-106)
--- NOTE | 2021-08-18 16:28 | EKG12_ITS ---
Test Reason : HIGH HR Blood Pressure : / mmHG Vent. Rate : 118 BPM Atrial Rate : 118 BPM P-R Int : 116 ms QRS Dur : 074 ms QT Int : 304 ms P-R-T Axes : 061 043 143 degrees QTc Int : 426 ms Sinus tachycardia Low voltage QRS ST & T wave abnormality, consider anterolateral ischemia Abnormal ECG Confirmed by EUGENIA WOOD, MALLY ([id number]), editor sound OMAR STEINBERG ([id number]) on 08/20/2021 10:06:50 AM Referred By: MARIELA Confirmed By:MALLY BELLO MD
[2021-08-18 16:30] LABS: Bedside Glucose 356 mg/dL (74-106)
[2021-08-18] MEDS: Metoprolol Tartrate 25 MG Tablet PO (16:50)
[2021-08-18] MEDS: HYDROmorphone 2 MG TABLET PO (18:07)
[2021-08-18] MEDS: Atorvastatin Calcium 40 MG Tablet PO (21:07)
[2021-08-18 21:26] LABS: Bedside Glucose 199 mg/dL (74-106)
[2021-08-19] VITALS (32 sets, daily range): BP systolic 116–165; BP diastolic 73–105; PULSE 84–131; RESP 12–23; TEMP 36.6–37.2; O2SAT 84–100
[2021-08-19] MEDS: HYDROmorphone 2 MG TABLET PO (02:38)
[2021-08-19 03:20] LABS: Hematocrit 32.9 % (40-54); Hemoglobin 10.6 g/dL (13.0-16.5); Mean Corp Hgb Conc 32.2 g/dL (32-36); Mean Corpuscular Hgb 30.5 pg (27.0-32.0); Mean Corpuscular Volume 94.5 fL (80-94); Mean Platelet Vol. 10.5 fl (6.2-12.0); POSITIVE COUNT YES; POSITIVE DIFFERENTIAL YES; POSITIVE MORPHOLOGY YES; Platelet Count 177 K/mm3 (150-450); RBC Distribution Width CV 15.1 % (11.6-14.6); RBC Distribution Width SD 51.6 fl (35.1-43.9); Red Blood Count 3.48 M/mm3 (4.6-6.2); White Blood Count 10.8 K/mm3 (4.4-11.0)
[2021-08-19 03:24] LABS: Differential Indicated MANUAL DIFF
[2021-08-19 03:47] LABS: Lymphocyte 0 % (19-41); Metamyelocyte 1 % (0-1); Monocyte 2 % (0-10); Myelocyte 1 % (0-0); Neutrophil-Band 1 % (0-5); Neutrophil-Segmented 95 % (47-70); Platelet Estimate ADEQUATE (ADEQ); Total Cells Counted 100 (MANUAL DIFF)
[2021-08-19 03:48] LABS: Absolute Neutrophil Count 10.4 X10^3/uL (2.0-7.7); Neutrophil # 10.38 X10^3/uL (2.7-7.7); Red Cell Morphology NORM C+C NORMAL (NORM C&C)
[2021-08-19 04:16] LABS: Anion Gap 6 (5-15); BUN 30 mg/dL (7-18); BUN/Creat Ratio 29.4 RATIO (10-20); Calcium,Total 8.6 mg/dL (8.5-10.1); Chloride 95 mmol/L (98-107); Creatinine, Serum 1.02 mg/dL (0.70-1.30); EST Glomerular Filtration Rate 80 mL/min (>60); Est Glom Filt Rate - Afr Amer 96 mL/min (>60); Estimated Creatinine Clearance 76.37 ml/min; Glucose 330 mg/dL (74-106); Sodium Level 137 mmol/L (136-145)
--- NOTE | 2021-08-19 04:50 | CPS ---
pt had a desat period increased fio2 temporarily.
[2021-08-19] MEDS: Levothyroxine 175 MCG Tablet PO (05:32)
[2021-08-19] MEDS: Insulin Lispro 100 UNIT/ML INSULN.PEN SC ×4 (06:27→22:11)
--- NOTE | 2021-08-19 06:36 | PCM.PN.INT ---
Assessment & Plan Assessment/Plan (1) Acute on chronic respiratory failure with hypoxia and hypercapnia: PLAN: RECOMMENDATIONS: 1. Titrate supplemental oxygen to maintain saturations between 90 and 94%. BiPAP with sleep. 2. Continue empiric antimicrobials pending culture data. 3. Continue scheduled bronchodilators. Transition to p.o. steroids to complete a 5-day burst 4. Increase activity as tolerated. 5. Continue appropriate DVT and GI prophylaxis. Add Lantus 6. Okay to leave the intensive care unit IMPRESSIONS: 1. Acute on chronic combined respiratory failure The patient has a reported history of COPD of unclear severity along with chronic hypoxemic respiratory failure. His compliance with outpatient prescribed medical therapy is questionable. No definitive pulmonary infectious etiology has been identified. Therefore, it is certainly plausible that his noncompliance led to his exacerbation. Alternatively, there is also the possibility that the patient may have aspirated in the setting of being found encephalopathic, which is likely secondary to chronic opiate utilization and limited respiratory reserve. Patient successfully extubated yesterday. Patient appears to be approaching baseline. Continue to wean supplemental oxygen as tolerated. We will transition to p.o. prednisone to complete a 5-day burst. Continue BiPAP with sleep. 2. Encephalopathy Appears improved. Likely secondary to CO2 retention in the setting of opiate medication utilization. The patient's utilization of home opiate medications will need to be reviewed after he has been liberated from invasive mechanical ventilatory support. 3. SVT Patient with significant SVT, likely as a compensation for respiratory status. We will continue to titrate up beta-eli as tolerated. Cardiology has been following. Await their recommendations. 4. Chronic kidney disease/history of lung cancer/hypothyroidism/chronic pain syndrome Complicates care, management, recovery and prognosis. The patient's lung cancer history is a bit unclear. It is not known what type or what stage his lung cancer was. This will need to be clarified further with the patient and his family. Patient is a very poor historian. Subjective Subjective Patient did okay overnight. Patient did have some issues with compliance with BiPAP therapy and tachycardia with ambulation. Beta-eli was increased with improvement in heart rates. Patient subjectively feels slightly improved compared to yesterday. Patient continues to have a cough that is intermittently productive. Patient has been tolerating 2 L nasal cannula. Objective Data Objective Data Vital Signs: Vital Signs Temp Pulse Resp BP Pulse Ox 37.1 C 91 14 118/87 H 100 08/19/21 04:00 08/19/21 05:00 08/19/21 05:00 08/19/21 05:00 08/19/21 05:00 Oxygen Flow Rate (L/min) 25 Oxygen Delivery Method Bi-pap Weight: 89.1 kg Body Mass Index (BMI) 29.0 Intake & Output: Intake and Output for Last 24 Hours 08/17/21 08/18/21 08/19/21 23:59 23:59 23:59 Intake Total 2928.76 / 3251.06 2069.65 / 2269.65 712 / 712 Output Total 1400 / 1530 1535 / 1535 400 / 400 Balance 1528.76 / 1721.06 534.65 / 734.65 312 / 312 Medical Nutrition Assessment Dietitian: Malnutrition Criteria Met Start: 08/18/21 09:52 Freq: Status: Active Protocol: Document 08/18/21 09:52 ELIANE (Rec: 08/18/21 09:[address] 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 Will provide 4 oz w/ vanilla ensure enlive w/ medpass tid Lab / Micro Data Result Diagrams: 08/19/21 03:15 08/19/21 03:15 Labs: Laboratory Results - last 24 hr 08/18/21 12:15: POC Glucose 300 H 08/18/21 16:11: POC Glucose 356 H 08/18/21 21:15: POC Glucose 199 H 08/19/21 03:15: WBC 10.8, RBC 3.48 L, Hgb 10.6 L, Hct 32.9 L, MCV 94.5 H, MCH 30.5, MCHC 32.2, RDW Std Deviation 51.6 H, RDW Coeff of Imelda 15.1 H, Plt Count 177, MPV 10.5, Neut % (Auto) Not Reportable, Absolute Neuts (auto) 10.4 H, Absolute Lymphs (auto) 0.00 L, Total Counted 100, Neutrophils % (Manual) 95 H, Band Neutrophils % 1, Lymphocytes % (Manual) 0 L, Monocytes % (Manual) 2, Metamyelocytes % 1, Myelocytes % 1 H, Diff Path Review August, Platelet Estimate ADEQUATE, RBC Morphology NORM C+C 08/19/21 03:15: Sodium 137, Potassium 4.0, Chloride 95 L, Carbon Dioxide 36.0 H, Anion Gap 6, BUN 30 H, Creatinine 1.02, Estim Creat Clear Calc 76.37, Est GFR (MDRD) Af Amer 96, Est GFR (MDRD) Non-Af 80, BUN/Creatinine Ratio 29.4 H, Glucose 330 H, Calcium 8.6 Micro: Microbiology 08/16/21 21:23 Sputum, Induced/Lukens Gram Stain - Final 08/16/21 21:23 Sputum, Induced/Lukens Respiratory Culture - Preliminary Gram negative abdulkadir 08/16/21 21:20 Urine Catheter - Brown Urine Culture - Preliminary Culture exhibits no growth. 08/16/21 22:30 Blood Culture (Wb) - Other Blood Culture - Preliminary ABG Data ABG results: ABG 08/18/21 07:19 Specimen Type ART Sample Site L Radial pH 7.45 Bicarbonate Actual 33.2 H Total CO2 35 Base Excess 9 H O2 Saturation 92 L O2 % 30 ABG pCO2 47.5 H ABG pO2 62 L Radiography Diagnostic Testing: Radiology Impression Echocardiogram 08/18/21 05:55 Interpretation Summary The study was technically difficult. Contrast injection was performed. Based upon the 2D echocardiographic and contrast enhanced images obtained there appears to be grossly normal left ventricular size, wall motion, and systolic function. The estimated ejection fraction is 65 %. Trivial mitral valve insufficiency. Trivial tricuspid valve insufficiency. Trivial aortic valve insufficiency. Trivial pericardial effusion. There are no echocardiographic indications of cardiac tamponade. Unable to estimate RV systolic pressure/pulmonary artery pressure due to technically difficult study. Transmitral doppler flow suggestive of impaired relaxation of left ventricle Ordering Physician: Gal Browning Referring Physician: Sergio Devi Performed By: Natalie Knott RDCS Rhythm Strip Rhythm Strip: Sinus Tach Rate: 120 Ectopy: None Physical Exam Const no apparent distress General Appearance: intubated and patient mechanically ventilated HEENT normocephalic and head/scalp atraumatic Mouth: endotracheal tube in place and OG tube in place Eyes PERRL and conjunctivae normal Neck supple General: trachea midline and CVC in place Chest Chest Narrative: Increased AP diameter Chest: symmetrical chest wall rise; Negative for crepitus Resp Resp Narrative: Improved wheezing. Still with prolonged exhalation Auscultation: diminished lung sounds; Negative for rales or rhonchi Cardio regular rate and regular rhythm GI normal to inspection, nondistended, normoactive bowel sounds Extremity no clubbing, cyanosis or edema Skin no rashes or lesions noted Neuro Sensorium / Orientation: sedated on vent Charges/Coding Visit Charges Inpatient E&M: 82244 Subs Hosp L3
[2021-08-19 07:00] LABS: Bedside Glucose 286 mg/dL (74-106)
[2021-08-19] MEDS: Ipratropium/Albuterol Sulfate 3 ML AMPUL.NEB INHALATION ×3 (07:12→18:35)
[2021-08-19] MEDS: predniSONE 20 MG Tablet 40 MG PO (09:08)
[2021-08-19] MEDS: Smz/Tmp Ds Tablet 1 TABLET PO ×2 (09:08→16:23)
[2021-08-19] MEDS: Aspirin 81 MG TAB.CHEW PO (09:08)
[2021-08-19] MEDS: Metoprolol Tartrate 50 MG Tablet PO (09:09)
[2021-08-19] MEDS: Methylphenidate HCl 5 MG Tablet PO ×2 (09:14→16:27)
[2021-08-19] MEDS: Famotidine 20 MG Tablet PO (09:14)
[2021-08-19] MEDS: Methadone 10 MG Tablet PO ×2 (09:15→22:38)
[2021-08-19] MEDS: Enoxaparin 40 MG/0.4 ML Syringe SC (09:18)
[2021-08-19] MEDS: Insulin Glargine-YFGN 100 UNIT/ML Pen 20 UNIT SC (09:20)
--- NOTE | 2021-08-19 10:12 | PN.HOSP_ITS ---
Subjective Subjective Feels well. Denies any issues overnight. Says his trilogy machine at home was converted to BiPAP, which he says he tolerates much better, though there were compliance issues overnight. Objective Data Objective Data Vital Signs: Vital Signs Temp Pulse Resp BP Pulse Ox 37.2 C 127 H 18 160/90 H 99 08/19/21 07:00 08/19/21 09:09 08/19/21 08:00 08/19/21 09:09 08/19/21 08:00 Oxygen Flow Rate (L/min) 2 Oxygen Delivery Method Nasal Cannula Weight: 89.1 kg Body Mass Index (BMI) 29.0 Intake & Output: Intake and Output for Last 24 Hours 08/17/21 08/18/21 08/19/21 23:59 23:59 23:59 Intake Total 2928.76 / 3251.06 2069.65 / 2269.65 712 / 712 Output Total 1400 / 1530 1535 / 1535 600 / 600 Balance 1528.76 / 1721.06 534.65 / 734.65 112 / 112 Medical Nutrition Assessment Dietitian: Malnutrition Criteria Met Start: 08/18/21 09:52 Freq: Status: Active Protocol: Document 08/18/21 09:52 ELIANE (Rec: 08/18/21 09:52 [facility] [id number]) Nutrition Malnutrition Evidence of Malnutrition Exists Yes Malnutrition (severe): Acute Illness/Injury Evidenced By Suboptimal Energy Intake ( Severe),Weight Loss (Severe) Clinical Problem Acute Disease or Injury Related Malnutrition Etiology related multiple episodes COPD exac / respiratory failure and 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 Will provide 4 oz w/ vanilla ensure enlive w/ medpass tid Lab / Micro Data Result Diagrams: 08/19/21 03:15 08/19/21 03:15 Labs: Laboratory Results - last 24 hr 08/18/21 12:15: POC Glucose 300 H 08/18/21 16:11: POC Glucose 356 H 08/18/21 21:15: POC Glucose 199 H 08/19/21 03:15: WBC 10.8, RBC 3.48 L, Hgb 10.6 L, Hct 32.9 L, MCV 94.5 H, MCH 30.5, MCHC 32.2, RDW Std Deviation 51.6 H, RDW Coeff of Imelda 15.1 H, Plt Count 177, MPV 10.5, Neut % (Auto) Not Reportable, Absolute Neuts (auto) 10.4 H, Absolute Lymphs (auto) 0.00 L, Total Counted 100, Neutrophils % (Manual) 95 H, Band Neutrophils % 1, Lymphocytes % (Manual) 0 L, Monocytes % (Manual) 2, Metamyelocytes % 1, Myelocytes % 1 H, Diff Path Review August, Platelet Estimate ADEQUATE, RBC Morphology NORM C+C 08/19/21 03:15: Sodium 137, Potassium 4.0, Chloride 95 L, Carbon Dioxide 36.0 H, Anion Gap 6, BUN 30 H, Creatinine 1.02, Estim Creat Clear Calc 76.37, Est GFR (MDRD) Af Amer 96, Est GFR (MDRD) Non-Af 80, BUN/Creatinine Ratio 29.4 H, Glucose 330 H, Calcium 8.6 08/19/21 06:26: POC Glucose 286 H Micro: Microbiology 08/16/21 22:30 Blood Culture (Wb) - Other Blood Culture - Preliminary Coag Negative Staph 08/16/21 21:23 Sputum, Induced/Lukens Gram Stain - Final 08/16/21 21:23 Sputum, Induced/Lukens Respiratory Culture - Final Stenotrophomonas maltophilia 08/16/21 22:32 Blood Culture (Wb) - Catheter Blood Culture - Preliminary No growth in 48 hours. 08/16/21 21:20 Urine Catheter - Brown Urine Culture - Final Culture exhibits no growth. Radiography Diagnostic Testing: Radiology Impression Echocardiogram 08/18/21 05:55 Interpretation Summary The study was technically difficult. Contrast injection was performed. Based upon the 2D echocardiographic and contrast enhanced images obtained there appears to be grossly normal left ventricular size, wall motion, and systolic function. The estimated ejection fraction is 65 %. Trivial mitral valve insufficiency. Trivial tricuspid valve insufficiency. Trivial aortic valve insufficiency. Trivial pericardial effusion. There are no echocardiographic indications of cardiac tamponade. Unable to estimate RV systolic pressure/pulmonary artery pressure due to technically difficult study. Transmitral doppler flow suggestive of impaired relaxation of left ventricle Ordering Physician: Gal Browning Referring Physician: Sergio Devi Performed By: Natalie Knott RDCS Rhythm Strip Rhythm Strip: Sinus Tach Rate: 120 Ectopy: None Physical Exam Const alert and no apparent distress HEENT head/scalp atraumatic and moist oral mucous membranes Head and Scalp: normocephalic Resp normal respiratory effort and no retractions Resp Narrative: diminished Cardio regular rate, regular rhythm, S1 normal heart sound and S2 normal heart sound GI normal to inspection, nondistended, normoactive bowel sounds Neuro Sensorium / Orientation: awake and alert Assessment & Plan Assessment/Plan (1) Acute on chronic respiratory failure with hypoxia and hypercapnia: (2) Acute exacerbation of chronic obstructive pulmonary disease: (3) Bacteremia: (4) NSTEMI, initial episode of care: PLAN: This 56-year-old gentleman was admitted with severe respiratory distress, lethargy with history of lung cancer, emphysema and chronic hypoxic respiratory failure on 4 L of home oxygen. Patient was immediately intubated in the ED. Patient was last admitted on 06/27/2021 under similar circumstances of unresponsiveness, respiratory failure and nonadherence to CPAP with history of RADHA. At that time EMS found end-tidal CO2 at 140 1. Acute on chronic respiratory failure with hypoxia and hypercapnia * improving * secondary to COPD exacerbation, Stenotrophomonas pneumonia with concern of possible aspiration but also non-compliance with Trilogy and polypharmacy * Patient was intubated in ED at that time was noticed food in the back of her t hroat therefore concern of aspiration. Patient had hypotension and therefore a right subclavian CVC catheter inserted which on x-ray showed going to the right IJ therefore subsequently was repositioned to SVC. * Swithed to prednisone burst and Bactrim. * Extubated 08/18 * Expressed the importance of compliance with BiPAP at home. He noted that he was technically compliant by using the Trilogy machine at least 4 hours/night. I expressed him the importance of using for his health, not based on the insurance-based minimum. Hopefully, with converting his Triology to BiPAP, he will have better compliance. The patient states he will, but I remain skeptical. 2. AECOPD * improving * continue Prednisone and BDs 3. Stenotrophomonas pneumonia * switched to Bactrim. 4. Acute encephalopathy * resolved * most likely due to CO2 retention/metabolic/opioid/polypharmacy * Reviewed OARRS: pt receives methadone, hydromorphone and methylphenidate at home from Lisette Gilbert and Yoshi Knutson. Has not received gabapentin since 06/18/21. * I called the [facility] in [place], where he receives these scripts, I was provided the number for [facility]. I called twice on 08/18 and was on hold for 10 minutes both times. * Reviewed medications with patient, he takes methadone for chronic pain mgmt, but unable to be taken off completely because, according to him, of chronic opiate use preceding it. Also on hydromorphone for acute pain. He takes methylphenidate due to fatigue. He receives these medication though a palliative care program with these providers. 4. NSTEMI * likely due to demand ischemia * cardiology following. * on ASA and atorvastatin * EF 65%, trivial pericardial effusion, no tamponade 5. Hypophosphatemia: * replace as needed 6. Lung cancer: Patient has history of lung cancer unclear about the staging and follow-up. * Unsure as to what stage or kind he does not have any records of this hospital prior to 06/27/2021 7. Chronic HFpEF, * continue furosemide 8. Tachycardia * sinus tach * continue metoprolol succinate 9. Stage III CKDa: Patient admitted with creatinine 1.34. BUN 27, creatinine 1.2. Estimated creatinine clearance 64 mL/min. BUN/creatinine 22. Monitor kidney function. 10. Hypothyroidism, chronic pain syndrome: TSH when patient is on baseline, not now. 1. VTE prophylaxis: Lovenox Greater than 35 minutes of which greater than 50% of the time was counseling the patient about his respiratory failure and compliance with BiPAP. Charges/Coding Visit Charges Inpatient E&M: 31017 [facility] Hosp L3
[2021-08-19 11:00] LABS: Bedside Glucose 323 mg/dL (74-106)
[2021-08-19] MEDS: Furosemide 20 MG Tablet 60 MG PO ×2 (14:10→20:17)
[2021-08-19 14:27] LABS: Pathologist Review Reviewed
--- NOTE | 2021-08-19 15:57 | PN.CARD_ITS ---
Subjective Subjective Seen and evaluated today at bedside and discussed with the nursing staff at bedside at time of evaluation Sitting out in a chair extubated, no symptoms of chest pain reported Objective Data Vital Signs: Vital Signs Temp Pulse Resp BP Pulse Ox 98.1 F 115 H 23 H 159/91 H 97 08/19/21 12:00 08/19/21 12:00 08/19/21 12:00 08/19/21 12:00 08/19/21 12:00 Oxygen Flow Rate (L/min) 2 Oxygen Delivery Method Nasal Cannula Weight: 196 lb 6.91 oz Body Mass Index (BMI) 29.0 Intake & Output: Intake and Output for Last 24 Hours 08/17/21 08/18/21 08/19/21 23:59 23:59 23:59 Intake Total 2928.76 / 3251.06 2069.65 / 2269.65 1012 / 1012 Output Total 1400 / 1530 1535 / 1535 1400 / 1400 Balance 1528.76 / 1721.06 534.65 / 734.65 -388 / -388 Lab / Micro Data Result Diagrams: 08/19/21 03:15 08/19/21 03:15 Labs: Laboratory Results - last 24 hr 08/18/21 12:15: POC Glucose 300 H 08/18/21 16:11: POC Glucose 356 H 08/18/21 21:15: POC Glucose 199 H 08/19/21 03:15: WBC 10.8, RBC 3.48 L, Hgb 10.6 L, Hct 32.9 L, MCV 94.5 H, MCH 30.5, MCHC 32.2, RDW Std Deviation 51.6 H, RDW Coeff of Imelda 15.1 H, Plt Count 177, MPV 10.5, Neut % (Auto) Not Reportable, Absolute Neuts (auto) 10.4 H, Absolute Lymphs (auto) 0.00 L, Total Counted 100, Neutrophils % (Manual) 95 H, Band Neutrophils % 1, Lymphocytes % (Manual) 0 L, Monocytes % (Manual) 2, Metamyelocytes % 1, Myelocytes % 1 H, Diff Path Review Reviewed, Platelet Estimate ADEQUATE, RBC Morphology NORM C+C 08/19/21 03:15: Sodium 137, Potassium 4.0, Chloride 95 L, Carbon Dioxide 36.0 H, Anion Gap 6, BUN 30 H, Creatinine 1.02, Estim Creat Clear Calc 76.37, Est GFR (MDRD) Af Amer 96, Est GFR (MDRD) Non-Af 80, BUN/Creatinine Ratio 29.4 H, Glucose 330 H, Calcium 8.6 08/19/21 06:26: POC Glucose 286 H 08/19/21 10:54: POC Glucose 323 H Micro: Microbiology 08/16/21 22:30 Blood Culture (Wb) - Other Blood Culture - Preliminary Coag Negative Staph 08/16/21 21:23 Sputum, Induced/Lukens Gram Stain - Final 08/16/21 21:23 Sputum, Induced/Lukens Respiratory Culture - Final Stenotrophomonas maltophilia 08/16/21 22:32 Blood Culture (Wb) - Catheter Blood Culture - Preliminary No growth in 48 hours. 08/16/21 21:20 Urine Catheter - Brown Urine Culture - Final Culture exhibits no growth. Rhythm Strip Rhythm Strip: Sinus Tach Rate: 120 Ectopy: None Cardiology Labs/Tests 08/19/21 03:15: WBC 10.8, RBC 3.48 L, Hgb 10.6 L, Hct 32.9 L, MCV 94.5 H, MCH 30.5, MCHC 32.2, Plt Count 177, MPV 10.5, Neut % (Auto) Not Reportable, Absolute Neuts (auto) 10.4 H, Total Counted 100, Neutrophils % (Manual) 95 H, Band Neutrophils % 1, Lymphocytes % (Manual) 0 L, Monocytes % (Manual) 2, Metamyelocytes % 1, Myelocytes % 1 H 08/19/21 03:15: Sodium 137, Potassium 4.0, Chloride 95 L, Carbon Dioxide 36.0 H, Anion Gap 6, BUN 30 H, Creatinine 1.02, Est GFR (MDRD) Af Amer 96, Est GFR (MDRD) Non-Af 80, BUN/Creatinine Ratio 29.4 H, Glucose 330 H, Calcium 8.6 Rhythm: Normal sinus rhythm Physical Exam Narrative Patient alert orientated x3 Not in acute distress Cardiovascular exam cardiac cath technician showed normal sinus Card examination S1-S2 regular Chest examination diminished air entry bilateral with minimal basilar rales. Assessment & Plan Assessment/Plan (1) Acute on chronic respiratory failure with hypoxia and hypercapnia: (2) Acute exacerbation of chronic obstructive pulmonary disease: (3) Lung cancer: (4) Elevated troponin level: PLAN: This patient with history of acute on chronic combined respiratory failure. Patient also has history of SVT chronic renal disease with a history of lung cancer Cardiac auscultation requested because of mild elevation of high sensitive troponin Patient has been stable clinically Further cardiac evaluation during this admission with echocardiogram showed LV function is preserved No segmental wall motion abnormality noted. Cardiac care plan recommendations; 1. I discussed current treatment as well as the echocardiographic findings with the patient 2. Elevated cardiac biomarkers mild which is consistent with type II VA/demand myocardial ischemia 3. We will continue conservative treatment. 4. No further cardiac evaluation will be required he can be followed up as an outpatient with the Lexiscan sestamibi myocardial fusion study which can be set up as an outpatient. I explained the cardiac care plan and the current finding of the echocardiogram and the mildly elevated troponin to the patient is stable clinically he does not have any active chest pain and we will continue medical treatment.
[2021-08-19 16:25] LABS: Bedside Glucose 237 mg/dL (74-106)
--- NOTE | 2021-08-19 18:32 | NURSING ---
report called to [facility] for transer to 116, transferred per chair with belongings
[2021-08-19] MEDS: Albuterol 2.5 MG/3 ML VIAL.NEB. INHALATION (21:51)
[2021-08-19] MEDS: Atorvastatin Calcium 40 MG Tablet PO (22:11)
[2021-08-19 22:25] LABS: Bedside Glucose 408 mg/dL (74-106)
[2021-08-20] VITALS (11 sets, daily range): BP systolic 114–144; BP diastolic 83–94; PULSE 100–128; RESP 14–20; TEMP 36.1–36.9; O2SAT 91–99
[2021-08-20] MEDS: Ipratropium/Albuterol Sulfate 3 ML AMPUL.NEB INHALATION ×3 (02:02→13:52)
[2021-08-20] MEDS: Levothyroxine 175 MCG Tablet PO (05:29)
[2021-08-20 06:03] LABS: Hematocrit 37.9 % (40-54); Hemoglobin 12.1 g/dL (13.0-16.5); Mean Corp Hgb Conc 31.9 g/dL (32-36); Mean Corpuscular Hgb 30.3 pg (27.0-32.0); Mean Corpuscular Volume 94.8 fL (80-94); Mean Platelet Vol. 10.9 fl (6.2-12.0); POSITIVE COUNT YES; POSITIVE DIFFERENTIAL YES; POSITIVE MORPHOLOGY YES; Platelet Count 247 K/mm3 (150-450); RBC Distribution Width SD 51.5 fl (35.1-43.9)
[2021-08-20 06:13] LABS: Differential Indicated MANUAL DIFF
[2021-08-20 06:34] LABS: Corrected WBC 10.1 K/mm3 (4.4-11.0); Lymphocyte 5 % (19-41); Metamyelocyte 1 % (0-1); Myelocyte 3 % (0-0); Neutrophil-Band 1 % (0-5); Neutrophil-Segmented 80 % (47-70); Nucleated Red Bld Cells,Manual 5 % (0-5); Total Cells Counted 100 (MANUAL DIFF)
[2021-08-20 06:35] LABS: Eosinophil 1 % (0-5); Monocyte 9 % (0-10); Platelet Estimate ADEQUATE (ADEQ)
[2021-08-20 06:36] LABS: Absolute Neutrophil Count 8.6 X10^3/uL (2.0-7.7); Neutrophil # 8.57 X10^3/uL (2.7-7.7); Polychromasia RARE; Red Cell Morphology N CYTIC NORMAL (NORM C&C)
[2021-08-20 06:37] LABS: Absolute Lymphocyte Count 0.53 X10^3/uL (0.83-4.51); Lymphocyte # 0.53 X10^3/ul (0.83-4.51)
[2021-08-20 06:43] LABS: Anion Gap 12 (5-15); BUN 32 mg/dL (7-18); BUN/Creat Ratio 24.2 RATIO (10-20); Calcium,Total 8.6 mg/dL (8.5-10.1); Chloride 89 mmol/L (98-107); Creatinine, Serum 1.32 mg/dL (0.70-1.30); EST Glomerular Filtration Rate 59 mL/min (>60); Est Glom Filt Rate - Afr Amer 72 mL/min (>60); Estimated Creatinine Clearance 59.02 ml/min; Glucose 180 mg/dL (74-106); Potassium 3.6 mmol/L (3.5-5.1); Sodium Level 135 mmol/L (136-145)
[2021-08-20] MEDS: Insulin Lispro 100 UNIT/ML INSULN.PEN SC ×2 (06:55→11:39)
[2021-08-20 07:00] LABS: Bedside Glucose 220 mg/dL (74-106)
[2021-08-20] MEDS: Aspirin 81 MG TAB.CHEW PO (08:17)
[2021-08-20] MEDS: Smz/Tmp Ds Tablet 1 TABLET PO (08:17)
[2021-08-20] MEDS: predniSONE 20 MG Tablet 40 MG PO (08:17)
--- NOTE | 2021-08-20 08:20 | PCM.PN.INT ---
Assessment & Plan Assessment/Plan (1) Acute on chronic respiratory failure with hypoxia and hypercapnia: PLAN: RECOMMENDATIONS: 1. Titrate supplemental oxygen to maintain saturations between 90 and 94%. Continue to encourage BiPAP with sleep. 2. Patient will need to complete a total of 7 days of Bactrim therapy 3. Continue scheduled bronchodilators. Continue p.o. steroids to complete a 5-day burst 4. Increase activity as tolerated. 5. Continue appropriate DVT and GI prophylaxis. Add Lantus 6. Defer to cardiology on SVT IMPRESSIONS: 1. Acute on chronic combined respiratory failure The patient has a reported history of COPD of unclear severity along with chronic hypoxemic respiratory failure. His compliance with outpatient prescribed medical therapy is questionable. No definitive pulmonary infectious etiology has been identified. Therefore, it is certainly plausible that his noncompliance led to his exacerbation. Alternatively, there is also the possibility that the patient may have aspirated in the setting of being found encephalopathic, which is likely secondary to chronic opiate utilization and limited respiratory reserve. Patient successfully extubated and appears to be approaching baseline from a respiratory perspective. Continue to wean supplemental oxygen as tolerated. The patient will need to complete prednisone 5-day burst. Continue BiPAP with ALL sleep. 2. Encephalopathy Appears improved. Likely secondary to CO2 retention in the setting of opiate medication utilization. The patient's utilization of home opiate medications will need to be reviewed after he has been liberated from invasive mechanical ventilatory support. 3. SVT Patient with significant SVT, likely as a compensation for respiratory status. We will continue to titrate up beta-eli as tolerated. Cardiology has been following. Await their recommendations. 4. Chronic kidney disease/history of lung cancer/hypothyroidism/chronic pain syndrome Complicates care, management, recovery and prognosis. The patient's lung cancer history is a bit unclear. It is not known what type or what stage his lung cancer was. This will need to be clarified further with the patient and his family. Patient is a very poor historian. Subjective Subjective Patient did okay overnight. Patient did not use BiPAP for much of the time while sleeping. However, oxygen is back down to his baseline. Patient has persistent tachycardia overnight. Patient does report some shortness of breath on exertion, but is requesting discharge. Objective Data Objective Data Vital Signs: Vital Signs Temp Pulse Resp BP Pulse Ox 36.9 C 113 H 17 135/85 H 99 08/20/21 03:00 08/20/21 07:00 08/20/21 03:54 08/20/21 03:00 08/20/21 03:54 Oxygen Flow Rate (L/min) 25 Oxygen Delivery Method Bi-pap Weight: 87.3 kg Body Mass Index (BMI) 29.0 Intake & Output: Intake and Output for Last 24 Hours 08/18/21 08/19/21 08/20/21 23:59 23:59 23:59 Intake Total 2069.65 / 2269.65 1672 / 1672 Output Total 1535 / 1535 2800 / 3500 1175 / 1175 Balance 534.65 / 734.65 -1128 / -1828 -1175 / -1175 Medical Nutrition Assessment Dietitian: Malnutrition Criteria Met Start: 08/18/21 09:52 Freq: Status: Active Protocol: Document 08/19/21 11:25 AG (Rec: 08/19/21 11:25 [id number]) Nutrition Malnutrition Evidence of Malnutrition Exists No Clinical Problem Acute Disease or Injury Related Malnutrition Etiology - Signs/Symptoms - Status Resolved Problem Altered Nutrient-Related Laboratory Values Etiology related to steroid administration Signs/Symptoms as evidenced by fasting blood glucose 330 Status Active Problem Recommendation Dietitian Recommendations/Changes continue regular no added salt diet and 120mL ensure enlive TID; will monitor need for supplement as PO intake appears improved at this time Lab / Micro Data Result Diagrams: 08/20/21 05:41 08/20/21 05:41 Labs: Laboratory Results - last 24 hr 08/19/21 03:15: Diff Path Review Reviewed 08/19/21 10:54: POC Glucose 323 H 08/19/21 16:16: POC Glucose 237 H 08/19/21 22:09: POC Glucose 408 H 08/20/21 05:41: WBC MECHANICAL ENGINEERING MANAGER, Corrected WBC 10.1, RBC 4.00 L, Hgb 12.1 L, Hct 37.9 L, MCV 94.8 H, MCH 30.3, MCHC 31.9 L, RDW Std Deviation 51.5 H, RDW Coeff of Imelda 15.0 H, Plt Count 247, MPV 10.9, Neut % (Auto) Not Reportable, Absolute Neuts (auto) 8.6 H, Absolute Lymphs (auto) 0.53 L, Total Counted 100, Neutrophils % (Manual) 80 H, Band Neutrophils % 1, Lymphocytes % (Manual) 5 L, Monocytes % (Manual) 9, Eosinophils % (Manual) 1, Metamyelocytes % 1, Myelocytes % 3 H, Nucleated RBCs/100 WBC 5, Diff Path Review May foll, Platelet Estimate ADEQUATE, RBC Morphology N CYTIC, Polychromasia RARE 08/20/21 05:41: Sodium 135 L, Potassium 3.6, Chloride 89 L, Carbon Dioxide 34.0 H, Anion Gap 12, BUN 32 H, Creatinine 1.32 H, Estim Creat Clear Calc 59.02, Est GFR (MDRD) Af Amer 72, Est GFR (MDRD) Non-Af 59 L, BUN/Creatinine Ratio 24.2 H, Glucose 180 H, Calcium 8.6 08/20/21 06:54: POC Glucose 220 H Micro: Microbiology 08/16/21 22:30 Blood Culture (Wb) - Other Blood Culture - Preliminary Staphylococcus epidermidis 08/16/21 21:23 Sputum, Induced/Lukens Gram Stain - Final 08/16/21 21:23 Sputum, Induced/Lukens Respiratory Culture - Final Stenotrophomonas maltophilia 08/16/21 22:32 Blood Culture (Wb) - Catheter Blood Culture - Preliminary No growth in 48 hours. 08/16/21 21:20 Urine Catheter - Brown Urine Culture - Final Culture exhibits no growth. Rhythm Strip Rhythm Strip: Sinus Tach Rate: 120 Ectopy: None Physical Exam Const alert and oriented x3 Constitutional Narrative: Mild conversational dyspnea General Appearance: appears older than stated age HEENT normocephalic and head/scalp atraumatic HEENT Narrative: Mallampati 3. Eyes PERRL and conjunctivae normal Neck supple General: trachea midline and CVC in place Chest Chest Narrative: Increased AP diameter Chest: symmetrical chest wall rise; Negative for crepitus Resp Resp Narrative: Continued wheezing with prolonged exhalation Auscultation: diminished lung sounds; Negative for rales or rhonchi Cardio regular rate and regular rhythm GI normal to inspection, nondistended, normoactive bowel sounds Extremity no clubbing, cyanosis or edema Skin no rashes or lesions noted Neuro oriented x3, CN's II-XII intact bilaterally, moves all extremities and no focal motor deficits Charges/Coding Visit Charges Inpatient E&M: 85745 Subs Hosp L3
[2021-08-20] MEDS: Methylphenidate HCl 5 MG Tablet PO (09:10)
[2021-08-20] MEDS: Methadone 10 MG Tablet PO (09:10)
[2021-08-20] MEDS: Furosemide 20 MG Tablet 60 MG PO (09:10)
[2021-08-20] MEDS: Enoxaparin 40 MG/0.4 ML Syringe SC (09:10)
[2021-08-20] MEDS: Metoprolol Tartrate 50 MG Tablet PO (09:10)
--- NOTE | 2021-08-20 10:13 | PN.HOSP_ITS ---
Subjective Subjective Breathing well. Used BiPAP most of the night. Objective Data Objective Data Vital Signs: Vital Signs Temp Pulse Resp BP Pulse Ox 36.1 C L 127 H 20 H 138/83 H 95 08/20/21 09:10 08/20/21 09:10 08/20/21 09:10 08/20/21 09:10 08/20/21 09:10 Oxygen Flow Rate (L/min) 1 Oxygen Delivery Method Nasal Cannula Weight: 87.3 kg Body Mass Index (BMI) 29.0 Intake & Output: Intake and Output for Last 24 Hours 08/18/21 08/19/21 08/20/21 23:59 23:59 23:59 Intake Total 2069.65 / 2269.65 1672 / 1672 Output Total 1535 / 1535 2800 / 3500 1175 / 1175 Balance 534.65 / 734.65 -1128 / -1828 -1175 / -1175 Medical Nutrition Assessment Dietitian: Malnutrition Criteria Met Start: 08/18/21 09:52 Freq: Status: Active Protocol: Document 08/19/21 11:25 AG (Rec: 08/19/21 11:25 [id number]) Nutrition Malnutrition Evidence of Malnutrition Exists No Clinical Problem Acute Disease or Injury Related Malnutrition Etiology - Signs/Symptoms - Status Resolved Problem Altered Nutrient-Related Laboratory Values Etiology related to steroid administration Signs/Symptoms as evidenced by fasting blood glucose 330 Status Active Problem Recommendation Dietitian Recommendations/Changes continue regular no added salt diet and 120mL ensure enlive TID; will monitor need for supplement as PO intake appears improved at this time Lab / Micro Data Result Diagrams: 08/20/21 05:41 08/20/21 05:41 Labs: Laboratory Results - last 24 hr 08/19/21 03:15: Diff Path Review Reviewed 08/19/21 10:54: POC Glucose 323 H 08/19/21 16:16: POC Glucose 237 H 08/19/21 22:09: POC Glucose 408 H 08/20/21 05:41: WBC DECORATING AND ASSEMBLY SUPERVISOR, Corrected WBC 10.1, RBC 4.00 L, Hgb 12.1 L, Hct 37.9 L, MCV 94.8 H, MCH 30.3, MCHC 31.9 L, RDW Std Deviation 51.5 H, RDW Coeff of Imelda 15.0 H, Plt Count 247, MPV 10.9, Neut % (Auto) Not Reportable, Absolute Neuts (auto) 8.6 H, Absolute Lymphs (auto) 0.53 L, Total Counted 100, Neutrophils % (Manual) 80 H, Band Neutrophils % 1, Lymphocytes % (Manual) 5 L, Monocytes % (Manual) 9, Eosinophils % (Manual) 1, Metamyelocytes % 1, Myelocytes % 3 H, Nucleated RBCs/100 WBC 5, Diff Path Review August, Platelet Estimate ADEQUATE, RBC Morphology N CYTIC, Polychromasia RARE 08/20/21 05:41: Sodium 135 L, Potassium 3.6, Chloride 89 L, Carbon Dioxide 34.0 H, Anion Gap 12, BUN 32 H, Creatinine 1.32 H, Estim Creat Clear Calc 59.02, Est GFR (MDRD) Af Amer 72, Est GFR (MDRD) Non-Af 59 L, BUN/Creatinine Ratio 24.2 H, Glucose 180 H, Calcium 8.6 08/20/21 06:54: POC Glucose 220 H Micro: Microbiology 08/16/21 22:30 Blood Culture (Wb) - Other Blood Culture - Preliminary Staphylococcus epidermidis 08/16/21 21:23 Sputum, Induced/Lukens Gram Stain - Final 08/16/21 21:23 Sputum, Induced/Lukens Respiratory Culture - Final Stenotrophomonas maltophilia 08/16/21 22:32 Blood Culture (Wb) - Catheter Blood Culture - Preliminary No growth in 48 hours. 08/16/21 21:20 Urine Catheter - Brown Urine Culture - Final Culture exhibits no growth. Rhythm Strip Rhythm Strip: Sinus Tach Rate: 120 Ectopy: None Physical Exam Const alert and no apparent distress Resp normal respiratory effort, no retractions, no use of accessory muscles and clear to auscultation bilaterally Cardio regular rate, regular rhythm, S1 normal heart sound and S2 normal heart sound GI normal to inspection, nondistended, normoactive bowel sounds, soft to palpation, non-tender and non-distended Assessment & Plan Assessment/Plan (1) Acute on chronic respiratory failure with hypoxia and hypercapnia: (2) Acute exacerbation of chronic obstructive pulmonary disease: (3) Bacteremia: (4) NSTEMI, initial episode of care: PLAN: This 56-year-old gentleman was admitted with severe respiratory distress, lethargy with history of lung cancer, emphysema and chronic hypoxic respiratory failure on 4 L of home oxygen. Patient was immediately intubated in the ED. Patient was last admitted on 06/27/2021 under similar circumstances of unresponsiveness, respiratory failure and nonadherence to CPAP with history of RADHA. At that time EMS found end-tidal CO2 at 140 1. Acute on chronic respiratory failure with hypoxia and hypercapnia * improving * secondary to COPD exacerbation, Stenotrophomonas pneumonia with concern of possible aspiration but also non-compliance with Trilogy and polypharmacy * Patient was intubated in ED at that time was noticed food in the back of her throat therefore concern of aspiration. Patient had hypotension and therefore a right subclavian CVC catheter inserted which on x-ray showed going to the right IJ therefore subsequently was repositioned to SVC. * Swithed to prednisone burst and Bactrim. * Extubated 08/18 * Expressed the importance of compliance with BiPAP at home. He noted that he was technically compliant by using the Trilogy machine at least 4 hours/night. I expressed him the importance of using for his health, not based on the insurance-based minimum. Hopefully, with converting his Triology to BiPAP, he will have better compliance. 2. AECOPD * improving * continue Prednisone and BDs 3. Stenotrophomonas pneumonia * switched to Bactrim. 4. Acute encephalopathy * resolved * most likely due to CO2 retention/metabolic/opioid/polypharmacy * Reviewed OARRS: pt receives methadone, hydromorphone and methylphenidate at home from Lisette Gilbert and Yoshi Knutson. Has not received gabapentin sin ce 06/18/21. * I called the [facility] in [place], where he receives these scripts, I was provided the number for [facility]. I called twice on 08/18 and was on hold for 10 minutes both times. * Reviewed medications with patient, he takes methadone for chronic pain mgmt, but unable to be taken off completely because, according to him, of chronic opiate use preceding it. Also on hydromorphone for acute pain. He takes methylphenidate due to fatigue. He receives these medication though a palliative care program with these providers. 4. NSTEMI * likely due to demand ischemia * cardiology following. * on ASA and atorvastatin * EF 65%, trivial pericardial effusion, no tamponade * outpt stress per cardiology 5. Hypophosphatemia: * replace as needed 6. Lung cancer: Patient has history of lung cancer unclear about the staging and follow-up. * Unsure as to what stage or kind he does not have any records of this hospital prior to 06/27/2021 7. Chronic HFpEF, * continue furosemide 8. Tachycardia * sinus tach * switch to metoprolol tartrate 50 BID. * cardiology following 9. Stage III CKDa: Patient admitted with creatinine 1.34. BUN 27, creatinine 1.2. Estimated creatinine clearance 64 mL/min. BUN/creatinine 22. Monitor kidney function. 10. Hypothyroidism, chronic pain syndrome: TSH when patient is on baseline, not now. 11. VTE prophylaxis: Lovenox Charges/Coding Visit Charges Inpatient E&M: 03871 Subs Hosp L2
[2021-08-20] MEDS: Insulin Glargine-YFGN 100 UNIT/ML Pen 20 UNIT SC (11:38)
[2021-08-20 13:43] LABS: Pathologist Review Reviewed
[2021-08-20 14:10] LABS: Bedside Glucose 338 mg/dL (74-106)
--- NOTE | 2021-08-20 14:37 | DCINST_ITS ---
Discharge Instructions Diet Discharge Diet: Low fat / Low cholesterol Activity Discharge Activity: Return to Normal Activity Dressing / Incision Call your doctor if you observe: Shortness of breath Follow Up Care Test Results: Test results from this visit will be discussed in further detail at your follow-up appointment, if applicable. Discharge Plan Admission Admit Date/Time: 08/16/21 22:45 Attending Provider: Herminio Ramirez Primary Care Provider: Sergio Devi Consulting Providers: Blanka Mccloud ; Brandan Dial ; Saad Elena ; America Lopez AGRICULTURAL EQUIPMENT OPERATOR Instructions Patient Instructions: Eating Out When You Have Diabetes, Diabetes: Sick-Day Plan, Diabetes: Living Your Life, Diabetes: Meal Planning, What Is a BPAP?, Using a BPAP Discharge Orders/Prescriptions Prescriptions: New atorvastatin 40 mg Tablet 40 mg PO QHS Qty: 30 RF: 0 aspirin 81 mg Tablet,Chewable 81 mg PO 0800 Qty: 0 RF: 0 prednisone 20 mg Tablet 40 mg PO BREAKFAST Qty: 2 RF: 0 metoprolol tartrate 50 mg Tablet 50 mg PO BID Qty: 60 RF: 0 sulfamethoxazole-trimethoprim 800-160 mg Tablet 1 tab PO BIDCM Qty: 8 RF: 0 metformin 500 mg tablet 500 mg PO BID Qty: 60 RF: 0 Continued levothyroxine 175 mcg tablet 175 mcg PO DAILY RF: 0 ipratropium-albuterol 0.5 mg-3 mg(2.5 mg base)/3 mL solution for nebulization 3 ml inhalation Q4H PRN PRN (Reason: SOB) RF: 0 methadone 10 mg tablet 10 mg PO BID RF: 0 methylphenidate HCl 5 mg tablet 5 mg PO BID RF: 0 hydromorphone 2 mg tablet 2 mg PO Q8 PRN (Reason: Pain) RF: 0 furosemide 20 mg tablet 60 mg PO BID RF: 0 Discontinued gabapentin 300 mg capsule 300 mg PO QHS RF: 0 Ear Drops (carbamide peroxide) 6.5 % drops 5 drp LEFT EAR DAILY 4 Days Qty: 15 RF: 0 metoprolol succinate 50 mg tablet extended release 24 hr 50 mg PO DAILY RF: 0 prednisone 20 mg tablet 20 mg PO DAILY RF: 0 Other Ambulatory Orders: Glucometer (Routine) Location: None Selected Ordered By: Dr. Herminio Ramirez Referrals / Follow Up: Sergio Devi MD [Primary Care Provider] - Within 2 Weeks Smooth Rogers MD [NON-STAFF] - Within 1 Month (or new see wheeler) Disposition Disposition (needs filled in before D/C Order can be placed): Home, Self Care
--- NOTE | 2021-08-20 14:39 | CASEMGMT ---
This RN CM to room and pt states that Dallin got his trilogy set up for bipap mode instead of NIV, as he prefers this(pt has not been wearing recently d/t same). Pt states settings were made by Dr. Devi, pt's aerial gunner superintendent. Call to Dallin to verify all and per rep, this has all been completed at this time. Pt states no need for any further therapy at discharge and pt states no further questions/concerns/needs at this time. SStaten BETHANY CM
--- NOTE | 2021-08-20 14:59 | PCM.DC.SUM ---
Providers Date of Admission: 08/16/21 Primary Care Physician: Dr. Sergio Devi MD Consultations 08/17/21 01:33 Consult: [facility] / Pulmonary Medicine Routine Consulting Provider: Pulmonary Medicine charles [place] Reason for Consult: COPD exacerbation with resp failure EMERGENT Consult: No Notified: Yes Date Notified: 08/16/21 Time Notified: 22:50 Method of Notification: Verbal 08/17/21 17:17 Consult: Cardiology Routine Consulting Provider: Blanka Mccloud Reason for Consult: elevated troponins EMERGENT Consult: No Notified: Yes Date Notified: 08/17/21 Time Notified: 17:17 Method of Notification: Text Comments:: Dr. Browning notified Reason For Visit: COPD EXACERBATION WITH RESP FAILURE Diagnosis Discharge Diagnosis (1) Acute on chronic respiratory failure with hypoxia and hypercapnia: Status: Chronic Code(s): J96.21 - Acute and chronic respiratory failure with hypoxia; J96.22 - Acute and chronic respiratory failure with hypercapnia (2) Acute exacerbation of chronic obstructive pulmonary disease: Status: Chronic Code(s): J44.1 - Chronic obstructive pulmonary disease with (acute) exacerbation (3) Bacteremia: Status: Acute Code(s): R78.81 - Bacteremia (4) NSTEMI, initial episode of care: Status: Acute Code(s): I21.4 - Non-ST elevation (NSTEMI) myocardial infarction Medications at Discharge Home Medications furosemide 60 mg PO BID 06/27/21 hydromorphone 2 mg PO Q8 PRN 06/27/21 ipratropium-albuterol 3 ml INHALATION Q4H PRN PRN 06/27/21 levothyroxine 175 mcg PO DAILY 06/27/21 methadone 10 mg PO BID 06/27/21 methylphenidate HCl 5 mg PO BID 06/27/21 aspirin 81 mg PO 0800 #0 tab 08/20/21 atorvastatin 40 mg PO QHS #30 tab 08/20/21 metformin 500 mg PO BID #60 tab 08/20/21 metoprolol tartrate 50 mg PO BID #60 tab 08/20/21 prednisone 40 mg PO BREAKFAST #2 tab 08/20/21 sulfamethoxazole-trimethoprim 1 tab PO BIDCM #8 tab 08/20/21 Hospital Course Operations None Procedures 2-D Echocardiogram and Central line placement Summary of Care Provided Minutes Spent on Discharge: 45 Hospital Course: 1. Acute on chronic respiratory failure with hypoxia and hypercapnia improving secondary to COPD exacerbation, Stenotrophomonas pneumonia with concern of possible aspiration but also non-compliance with Trilogy and polypharmacy Patient was intubated in ED at that time was noticed food in the back of her throat therefore concern of aspiration. Patient had hypotension and therefore a right subclavian CVC catheter inserted which on x-ray showed going to the right IJ therefore subsequently was repositioned to SVC. Swithed to prednisone burst and Bactrim. Extubated 08/18 Expressed the importance of compliance with BiPAP at home. He noted that he was technically compliant by using the Trilogy machine at least 4 hours/night. I expressed him the importance of using for his health, not based on the insurance-based minimum. Hopefully, with converting his Triology to BiPAP, he will have better compliance. 2. AECOPD improving continue Prednisone and BDs 3. Stenotrophomonas pneumonia switched to Bactrim. 4. Acute encephalopathy resolved most likely due to CO2 retention/metabolic/opioid/polypharmacy Reviewed OARRS: pt receives methadone, hydromorphone and methylphenidate at home from Lisette Gilbert and Yoshi Knutson. Has not received gabapentin since 06/18/21. I called the [facility] in [place], where he receives these scripts, I was provided the number for [facility] at Home. I called twice on 08/18 and was on hold for 10 minutes both times. Reviewed medications with patient, he takes methadone for chronic pain mgmt, but unable to be taken off completely because, according to him, of chronic opiate use preceding it. Also on hydromorphone for acute pain. He takes methylphenidate due to fatigue. He receives these medication though a palliative care program with these providers. 4. NSTEMI likely due to demand ischemia cardiology following. on ASA and atorvastatin EF 65%, trivial pericardial effusion, no tamponade outpt follow up and stress per cardiology 5. Hypophosphatemia: replace as needed 6. Lung cancer: Patient has history of lung cancer unclear about the staging and follow-up. Unsure as to what stage or kind he does not have any records of this hospital prior to 06/27/2021 7. Chronic HFpEF, continue furosemide 8. Tachycardia sinus tach, resolved Continue metoprolol tartrate 50 BID. 9. Stage III CKDa: Patient admitted with creatinine 1.34. BUN 27, creatinine 1.2. Estimated creatinine clearance 64 mL/min. BUN/creatinine 22. Monitor kidney function. 10. Bacteremia: 1 of 2 + for S. epidermidis. Contaminant. Bacteremia ruled out 11. DM2: start on metformin 500mg PO BID. Glucometer, check blood sugar at least once daily before meals and keep log. Told pt I cannot rule out that he may need insulin in the future. Medical Records Data Medical Nutrition Assessment Dietitian: Malnutrition Criteria Met Start: 08/18/21 09:52 Freq: Status: Active Protocol: Document 08/19/21 11:25 AG (Rec: 08/19/21 11:25 [id number]) Nutrition Malnutrition Evidence of Malnutrition Exists No Clinical Problem Acute Disease or Injury Related Malnutrition Etiology - Signs/Symptoms - Status Resolved Problem Altered Nutrient-Related Laboratory Values Etiology related to steroid administration Signs/Symptoms as evidenced by fasting blood glucose 330 Status Active Problem Recommendation Dietitian Recommendations/Changes continue regular no added salt diet and 120mL ensure enlive TID; will monitor need for supplement as PO intake appears improved at this time Weight / BMI Weight Weight: 87.3 kg Body Mass Index (BMI) 29.0 ABG / Lab / Microbiology Data Result Diagrams: 08/20/21 05:41 08/20/21 05:41 Laboratory: Laboratory Results - last 24 hr 08/19/21 16:16: POC Glucose 237 H 08/19/21 22:09: POC Glucose 408 H 08/20/21 05:41: WBC PNEUDRAULIC SYSTEMS MECHANIC, Corrected WBC 10.1, RBC 4.00 L, Hgb 12.1 L, Hct 37.9 L, MCV 94.8 H, MCH 30.3, MCHC 31.9 L, RDW Std Deviation 51.5 H, RDW Coeff of Imelda 15.0 H, Plt Count 247, MPV 10.9, Neut % (Auto) Not Reportable, Absolute Neuts (auto) 8.6 H, Absolute Lymphs (auto) 0.53 L, Total Counted 100, Neutrophils % (Manual) 80 H, Band Neutrophils % 1, Lymphocytes % (Manual) 5 L, Monocytes % (Manual) 9, Eosinophils % (Manual) 1, Metamyelocytes % 1, Myelocytes % 3 H, Nucleated RBCs/100 WBC 5, Diff Path Review Reviewed, Platelet Estimate ADEQUATE, RBC Morphology N CYTIC, Polychromasia RARE 08/20/21 05:41: Sodium 135 L, Potassium 3.6, Chloride 89 L, Carbon Dioxide 34.0 H, Anion Gap 12, BUN 32 H, Creatinine 1.32 H, Estim Creat Clear Calc 59.02, Est GFR (MDRD) Af Amer 72, Est GFR (MDRD) Non-Af 59 L, BUN/Creatinine Ratio 24.2 H, Glucose 180 H, Calcium 8.6 08/20/21 06:54: POC Glucose 220 H 08/20/21 11:37: POC Glucose 338 H Microbiology: Microbiology 08/16/21 22:30 Blood Culture (Wb) - Other Blood Culture - Preliminary Staphylococcus epidermidis 08/16/21 21:23 Sputum, Induced/Lukens Gram Stain - Final 08/16/21 21:23 Sputum, Induced/Lukens Respiratory Culture - Final Stenotrophomonas maltophilia 08/16/21 22:32 Blood Culture (Wb) - Catheter Blood Culture - Preliminary No growth in 48 hours. 08/16/21 21:20 Urine Catheter - Brown Urine Culture - Final Culture exhibits no growth. D/C Instructions Discharge Diet: Low fat / Low cholesterol Call your doctor if you observe: Shortness of breath Meaningful Use Info Meaningful Use Diagnoses (Choose all that apply): AMI AMI/Post PCI/Angioplasty Aspirin given w/in 24hrs of arrival?: Yes ASA at discharge?: Yes Statins at discharge?: Yes Edwardo/ARB at discharge?: No Reason Edwardo/ARB not ordered:: Worsening renal disease Beta Hugo at discharge?: Yes Done w/ Acute CA measure.: Yes Documented LVEF (%): 65 Discharge Plan Admission Admit Date/Time: 08/16/21 22:45 Attending Provider: Herminio Ramirez Primary Care Provider: Sergio Devi Consulting Providers: Blanka Mccloud ; Brandan Dial ; Saad Elena ; America Lopez PNEUDRAULIC SYSTEMS MECHANIC Instructions Patient Instructions: Eating Out When You Have Diabetes, Diabetes: Sick-Day Plan, Diabetes: Living Your Life, Diabetes: Meal Planning, What Is a BPAP?, Using a BPAP Discharge Orders/Prescriptions Prescriptions: New atorvastatin 40 mg Tablet 40 mg PO QHS Qty: 30 RF: 0 aspirin 81 mg Tablet,Chewable 81 mg PO 0800 Qty: 0 RF: 0 prednisone 20 mg Tablet 40 mg PO BREAKFAST Qty: 2 RF: 0 metoprolol tartrate 50 mg Tablet 50 mg PO BID Qty: 60 RF: 0 sulfamethoxazole-trimethoprim 800-160 mg Tablet 1 tab PO BIDCM Qty: 8 RF: 0 metformin 500 mg tablet 500 mg PO BID Qty: 60 RF: 0 Continued levothyroxine 175 mcg tablet 175 mcg PO DAILY RF: 0 ipratropium-albuterol 0.5 mg-3 mg(2.5 mg base)/3 mL solution for nebulization 3 ml inhalation Q4H PRN PRN (Reason: SOB) RF: 0 methadone 10 mg tablet 10 mg PO BID RF: 0 methylphenidate HCl 5 mg tablet 5 mg PO BID RF: 0 hydromorphone 2 mg tablet 2 mg PO Q8 PRN (Reason: Pain) RF: 0 furosemide 20 mg tablet 60 mg PO BID RF: 0 Discontinued gabapentin 300 mg capsule 300 mg PO QHS RF: 0 Ear Drops (carbamide peroxide) 6.5 % drops 5 drp LEFT EAR DAILY 4 Days Qty: 15 RF: 0 metoprolol succinate 50 mg tablet extended release 24 hr 50 mg PO DAILY RF: 0 prednisone 20 mg tablet 20 mg PO DAILY RF: 0 Other Ambulatory Orders: Glucometer (Routine) Location: None Selected Ordered By: Dr. Herminio Ramirez Referrals / Follow Up: [facility] [Provider Group] - Within 1 Month Sergio Devi MD [Primary Care Provider] - Within 2 Weeks Smooth Rogers MD [NON-STAFF] - Within 1 Month (or new inspector technician) Disposition Disposition (needs filled in before D/C Order can be placed): Home, Self Care Charges/Coding Visit Charges Inpatient E&M: 87400 Disch Hosp
--- NOTE | 2021-08-20 15:24 | NURSING ---
Triple lumen discontinued, pressure held for five minutes post removal. Patient tolerated well. Instructed patient to lay flat for 30 minutes post removal. Dressing applied and primary RN notified.
--- NOTE | 2021-08-20 16:01 | PHA.DC.MC ---
Pharmacy Service has performed discharge medication reconciliation and counseling for this patient. 1. ASPIRIN 81MG PO DAILYCM 2. ATORVASTATIN 40MG PO QHS 3. BACTRIM DS 1T PO BIDCM X 4 DAYS 4. METFORMIN 500MG PO BIDCM 5. PREDNISONE 40MG PO DAILY X 1 DOSE The patient's discharge medication list was reviewed for discrepancies and discrepancies were resolved. Home Medications furosemide 60 mg PO BID 06/27/21 hydromorphone 2 mg PO Q8 PRN 06/27/21 ipratropium-albuterol 3 ml INHALATION Q4H PRN PRN 06/27/21 levothyroxine 175 mcg PO DAILY 06/27/21 methadone 10 mg PO BID 06/27/21 methylphenidate HCl 5 mg PO BID 06/27/21 aspirin 81 mg PO 0800 #0 tab 08/20/21 atorvastatin 40 mg PO QHS #30 tab 08/20/21 metformin 500 mg PO BID #60 tab 08/20/21 metoprolol tartrate 50 mg PO BID #60 tab 08/20/21 prednisone 40 mg PO BREAKFAST #2 tab 08/20/21 sulfamethoxazole-trimethoprim 1 tab PO BIDCM #8 tab 08/20/21 The patient was counseled on the following discharge medications and changes in medications for homegoing were reviewed. The Reason for Use, instructions for use, and potential side effects were reviewed for all new medications. The patient's questions regarding all of their medications were answered. The patient was able to verbally demonstrate an understanding of their discharge medications.
== END 2021-08-20 16:18 | disposition home or self-care (01) | DRG 208 ==
LOC: ED 23:02 → ICU 23:09 → PCU 08-19 18:53
PROVIDERS: Internal Medicine; Internal Medicine Critical Care Medicine; Admitting Provider Family Medicine; Emergency Provider Emergency Medicine; PCP Family Medicine
DX: J96.21 Acute and chronic respiratory failure with hypoxia (principal); G92.8 Other toxic encephalopathy; E43 Unspecified severe protein-calorie malnutrition; I21.A1 Myocardial infarction type 2; J15.8 Pneumonia due to other specified bacteria; C34.90 Malignant neoplasm of unspecified part of unspecified bronchus or lung; I50.32 Chronic diastolic (congestive) heart failure; J44.1 Chronic obstructive pulmonary disease with (acute) exacerbation; I47.1 Supraventricular tachycardia; I95.9 Hypotension, unspecified; I27.20 Pulmonary hypertension, unspecified; J96.22 Acute and chronic respiratory failure with hypercapnia; E11.22 Type 2 diabetes mellitus with diabetic chronic kidney disease; N18.31 Chronic kidney disease, stage 3a; F17.210 Nicotine dependence, cigarettes, uncomplicated; E03.9 Hypothyroidism, unspecified; E83.39 Other disorders of phosphorus metabolism; T17.908A Unspecified foreign body in respiratory tract, part unspecified causing other injury, initial encounter; G89.4 Chronic pain syndrome; Z91.19 Patient's noncompliance with other medical treatment and regimen; I49.3 Ventricular premature depolarization; Z79.899 Other long term (current) drug therapy; E66.9 Obesity, unspecified; Z66 Do not resuscitate; Z68.29 Body mass index [BMI] 29.0-29.9, adult; Z99.81 Dependence on supplemental oxygen; T50.7X5A Adverse effect of analeptics and opioid receptor antagonists, initial encounter
CPT/HCPCS: 31500; 31720; 36415; 36556; 36600; 51702; 71045; 74018; 80048; 80053; 80061; 81001; 82803; 82962; 83605; 83735; 83880; 84100; 84484; 85025; 85610; 85730; 87040; 87070; 87077; 87086; 87186; 87205; 93005; 93306; 94002; 94003; 94640; 94660; 97110; 97116; 97162; 97166; 97530; 97535; 97802; 97803; 99251; 99285; 99406; J7030; J7050; Q9957; A4216; C1751; C8929; G0463; J0295; J0330; J3010

== ENCOUNTER 2021-10-10 11:45 | Inpatient (IN) | payer MEDICARE, SELFPAY ==
[2021-10-10] VITALS (28 sets, daily range): BP systolic 96–191; BP diastolic 64–114; PULSE 80–137; RESP 11–25; TEMP 35.7–37.7; O2SAT 86–100; BMI 25.2; BMI 22.6
--- NOTE | 2021-10-10 11:59 | EKG12_ITS ---
Test Reason : Blood Pressure : / mmHG Vent. Rate : 108 BPM Atrial Rate : 108 BPM P-R Int : 112 ms QRS Dur : 072 ms QT Int : 316 ms P-R-T Axes : 082 070 078 degrees QTc Int : 423 ms Sinus tachycardia Right atrial enlargement Borderline ECG Confirmed by CHERRI WOOD, SETH ([id number]), health editor OMAR STEINBERG ([id number]) on 10/13/2021 12:38:15 PM Referred By: Confirmed By:SETH HARLEY MD
--- NOTE | 2021-10-10 11:59 | RAD_ITS ---
STUDY: X-RAY CHEST REASON FOR EXAM: Male, 56 years old. Intubation TECHNIQUE: Single AP portable view of the chest. COMPARISON: Comparison is made with prior study done earlier today. FINDINGS: The tip of nasogastric tube distal portion of the esophagus. RAD/Chest 1 View (Portable) IMPRESSION: The tip of the nasogastric tube is in the distal portion of the esophagus. Electronically Signed: Kristopher Montano MD at 13:27 EDT ,
--- NOTE | 2021-10-10 12:01 | RAD_ITS ---
STUDY: X-RAY CHEST REASON FOR EXAM: Male, 56 years old. NG Insertion -- #2 TECHNIQUE: Single AP portable view of the chest. COMPARISON: Comparison is made with prior study dated 08/17/2021. FINDINGS: The endotracheal tube is in situ. The tip is at 3.6 cm proximal to the leora. The tip of the nasogastric tube is in the distal one third of the esophagus. The lungs are clear and expanded. There is no demonstrated pleural abnormality. Normal size heart. Normal mediastinum and magalys. Normal visualized pulmonary arteries. Normal visualized aortic arch and descending thoracic aorta. There are diffuse degenerative changes of the visualized thoracic spine. Normal visualized ribs, clavicles, and shoulders. Hiatal hernia. RAD/Chest 1 View IMPRESSION: The tip of the endotracheal tube is at 3.6 cm proximal to the leora. The tip of the nasogastric tube is in the distal one third of the esophagus. Electronically Signed: Kristopher Montano MD at 13:16 EDT ,
--- NOTE | 2021-10-10 12:01 | CT_ITS ---
STUDY: CT BRAIN WITHOUT CONTRAST REASON FOR EXAM: Male, 56 years old. Unresponsive. Hypoxia. RADIATION DOSAGE (If Supplied By Facility): CTDIvol = ( 44.99 ) mGy, DLP = ( 897.35 ) mGycm TECHNIQUE: Transaxial CT imaging of the brain was performed without administration of intravenous contrast material. Individualized dose optimization techniques were used for this CT. COMPARISON: Comparison is made with prior study from 06/27/2021. FINDINGS: An endotracheal tube is in situ. Normal soft tissue structures. Normal calvarium. Normal size ventricles and extra-axial spaces for the patient''s age. Normal white matter tracts of the cerebral hemispheres. Normal basal ganglia and thalami. Normal brainstem. Normal cerebellum. There is no intracranial hemorrhage. There are no findings of an acute ischemic infarction. Partial opacification of the ethmoid sinuses bilaterally worse on the right side. There is soft tissue prominence of the nasopharynx. CT/Brain/Head without Contrast IMPRESSION: Normal unenhanced CT scan of the brain. Electronically Signed: Kristopher Montano MD at 14:00 EDT ,
[2021-10-10 12:13] LABS: Absolute Neutrophil Count 12.2 X10^3/uL (2.0-7.7); Basophil# 0.08 X10^3/uL; Basophil% 0.6 % (0-1); Hematocrit 44.3 % (40-54); Hemoglobin 13.5 g/dL (13.0-16.5); Lymphocyte % 5.1 % (19-41); Mean Corp Hgb Conc 30.5 g/dL (32-36); Mean Corpuscular Hgb 30.8 pg (27.0-32.0); Mean Corpuscular Volume 101.1 fL (80-94); Mean Platelet Vol. 11.6 fl (6.2-12.0); Monocyte# 0.46 X10^3/uL; Monocyte% 3.3 % (0-10); NRBC Flagged by Analyzer 0.7 % (0-5); Neutrophil # 12.17 X10^3/uL (2.7-7.7); Neutrophil % 88.1 % (47-70); Platelet Count 281 K/mm3 (150-450); RBC Distribution Width CV 16.3 % (11.6-14.6); RBC Distribution Width SD 60.7 fl (35.1-43.9); Red Blood Count 4.38 M/mm3 (4.6-6.2); White Blood Count 13.8 K/mm3 (4.4-11.0)
[2021-10-10 12:16] LABS: Bacteria 0 SEEN /hpf (None Seen); Mucous, Urine 0 SEEN /hpf (<or=2+); Red Blood Cells-Urine 0 SEEN /hpf (0-5); Squamous Epithelial Cells - UA 0 SEEN /hpf (0-5); White Blood Cells 0 SEEN /hpf (0-5)
[2021-10-10] MEDS: MethylPREDNISolone 125 MG/2 ML Vial IV (12:17)
[2021-10-10] MEDS: Ipratropium/Albuterol Sulfate 3 ML AMPUL.NEB INHALATION ×4 (12:20→22:49)
[2021-10-10] MEDS: 0.9% Normal Saline 1,000 ML 150 ML IV (12:24)
[2021-10-10 12:27] LABS: International Normalized Ratio 0.9; Prothrombin Time (Protime)PT. 12.1 SECONDS (11.7-14.9)
[2021-10-10 12:28] LABS: Partial Thromboplast Time 25.8 Seconds (24.1-36.2)
[2021-10-10 12:30] LABS: Color, Urine Yellow (Yellow); Glucose, Dipstick 1000 mg/dl (Normal); Ketone-Dipstick Negative (Negative); Leukocyte Esterase-Dipstick Negative /ul (Negative); Nitrite-Dipstick Negative (Negative); Occult Blood-Urine Negative /ul (Negative); Protein-Dipstick 100 mg/dl (Negative); Urine Bilirubin Dipstick Negative (Negative); Urine Clarity Clear (Clear); Urine Urobilinogen Normal (Normal)
[2021-10-10 12:32] LABS: ALB/GLOB Ratio 0.8 RATIO (0.9-2.4); AST(SGOT) 48 U/L (15-37); Alanine Aminotransfer ALT/SGPT 75 U/L (16-61); Albumin, Serum 3.3 g/dL (3.2-5.0); Alkaline Phosphatase 274 U/L (45-117); BUN 32 mg/dL (7-18); BUN/Creat Ratio 22.2 RATIO (10-20); Calcium,Total 9.9 mg/dL (8.5-10.1); Carbon Dioxide > 45.0 mmol/L (21.0-32.0); Chloride 82 mmol/L (98-107); Creatinine, Serum 1.44 mg/dL (0.70-1.30); EST Glomerular Filtration Rate 53 mL/min (>60); Est Glom Filt Rate - Afr Amer 65 mL/min (>60); Estimated Creatinine Clearance 65.01 ml/min; Globulin 4.2 g/dL (2.2-4.2); Glucose 362 mg/dL (74-106); Potassium 5.6 mmol/L (3.5-5.1); Protein, Total 7.5 g/dL (6.4-8.2); Sodium Level 131 mmol/L (136-145)
[2021-10-10] MEDS: Midazolam 5 MG/ML Syringe IV (12:35)
--- NOTE | 2021-10-10 12:45 | RAD_ITS ---
STUDY: X-RAY CHEST REASON FOR EXAM: Male, 56 years old. NG/ ET TUBE PLACEMENT -- #4 TECHNIQUE: Single AP portable view of the chest. COMPARISON: Comparison is made with prior examination done earlier today. FINDINGS: Stable examination. The tip of the nasogastric tube is in the distal portion of the esophagus. RAD/Chest 1 View IMPRESSION: The tip of the nasogastric tube is in the distal portion of the esophagus. Electronically Signed: Kristopher Montano MD at 13:27 EDT ,
--- NOTE | 2021-10-10 12:45 | RAD_ITS ---
STUDY: X-RAY CHEST REASON FOR EXAM: Male, 56 years old. NG/ET TUBE PLACEMENT -- #3 TECHNIQUE: Single AP portable view of the chest. COMPARISON: Comparison is made with prior study done earlier today. FINDINGS: The tip of the nasogastric tube is in the distal portion of the esophagus. There has been no change. RAD/Chest 1 View IMPRESSION: Stable examination. Electronically Signed: Kristopher Monatno MD at 13:26 EDT ,
[2021-10-10 12:50] LABS: Lactic Acid 2.4 mmol/L (0.4-1.9)
--- NOTE | 2021-10-10 12:50 | NURSING ---
call from lab , Lactic acid = 2.4 dr fonseca aware
[2021-10-10 13:15] LABS: Base Excess 16 mmol/L (-2 to +2); Bicarbonate 41.7 mmol/L (22-26); Blood Gas Specimen Type ART; FI02 100; Mode AC; O2 Delivery Device Adult Vent; PEEP 5; PO2 429 mmHG (75-100); RR 14; SITE L Radial; SO2 100 % (95-99); Total Carbon Dioxide 44 mmol/L; Vt 450; pCO2 80.4 mmHg (35-45); pH 7.32 (7.35-7.45)
[2021-10-10] MEDS: Rocuronium Bromide 50 MG/5 ML Vial IV (13:15)
--- NOTE | 2021-10-10 13:19 | EX.ED.DYSGE1 ---
HPI History of Present Illness Chief Complaint: Unresponsive [facility] Medical History (Updated 10/10/21 @ 13:22 by Niharika Gamino) Chronic kidney disease (CKD) stage G3a/A1, moderately decreased glomerular filtration rate (GFR) between 45-59 mL/min/1.73 square meter and albuminuria creatinine ratio less than 30 mg/g COPD (chronic obstructive pulmonary disease) Diabetes Elevated troponin level Emphysema lung History of COPD Lung cancer Lung cancer Home Medications furosemide 20 mg tablet 60 mg PO BID water retention 06/27/21 [History Last Taken Unknown] hydromorphone 2 mg tablet 2 mg PO Q8 PRN Pain 06/27/21 [History Last Taken Unknown] ipratropium 0.5 mg-albuterol 3 mg (2.5 mg base)/3 mL nebulization soln 3 ml inhalation Q4H PRN PRN SOB 06/27/21 [History Last Taken Unknown] levothyroxine 175 mcg tablet 175 mcg PO DAILY thyroid 06/27/21 [History Last Taken Unknown] methadone 10 mg tablet 10 mg PO BID pain 06/27/21 [History Last Taken Unknown] methylphenidate HCl 5 mg tablet 5 mg PO BID stimulant 06/27/21 [History Last Taken Unknown] aspirin 81 mg chewable tablet 81 mg PO 0800 #0 tabs 08/20/21 [Rx Last Taken Unknown] atorvastatin 40 mg tablet 40 mg PO QHS #30 tabs 08/20/21 [Rx Last Taken Unknown] metformin 500 mg tablet 500 mg PO BID #60 tabs 08/20/21 [Rx Last Taken Unknown] metoprolol tartrate 50 mg tablet 50 mg PO BID #60 tabs 08/20/21 [Rx Last Taken Unknown] prednisone 20 mg tablet 40 mg PO BREAKFAST #2 tabs 08/20/21 [Rx Last Taken Unknown] sulfamethoxazole 800 mg-trimethoprim 160 mg tablet 1 tab PO BIDCM #8 tabs 08/20/21 [Rx Last Taken Unknown] Allergy/AdvReac Type Severity Reaction Status Date / Time No Known Allergies Allergy Verified 10/10/21 11:52 Family History unable to obtain Social History Smoking Status: Current every day smoker tobacco type: cigarettes and smokeless tobacco EXAM Physical Exam Const Vital Signs: 10/10/21 11:45 10/10/21 11:50 10/10/21 11:55 Temperature 96.2 F L 96.2 F L Temperature Source Temporal Temporal Pulse Rate 137 H 137 H Respiratory Rate 11 L 11 L Respiratory Effort Agonal Respiratory Depth Shallow Respiratory Pattern Gasping Blood Pressure 191/114 H 191/114 H Blood Pressure Mean 139 139 Pulse Ox 97 97 Oxygen Delivery Method Ambu-Bag Ambu-Bag Ambu-Bag Oxygen Flow Rate (L/min) 15 Fraction of Inspired Oxygen (FIO2) 10/10/21 12:08 10/10/21 12:08 10/10/21 12:16 Temperature 96.6 F L Temperature Source Core Pulse Rate 111 H Respiratory Rate 12 Respiratory Effort Respiratory Depth Respiratory Pattern Blood Pressure 147/101 H Blood Pressure Mean 116 Pulse Ox 100 100 Oxygen Delivery Method Mechanical Ventilator Mechanical Ventilator Oxygen Flow Rate (L/min) Fraction of Inspired Oxygen (FIO2) 10/10/21 12:56 10/10/21 13:04 10/10/21 13:04 Temperature 97.4 F L 97.3 F L 97.3 F L Temperature Source Core Core Core Pulse Rate 102 H 102 H Respiratory Rate 11 L 14 Respiratory Effort Respiratory Depth Respiratory Pattern Blood Pressure 121/82 H 141/92 H Blood Pressure Mean 95 108 Pulse Ox 100 100 Oxygen Delivery Method Mechanical Ventilator Mechanical Ventilator Oxygen Flow Rate (L/min) Fraction of Inspired Oxygen (FIO2) 10/10/21 12:40 10/10/21 12:07 10/10/21 13:31 Temperature 97.4 F L Temperature Source Core Pulse Rate 110 H 110 H 92 Respiratory Rate 25 H 14 15 Respiratory Effort Respiratory Depth Respiratory Pattern Tachypnea Normal Blood Pressure 97/78 Blood Pressure Mean 84 Pulse Ox 100 100 Oxygen Delivery Method Mechanical Ventilator Oxygen Flow Rate (L/min) Fraction of Inspired Oxygen (FIO2) 100 10/10/21 14:05 Temperature 97.6 F L Temperature Source Core Pulse Rate 89 Respiratory Rate 17 Respiratory Effort Respiratory Depth Respiratory Pattern Blood Pressure 101/76 Blood Pressure Mean 84 Pulse Ox 97 Oxygen Delivery Method Mechanical Ventilator Oxygen Flow Rate (L/min) Fraction of Inspired Oxygen (FIO2) MDM MDM MDM Narrative Medical decision making narrative: Patient was brought to the resuscitation bay. IV access was difficult to obtain. A left tibial IO was placed but unable to push fluids into. This was removed and a right tibial IO was placed. This allowed us to perform RSI using etomidate and succinylcholine. An 8-0 endotracheal tube was placed on the first attempt without any difficulty. This was secured in place at 24. We had substantial difficulty passing an OG and after the arrived tells us that he has been diagnosed with several strictures in the past. White count 13.8. CO2 greater than 45. ABG shows a pH of 7.3 with a PaCO2 of around 80. Patient's clinical appearance appears significantly improved. He is received a breathing treatment and Solu-Medrol. My interpretation of the chest x-ray is adequate placement of the endotracheal tube. No infiltrate seen. The OG needs to be advanced. CT the brain was negative for acute. I spoke with our visual journalist Dr. Elena and our hospitalist and plan is admission Lab Data Attestation: I reviewed the patient's lab results. Labs: Laboratory Results - last 24 hr 10/10/21 10/10/21 10/10/21 12:00 12:00 12:00 WBC 13.8 H RBC 4.38 L Hgb 13.5 Hct 44.3 MCV 101.1 H MCH 30.8 MCHC 30.5 L RDW Std Deviation 60.7 H RDW Coeff of Imelda 16.3 H Plt Count 281 MPV 11.6 Immature Gran % (Auto) 2.900 H Neut % (Auto) 88.1 H Lymph % (Auto) 5.1 L Henry % (Auto) 3.3 Eos % (Auto) 0.0 Baso % (Auto) 0.6 Absolute Neuts (auto) 12.2 H Absolute Lymphs (auto) 0.70 L Nucleated RBC % 0.7 PT 12.1 INR 0.9 APTT 25.8 Sodium 131 L Potassium 5.6 H Chloride 82 L Carbon Dioxide > 45.0 H* Anion Gap TNP BUN 32 H Creatinine 1.44 H Estim Creat Clear Calc 65.01 Est GFR (MDRD) Af Amer 65 Est GFR (MDRD) Non-Af 53 L BUN/Creatinine Ratio 22.2 H Glucose 362 H Lactic Acid Calcium 9.9 Total Bilirubin 0.50 AST 48 H ALT 75 H Alkaline Phosphatase 274 H Total Protein 7.5 Albumin 3.3 Globulin 4.2 Albumin/Globulin Ratio 0.8 L Urine Color Urine Clarity Urine pH Ur Specific Strawberry Urine Protein Urine Glucose (UA) Urine Ketones Urine Occult Blood Urine Nitrite Urine Bilirubin Urine Urobilinogen Ur Leukocyte Esterase Urine RBC Urine WBC Ur Squamous Epith Cells Urine Bacteria Urine Mucus 10/10/21 10/10/21 12:08 12:10 WBC RBC Hgb Hct MCV MCH MCHC RDW Std Deviation RDW Coeff of Imelda Plt Count MPV Immature Gran % (Auto) Neut % (Auto) Lymph % (Auto) Henry % (Auto) Eos % (Auto) Baso % (Auto) Absolute Neuts (auto) Absolute Lymphs (auto) Nucleated RBC % PT INR APTT Sodium Potassium Chloride Carbon Dioxide Anion Gap BUN Creatinine Estim Creat Clear Calc Est GFR (MDRD) Af Amer Est GFR (MDRD) Non-Af BUN/Creatinine Ratio Glucose Lactic Acid 2.4 H* Calcium Total Bilirubin AST ALT Alkaline Phosphatase Total Protein Albumin Globulin Albumin/Globulin Ratio Urine Color Yellow Urine Clarity Clear Urine pH 6.0 Ur Specific Strawberry 1.020 Urine Protein 100 H Urine Glucose (UA) 1000 H Urine Ketones Negative Urine Occult Blood Negative Urine Nitrite Negative Urine Bilirubin Negative Urine Urobilinogen Normal Ur Leukocyte Esterase Negative Urine RBC 0 SEEN Urine WBC 0 SEEN Ur Squamous Epith Cells 0 SEEN Urine Bacteria 0 SEEN Urine Mucus 0 SEEN ABG Data ABG results: ABG 10/10/21 13:07 Specimen Type ART Sample Site L Radial pH 7.32 L Bicarbonate Actual 41.7 H Total CO2 44 Base Excess 16 H O2 Saturation 100 H O2 % 100 ABG pCO2 80.4 H* ABG pO2 429 H* Respiration Rate 14 O2 Delivery Device Adult Vent Vent Mode AC Tidal Volume 450 POC PEEP 5 Crit Call To/Read Back Yes Radiography Diagnostic Testing: Clinical Impression(s) from Imaging Studies Chest X-Ray 10/10/21 11:59 IMPRESSION: The tip of the nasogastric tube is in the distal portion of the esophagus. Electronically Signed: Kristopher Montano MD at 13:27 EDT , Brain CT 10/10/21 12:01 IMPRESSION: Normal unenhanced CT scan of the brain. Electronically Signed: Kristopher Montano MD at 14:00 EDT , Chest X-Ray 10/10/21 12:01 IMPRESSION: The tip of the endotracheal tube is at 3.6 cm proximal to the leora. The tip of the nasogastric tube is in the distal one third of the esophagus. Electronically Signed: Kristopher Montano MD at 13:16 EDT , Chest X-Ray 10/10/21 12:45 IMPRESSION: Stable examination. Electronically Signed: Kristopher Montano MD at 13:26 EDT , Chest X-Ray 10/10/21 12:45 IMPRESSION: The tip of the nasogastric tube is in the distal portion of the esophagus. Electronically Signed: Kristopher Montano MD at 13:27 EDT , EKG Initial EKG: Attestation: I personally reviewed and interpreted this EKG as follows: Comments: Sinus tachycardia with a ventricular rate of 108 bpm Discharge Plan Triage Chief Complaint: Unresponsive ED Provider: Payam Johnston Dx/Rx/DC Orders Prescriptions: No Action levothyroxine 175 mcg tablet 175 mcg PO DAILY Label Comments: take 1 tablet by mouth once daily ipratropium-albuterol 0.5 mg-3 mg(2.5 mg base)/3 mL solution for nebulization 3 ml inhalation Q4H PRN PRN (Reason: SOB) Label Comments: inhale contents of 1 vial ( 3 milliliters ) in nebulizer by mouth... (REFER TO PRESCRIPTION NOTES). methadone 10 mg tablet 10 mg PO BID Label Comments: TAKE 1 TABLET BY MOUTH TWICE A DAY methylphenidate HCl 5 mg tablet 5 mg PO BID Label Comments: TAKE 1 TABLET BY MOUTH TWICE DAILY FOR 30 DAYS. WITH BREAKFAST AND LUNCH. hydromorphone 2 mg tablet 2 mg PO Q8 PRN (Reason: Pain) furosemide 20 mg tablet 60 mg PO BID atorvastatin 40 mg Tablet 40 mg PO QHS Qty: 30 0RF aspirin 81 mg Tablet,Chewable 81 mg PO 0800 Qty: 0 0RF prednisone 20 mg Tablet 40 mg PO BREAKFAST Qty: 2 0RF metoprolol tartrate 50 mg Tablet 50 mg PO BID Qty: 60 0RF sulfamethoxazole-trimethoprim 800-160 mg Tablet 1 tab PO BIDCM Qty: 8 0RF metformin 500 mg tablet 500 mg PO BID Qty: 60 0RF Primary Care Provider: Sergio Devi Referrals: Sergio Devi MD [Primary Care Provider] -
--- NOTE | 2021-10-10 13:22 | CPS ---
Critical blood gas, reported to DR. ROCK
--- NOTE | 2021-10-10 14:45 | HP.PCM.HOS_ITS ---
HPI - General General Date of Admission: 10/10/21 HPI Narrative SUMEET ELLIOTT, is a 56 M who presents who presents to the hospital with unresponsiveness secondary to shortness of breath and acute on chronic hypercapnic respiratory failure. There is no family at bedside and he was intubated in the ER prior to my evaluation so history was obtained by chart review. He was a little bit confused yesterday which is generally the sign that he is going into some respiratory failure, today EMS was called secondary to being unresponsive while on his CPAP. He was brought to the ER immediately intubated. PCO2 on ABG was 80.4, his O2 sat by EMS documentation was 91% on arrival. [facility] Medical History (Updated 10/10/21 @ 14:[address] Payam Johnston, ) Chronic kidney disease (CKD) stage G3a/A1, moderately decreased glomerular filtration rate (GFR) between 45-59 mL/min/1.73 square meter and albuminuria creatinine ratio less than 30 mg/g COPD (chronic obstructive pulmonary disease) Diabetes Elevated troponin level Emphysema lung History of COPD Lung cancer Lung cancer Home Medications furosemide 20 mg tablet 40 mg PO TID water retention 06/27/21 [History Last Taken Unknown] hydromorphone 2 mg tablet 2 mg PO Q8 PRN Pain 06/27/21 [History Last Taken Unknown] ipratropium 0.5 mg-albuterol 3 mg (2.5 mg base)/3 mL nebulization soln 3 ml inhalation Q4H PRN PRN SOB 06/27/21 [History Last Taken Unknown] levothyroxine 175 mcg tablet 175 mcg PO DAILY thyroid 06/27/21 [History Last Taken Unknown] methadone 10 mg tablet 10 mg PO BID pain 06/27/21 [History Last Taken Unknown] methylphenidate HCl 5 mg tablet 5 mg PO BID stimulant 06/27/21 [History Last Taken Unknown] aspirin 81 mg chewable tablet 81 mg PO 0800 Check with primary doctor 10/10/21 [History Last Taken Unknown] atorvastatin 40 mg tablet 40 mg PO QHS Check with primary doctor 10/10/21 [History Last Taken Unknown] insulin glargine 100 unit/mL (3 mL) subcutaneous pen (Lantus Solostar U-100 Insulin) 10 unit subcut QPM Check with primary doctor 10/10/21 [History Last Taken Unknown] metoprolol tartrate 50 mg tablet 50 mg PO BID Check with primary doctor 10/10/21 [History Last Taken Unknown] prednisone 20 mg tablet 40 mg PO BREAKFAST Check with primary doctor 10/10/21 [History Last Taken Unknown] Allergy/AdvReac Type Severity Reaction Status Date / Time No Known Allergies Allergy Verified 10/10/21 11:52 Family History unable to obtain unable to obtain unable to obtain Social History Smoking Status: Current every day smoker tobacco type: cigarettes and smokeless tobacco ROS Review of Systems ROS Unobtainable: due to endotracheal tube Vital Signs Vital Signs Vital Signs: 10/10/21 11:45 10/10/21 11:50 10/10/21 11:55 Temperature 96.2 F L 96.2 F L Temperature Source Temporal Temporal Pulse Rate 137 H 137 H Respiratory Rate 11 L 11 L Respiratory Effort Agonal Respiratory Depth Shallow Respiratory Pattern Gasping Blood Pressure 191/114 H 191/114 H Blood Pressure Mean 139 139 Pulse Ox 97 97 Oxygen Delivery Method Ambu-Bag Ambu-Bag Ambu-Bag Oxygen Flow Rate (L/min) 15 Fraction of Inspired Oxygen (FIO2) 10/10/21 12:08 10/10/21 12:08 10/10/21 12:16 Temperature 96.6 F L Temperature Source Core Pulse Rate 111 H Respiratory Rate 12 Respiratory Effort Respiratory Depth Respiratory Pattern Blood Pressure 147/101 H Blood Pressure Mean 116 Pulse Ox 100 100 Oxygen Delivery Method Mechanical Ventilator Mechanical Ventilator Oxygen Flow Rate (L/min) Fraction of Inspired Oxygen (FIO2) 10/10/21 12:56 10/10/21 13:04 10/10/21 13:04 Temperature 97.4 F L 97.3 F L 97.3 F L Temperature Source Core Core Core Pulse Rate 102 H 102 H Respiratory Rate 11 L 14 Respiratory Effort Respiratory Depth Respiratory Pattern Blood Pressure 121/82 H 141/92 H Blood Pressure Mean 95 108 Pulse Ox 100 100 Oxygen Delivery Method Mechanical Ventilator Mechanical Ventilator Oxygen Flow Rate (L/min) Fraction of Inspired Oxygen (FIO2) 10/10/21 12:40 10/10/21 12:07 10/10/21 13:31 Temperature 97.4 F L Temperature Source Core Pulse Rate 110 H 110 H 92 Respiratory Rate 25 H 14 15 Respiratory Effort Respiratory Depth Respiratory Pattern Tachypnea Normal Blood Pressure 97/78 Blood Pressure Mean 84 Pulse Ox 100 100 Oxygen Delivery Method Mechanical Ventilator Oxygen Flow Rate (L/min) Fraction of Inspired Oxygen (FIO2) 100 10/10/21 14:05 Temperature 97.6 F L Temperature Source Core Pulse Rate 89 Respiratory Rate 17 Respiratory Effort Respiratory Depth Respiratory Pattern Blood Pressure 101/76 Blood Pressure Mean 84 Pulse Ox 97 Oxygen Delivery Method Mechanical Ventilator Oxygen Flow Rate (L/min) Fraction of Inspired Oxygen (FIO2) Weight Weight: 196 lb 3.382 oz Body Mass Index (BMI) 25.2 Physical Exam Const General Appearance: intubated and patient mechanically ventilated HEENT normocephalic Eyes PERRL and conjunctivae normal Neck supple and no JVD Resp normal respiratory effort, no retractions and no use of accessory muscles Auscultation: wheezes; Negative for crackles, rales or rhonchi Cardio regular rate, regular rhythm, S1 normal heart sound, S2 normal heart sound and no murmurs GI soft to palpation and non-distended; Negative for hepatosplenomegaly Extremity no clubbing, cyanosis or edema Skin no rashes or lesions noted Neuro Sensorium / Orientation: sedated on vent Psych Appearance: intubated Results Lab / Micro Data Result Diagrams: 10/10/21 12:00 10/10/21 12:00 Labs: Laboratory Results - last 24 hr 10/10/21 12:00: WBC 13.8 H, RBC 4.38 L, Hgb 13.5, Hct 44.3, MCV 101.1 H, MCH 30.8, MCHC 30.5 L, RDW Std Deviation 60.7 H, RDW Coeff of Imelda 16.3 H, Plt Count 281, MPV 11.6, Immature Gran % (Auto) 2.900 H, Neut % (Auto) 88.1 H, Lymph % (Auto) 5.1 L, Vance % (Auto) 3.3, Eos % (Auto) 0.0, Baso % (Auto) 0.6, Absolute Neuts (auto) 12.2 H, Absolute Lymphs (auto) 0.70 L, Nucleated RBC % 0.7 10/10/21 12:00: PT 12.1, INR 0.9, APTT 25.8 10/10/21 12:00: Sodium 131 L, Potassium 5.6 H, Chloride 82 L, Carbon Dioxide > 45.0 H*, Anion Gap TNP, BUN 32 H, Creatinine 1.44 H, Estim Creat Clear Calc 65.01, Est GFR (MDRD) Af Amer 65, Est GFR (MDRD) Non-Af 53 L, BUN/Creatinine Ratio 22.2 H, Glucose 362 H, Calcium 9.9, Total Bilirubin 0.50, AST 48 H, ALT 75 H, Alkaline Phosphatase 274 H, Total Protein 7.5, Albumin 3.3, Globulin 4.2, Albumin/Globulin Ratio 0.8 L 10/10/21 12:08: Urine Color Yellow, Urine Clarity Clear, Urine pH 6.0, Ur Specific Bone Gap 1.020, Urine Protein 100 H, Urine Glucose (UA) 1000 H, Urine Ketones Negative, Urine Occult Blood Negative, Urine Nitrite Negative, Urine Bilirubin Negative, Urine Urobilinogen Normal, Ur Leukocyte Esterase Negative, Urine RBC 0 SEEN, Urine WBC 0 SEEN, Ur Squamous Epith Cells 0 SEEN, Urine Bacteria 0 SEEN, Urine Mucus 0 SEEN 10/10/21 12:10: Lactic Acid 2.4 H* Micro: Microbiology 10/10/21 12:09 Nasal Secretion SARS-CoV-2 Antigen (Rapid) - Final ABG Data ABG results: ABG 10/10/21 13:07 Specimen Type ART Sample Site L Radial pH 7.32 L Bicarbonate Actual 41.7 H Total CO2 44 Base Excess 16 H O2 Saturation 100 H O2 % 100 ABG pCO2 80.4 H* ABG pO2 429 H* Respiration Rate 14 O2 Delivery Device Adult Vent Vent Mode AC Tidal Volume 450 POC PEEP 5 Crit Call To/Read Back Yes Radiology Impression Chest X-Ray 10/10/21 11:59 IMPRESSION: The tip of the nasogastric tube is in the distal portion of the esophagus. Electronically Signed: Kristopher Montano MD at 13:27 EDT , Brain CT 10/10/21 12:01 IMPRESSION: Normal unenhanced CT scan of the brain. Electronically Signed: Kristopher Montano MD at 14:00 EDT , Chest X-Ray 10/10/21 12:01 IMPRESSION: The tip of the endotracheal tube is at 3.6 cm proximal to the leora. The tip of the nasogastric tube is in the distal one third of the esophagus. Electronically Signed: Kristopher Montano MD at 13:16 EDT , Chest X-Ray 10/10/21 12:45 IMPRESSION: Stable examination. Electronically Signed: Kristopher Montano MD at 13:26 EDT , Chest X-Ray 10/10/21 12:45 IMPRESSION: The tip of the nasogastric tube is in the distal portion of the esophagus. Electronically Signed: Kristopher Montano MD at 13:27 EDT , Assessment & Plan Assessment/Plan (1) Acute hypercapnic respiratory failure: PLAN: Plan 1. Acute on chronic hypercapnic respiratory failure secondary to COPD exacerbation ? There is significant wheezing on exam ? No hypoxia this time around however he was on his BiPAP this time when EMS arrived ? Continue with intubation and ICU placement, will place him on steroids and breathing treatments ? White count is elevated this could be a stress response, he is afebrile so we will hold antibiotics for now and keep an eye on him. ? Sputum culture sent ? Unable to sync an OG therefore we will hold all of his home oral medications ? He does have mild leukocytosis without fever and it does appear that he was on prednisone as an outpatient ? Pepcid for GI prophylaxis 2. Chronic diastolic CHF/HLD ? He did have an echo on his previous admission secondary to SVT and a non-STEMI that was likely due to demand ischemia at that time EF was 65% ? We will hold his Lasix, Lipitor until he can take p.o. ? Can transition his p.o. metoprolol to IV metoprolol if necessary 3. DM2 ? We will hold his acting insulin as he is currently n.p.o. ? Place him on sliding scale insulin every 4 hours with Accu-Cheks every 4 hours DVT: Lovenox Charges/Coding Visit Charges Inpatient E&M: 75017 Init Hosp L3
[2021-10-10] MEDS: 0.9% Normal Saline 1,000 ML 75 ML IV (15:56)
[2021-10-10 16:15] LABS: Reflex Lactate? Y
[2021-10-10] MEDS: Insulin Lispro 100 UNIT/ML INSULN.PEN SC ×2 (16:27→21:43)
[2021-10-10 16:30] LABS: Bedside Glucose 295 mg/dL (74-106)
[2021-10-10 17:01] LABS: Base Excess 19 mmol/L (-2 to +2); Bicarbonate 41.3 mmol/L (22-26); Blood Gas Specimen Type ART; FI02 40; Mode AC; O2 Delivery Device ET Tube; PEEP 5; PO2 59 mmHG (75-100); RR 15; SITE R Brach; SO2 92 % (95-99); Total Carbon Dioxide 43 mmol/L; Vt 450; pCO2 49.9 mmHg (35-45); pH 7.53 (7.35-7.45)
[2021-10-10 17:09] LABS: Lactic Acid 2.6 mmol/L (0.4-1.9)
[2021-10-10 17:42] LABS: CPK Total, Creatine Kinase 94 U/L (39-308); Triglycerides 351 mg/dL
[2021-10-10] MEDS: Propofol 10MG/Ml 1,000 MG/100 ML Bottle 5.3 MG CONT INF (20:49)
[2021-10-10] MEDS: Chlorhexidine 15 ML PO (21:39)
[2021-10-10] MEDS: Famotidine 200 MG/20 ML MDV 20 MG in 0.9% Normal Saline (Pres. free 8 ML 300 MG IV (21:40)
[2021-10-10] MEDS: 0.9% Saline Lock 10 ML Syringe IV (21:45)
[2021-10-10 22:01] LABS: Bedside Glucose 214 mg/dL (74-106)
[2021-10-11] VITALS (32 sets, daily range): BP systolic 103–138; BP diastolic 63–97; PULSE 79–128; RESP 11–25; TEMP 37–37.6; O2SAT 89–99
[2021-10-11] MEDS: Ipratropium/Albuterol Sulfate 3 ML AMPUL.NEB INHALATION ×6 (03:52→23:32)
[2021-10-11] MEDS: Insulin Lispro 100 UNIT/ML INSULN.PEN SC ×5 (03:57→22:07)
[2021-10-11 04:15] LABS: Absolute Lymphocyte Count 0.13 X10^3/uL (0.83-4.51); Absolute Neutrophil Count 9.1 X10^3/uL (2.0-7.7); Basophil# 0.01 X10^3/uL; Basophil% 0.1 % (0-1); Hematocrit 33.1 % (40-54); Hemoglobin 10.4 g/dL (13.0-16.5); Lymphocyte # 0.13 X10^3/ul (0.83-4.51); Lymphocyte % 1.3 % (19-41); Mean Corp Hgb Conc 31.4 g/dL (32-36); Mean Corpuscular Hgb 30.6 pg (27.0-32.0); Mean Corpuscular Volume 97.4 fL (80-94); Mean Platelet Vol. 11.3 fl (6.2-12.0); Monocyte# 0.31 X10^3/uL; Monocyte% 3.2 % (0-10); NRBC Flagged by Analyzer 0.3 % (0-5); Neutrophil # 9.12 X10^3/uL (2.7-7.7); Neutrophil % 93.9 % (47-70); POSITIVE DIFFERENTIAL YES; Platelet Count 231 K/mm3 (150-450); RBC Distribution Width CV 16.7 % (11.6-14.6); RBC Distribution Width SD 59.3 fl (35.1-43.9); White Blood Count 9.7 K/mm3 (4.4-11.0)
[2021-10-11 04:16] LABS: Bedside Glucose 191 mg/dL (74-106)
[2021-10-11 04:31] LABS: ALB/GLOB Ratio 0.9 RATIO (0.9-2.4); AST(SGOT) 18 U/L (15-37); Alanine Aminotransfer ALT/SGPT 48 U/L (16-61); Albumin, Serum 2.5 g/dL (3.2-5.0); Alkaline Phosphatase 173 U/L (45-117); Anion Gap 8 (5-15); BUN 26 mg/dL (7-18); BUN/Creat Ratio 26.4 RATIO (10-20); Calcium,Total 8.5 mg/dL (8.5-10.1); Chloride 88 mmol/L (98-107); Creatinine, Serum 0.98 mg/dL (0.70-1.30); Differential Comment SCANNED; Differential Indicated SCAN CRITERIA MET; EST Glomerular Filtration Rate 83 mL/min (>60); Est Glom Filt Rate - Afr Amer 100 mL/min (>60); Estimated Creatinine Clearance 94.13 ml/min; Globulin 2.7 g/dL (2.2-4.2); Glucose 202 mg/dL (74-106); Potassium 3.6 mmol/L (3.5-5.1); Protein, Total 5.2 g/dL (6.4-8.2); Sodium Level 136 mmol/L (136-145)
[2021-10-11] MEDS: 0.9% Normal Saline 1,000 ML 75 ML IV (05:27)
--- NOTE | 2021-10-11 05:33 | EX.PCM.CONCC ---
Assessment & Plan Assessment/Plan (1) Acute on chronic respiratory failure with hypoxia and hypercapnia: PLAN: Plan RECOMMENDATIONS: 1. Proceed with a trial of extubation this morning. 2. Once extubated, wean supplemental oxygen for saturations greater than 90%. 3. Perform bedside swallow evaluation and advance diet accordingly. 4. Initiate empiric BiPAP therapy with naps and nightly. 5. Continue scheduled bronchodilators and steroids. 6. Continue appropriate prophylaxis. IMPRESSIONS: 1.??Acute on chronic combined respiratory failure The patient has a reported history of COPD of unclear severity along with chronic hypoxemic respiratory failure.? His compliance with outpatient prescribed medical therapy is questionable.? No definitive pulmonary infectious etiology has been identified.? Therefore, it is most plausible that his noncompliance led to his exacerbation.? I do have concerns that the patient's CO2 retention is likely multifactorial and related to chronic opiate utilization, limited respiratory reserve and outpatient noncompliance with prescribed medical therapy. The patient's mentation has improved with invasive mechanical ventilatory support. He is currently alert and appropriately interactive. The patient passed his spontaneous breathing trial and will be extubated, accordingly. Once extubated, a bedside swallow evaluation can be completed and diet advanced accordingly. Supplemental oxygen will be weaned for saturations greater than 90%. The patient will be placed empirically on BiPAP therapy with naps and nightly. Plan to continue scheduled bronchodilators and steroids. Ultimately, the patient needs to be scheduled for outpatient pulmonary follow-up. 2.??Encephalopathy Resolved. Likely secondary to CO2 retention in the setting of opiate medication utilization and medical noncompliance.? 3.??Chronic kidney disease/history of lung cancer/hypothyroidism/chronic pain syndrome Complicates care, management, recovery and prognosis.? Continue home medications as indicated. TIME: 34 minutes of critical care time, independent of procedures, was spent addressing the patient's acute on chronic combined respiratory failure, encephalopathy, review of all data and collaboration with the care team. HPI Consult Data Date of Consult: 10/11/21 HPI Narrative Reason for Consultation: Acute on chronic respiratory failure HPI Narrative: The patient is a 56-year-old male, with a history as outlined below, who presented to the emergency department on October 10 with encephalopathy. The patient's medical history includes lung cancer, emphysema and chronic hypoxemic respiratory failure with a baseline requirement of 4 L/min.? He also reportedly has a history of sleep apnea with poor outpatient compliance.? The patient has had several recent hospitalizations for respiratory failure which was felt to be secondary to the patient's use of narcotics coupled with his outpatient noncompliance with prescribed medical therapy. His last hospital admission for similar circumstances occurred in July 2021. On presentation to the emergency department, the patient was documented to be hypothermic with a recorded temperature of 96.2 ?F. The patient was tachycardic and hypertensive. Initial laboratory evaluation revealed a white blood cell count of 14,000. Coagulation profile was unremarkable. Chemistry profile was notable for a sodium of 131, potassium of 5.6, chloride of 82, bicarbonate of greater than 45 and creatinine of 1.4. Lactate was elevated at 2.4. Urinalysis was unremarkable. Head CT was unremarkable. Due to the patient's presenting encephalopathy, the patient was intubated in the emergency department. Follow-up chest imaging demonstrated no acute cardiopulmonary process. The patient was subsequently placed on scheduled bronchodilators and IV steroids. He was admitted to the medical intensive care unit for further management. This morning, the patient passed his spontaneous breathing trial. He is alert and appropriately interactive. [facility] Medical History (Updated 10/11/21 @ 05:[address] Saad Elena, ) Chronic kidney disease (CKD) stage G3a/A1, moderately decreased glomerular filtration rate (GFR) between 45-59 mL/min/1.73 square meter and albuminuria creatinine ratio less than 30 mg/g COPD (chronic obstructive pulmonary disease) Diabetes Elevated troponin level Emphysema lung History of COPD Lung cancer Lung cancer Home Medications furosemide 20 mg tablet 40 mg PO TID water retention 06/27/21 [History Last Taken Unknown] hydromorphone 2 mg tablet 2 mg PO Q8 PRN Pain 06/27/21 [History Last Taken Unknown] ipratropium 0.5 mg-albuterol 3 mg (2.5 mg base)/3 mL nebulization soln 3 ml inhalation Q4H PRN PRN SOB 06/27/21 [History Last Taken Unknown] levothyroxine 175 mcg tablet 175 mcg PO DAILY thyroid 06/27/21 [History Last Taken Unknown] methadone 10 mg tablet 10 mg PO BID pain 06/27/21 [History Last Taken Unknown] methylphenidate HCl 5 mg tablet 5 mg PO BID stimulant 06/27/21 [History Last Taken Unknown] aspirin 81 mg chewable tablet 81 mg PO 0800 Check with primary doctor 10/10/21 [History Last Taken Unknown] atorvastatin 40 mg tablet 40 mg PO QHS Check with primary doctor 10/10/21 [History Last Taken Unknown] insulin glargine 100 unit/mL (3 mL) subcutaneous pen (Lantus Solostar U-100 Insulin) 10 unit subcut QPM Check with primary doctor 10/10/21 [History Last Taken Unknown] metoprolol tartrate 50 mg tablet 50 mg PO BID Check with primary doctor 10/10/21 [History Last Taken Unknown] prednisone 20 mg tablet 40 mg PO BREAKFAST Check with primary doctor 10/10/21 [History Last Taken Unknown] Allergy/AdvReac Type Severity Reaction Status Date / Time No Known Allergies Allergy Verified 10/10/21 11:52 Family History unable to obtain Surgical History unable to obtain Social History Smoking Status: Current every day smoker tobacco type: cigarettes and smokeless tobacco ROS Review of Systems ROS Unobtainable: due to endotracheal tube and due to mental status Physical Exam Const alert and no apparent distress General Appearance: intubated and patient mechanically ventilated HEENT normocephalic and head/scalp atraumatic Mouth: endotracheal tube in place and OG tube in place Eyes PERRL, EOMs intact bilaterally and conjunctivae normal Neck supple General: trachea midline Chest inspection of chest normal Resp normal respiratory effort Auscultation: diminished lung sounds Cardio regular rate and regular rhythm GI normal to inspection, nondistended, normoactive bowel sounds Extremity no clubbing, cyanosis or edema Skin no rashes or lesions noted Neuro moves all extremities and no focal motor deficits Psych cooperative and affect normal Lab / Micro Data Result Diagrams: 10/11/21 04:00 10/11/21 04:00 Labs: Laboratory Results - last 24 hr 10/10/21 12:00: WBC 13.8 H, RBC 4.38 L, Hgb 13.5, Hct 44.3, MCV 101.1 H, MCH 30.8, MCHC 30.5 L, RDW Std Deviation 60.7 H, RDW Coeff of Imelda 16.3 H, Plt Count 281, MPV 11.6, Immature Gran % (Auto) 2.900 H, Neut % (Auto) 88.1 H, Lymph % (Auto) 5.1 L, [place] % (Auto) 3.3, Eos % (Auto) 0.0, Baso % (Auto) 0.6, Absolute Neuts (auto) 12.2 H, Absolute Lymphs (auto) 0.70 L, Nucleated RBC % 0.7 10/10/21 12:00: PT 12.1, INR 0.9, APTT 25.8 10/10/21 12:00: Sodium 131 L, Potassium 5.6 H, Chloride 82 L, Carbon Dioxide > 45.0 H*, Anion Gap TNP, BUN 32 H, Creatinine 1.44 H, Estim Creat Clear Calc 65.01, Est GFR (MDRD) Af Amer 65, Est GFR (MDRD) Non-Af 53 L, BUN/Creatinine Ratio 22.2 H, Glucose 362 H, Calcium 9.9, Total Bilirubin 0.50, AST 48 H, ALT 75 H, Alkaline Phosphatase 274 H, Total Protein 7.5, Albumin 3.3, Globulin 4.2, Albumin/Globulin Ratio 0.8 L 10/10/21 12:00: Total Creatine Kinase 94, Triglycerides 351 H 10/10/21 12:08: Urine Color Yellow, Urine Clarity Clear, Urine pH 6.0, Ur Specific [place] 1.020, Urine Protein 100 H, Urine Glucose (UA) 1000 H, Urine Ketones Negative, Urine Occult Blood Negative, Urine Nitrite Negative, Urine Bilirubin Negative, Urine Urobilinogen Normal, Ur Leukocyte Esterase Negative, Urine RBC 0 SEEN, Urine WBC 0 SEEN, Ur Squamous Epith Cells 0 SEEN, Urine Bacteria 0 SEEN, Urine Mucus 0 SEEN 10/10/21 12:10: Lactic Acid 2.4 H* 10/10/21 16:25: Lactic Acid 2.6 H* 10/10/21 16:25: POC Glucose 295 H 10/10/21 21:42: POC Glucose 214 H 10/11/21 03:55: POC Glucose 191 H 10/11/21 04:00: WBC 9.7, RBC 3.40 L, Hgb 10.4 L, Hct 33.1 L, MCV 97.4 H, MCH 30.6, MCHC 31.4 L, RDW Std Deviation 59.3 H, RDW Coeff of Imelda 16.7 H, Plt Count 231, MPV 11.3, Immature Gran % (Auto) 1.500 H, Neut % (Auto) 93.9 H, Lymph % (Auto) 1.3 L, [place] % (Auto) 3.2, Eos % (Auto) 0.0, Baso % (Auto) 0.1, Absolute Neuts (auto) 9.1 H, Absolute Lymphs (auto) 0.13 L, Nucleated RBC % 0.3, Differential Comment SCANNED 10/11/21 04:00: Sodium 136, Potassium 3.6, Chloride 88 L, Carbon Dioxide 40.0 H, Anion Gap 8, BUN 26 H, Creatinine 0.98, Estim Creat Clear Calc 94.13, Est GFR (MDRD) Af Amer 100, Est GFR (MDRD) Non-Af 83, BUN/Creatinine Ratio 26.4 H, Glucose 202 H, Calcium 8.5, Total Bilirubin 0.40, AST 18, ALT 48, Alkaline Phosphatase 173 H, Total Protein 5.2 L, Albumin 2.5 L, Globulin 2.7, Albumin/Globulin Ratio 0.9 Micro: Microbiology 10/10/21 12:09 Nasal Secretion SARS-CoV-2 Antigen (Rapid) - Final ABG Data ABG results: ABG 10/10/21 10/10/21 13:07 16:53 Specimen Type ART ART Sample Site L Radial R Brach pH 7.32 L 7.53 H Bicarbonate Actual 41.7 H 41.3 H Total CO2 44 43 Base Excess 16 H 19 H O2 Saturation 100 H 92 L O2 % 100 40 ABG pCO2 80.4 H* 49.9 H ABG pO2 429 H* 59 L Respiration Rate 14 15 O2 Delivery Device Adult Vent ET Tube Vent Mode AC AC Tidal Volume 450 450 POC PEEP 5 5 Crit Call To/Read Back Yes Radiology Impression Chest X-Ray 10/10/21 11:59 IMPRESSION: The tip of the nasogastric tube is in the distal portion of the esophagus. Electronically Signed: Kristopher Montano MD at 13:27 EDT , Brain CT 10/10/21 12:01 IMPRESSION: Normal unenhanced CT scan of the brain. Electronically Signed: Kristopher Montano MD at 14:00 EDT , Chest X-Ray 10/10/21 12:01 IMPRESSION: The tip of the endotracheal tube is at 3.6 cm proximal to the leora. The tip of the nasogastric tube is in the distal one third of the esophagus. Electronically Signed: Kristopher Montano MD at 13:16 EDT , Chest X-Ray 10/10/21 12:45 IMPRESSION: Stable examination. Electronically Signed: Kristopher Montano MD at 13:26 EDT , Chest X-Ray 10/10/21 12:45 IMPRESSION: The tip of the nasogastric tube is in the distal portion of the esophagus. Electronically Signed: Kristopher Montano MD at 13:27 EDT , Charges/Coding Procedures Hospitalists Procedures: 80779 Critial Care 1st Hr
[2021-10-11 06:46] LABS: Bedside Glucose 234 mg/dL (74-106)
--- NOTE | 2021-10-11 08:30 | PCM.PN.HOSP ---
Subjective Subjective Extubated, doing well. Currently maintaining his oxygen saturations on 4 L nasal cannula Objective Data Objective Data Vital Signs: Vital Signs Temp Pulse Resp BP Pulse Ox FiO2 99.4 F H 113 H 18 131/89 H 90 35 10/11/21 08:00 10/11/21 08:00 10/11/21 08:00 10/11/21 08:00 10/11/21 08:00 10/11/21 06:50 Oxygen Flow Rate (L/min) 4 Oxygen Delivery Method Nasal Cannula Weight: 178 lb 9.191 oz Body Mass Index (BMI) 22.6 Intake & Output: Intake and Output for Last 24 Hours 10/10/21 10/11/21 10/12/21 03:59 03:59 03:59 Intake Total 581.37 / 589.37 1014 / 1014 Output Total 415 / 500 130 / 130 Balance 166.37 / 89.37 884 / 884 Lab / Micro Data Result Diagrams: 10/11/21 04:00 10/11/21 04:00 Labs: Laboratory Results - last 24 hr 10/10/21 12:00: WBC 13.8 H, RBC 4.38 L, Hgb 13.5, Hct 44.3, MCV 101.1 H, MCH 30.8, MCHC 30.5 L, RDW Std Deviation 60.7 H, RDW Coeff of Imelda 16.3 H, Plt Count 281, MPV 11.6, Immature Gran % (Auto) 2.900 H, Neut % (Auto) 88.1 H, Lymph % (Auto) 5.1 L, [place] % (Auto) 3.3, Eos % (Auto) 0.0, Baso % (Auto) 0.6, Absolute Neuts (auto) 12.2 H, Absolute Lymphs (auto) 0.70 L, Nucleated RBC % 0.7 10/10/21 12:00: PT 12.1, INR 0.9, APTT 25.8 10/10/21 12:00: Sodium 131 L, Potassium 5.6 H, Chloride 82 L, Carbon Dioxide > 45.0 H*, Anion Gap TNP, BUN 32 H, Creatinine 1.44 H, Estim Creat Clear Calc 65.01, Est GFR (MDRD) Af Amer 65, Est GFR (MDRD) Non-Af 53 L, BUN/Creatinine Ratio 22.2 H, Glucose 362 H, Calcium 9.9, Total Bilirubin 0.50, AST 48 H, ALT 75 H, Alkaline Phosphatase 274 H, Total Protein 7.5, Albumin 3.3, Globulin 4.2, Albumin/Globulin Ratio 0.8 L 10/10/21 12:00: Total Creatine Kinase 94, Triglycerides 351 H 10/10/21 12:08: Urine Color Yellow, Urine Clarity Clear, Urine pH 6.0, Ur Specific [place] 1.020, Urine Protein 100 H, Urine Glucose (UA) 1000 H, Urine Ketones Negative, Urine Occult Blood Negative, Urine Nitrite Negative, Urine Bilirubin Negative, Urine Urobilinogen Normal, Ur Leukocyte Esterase Negative, Urine RBC 0 SEEN, Urine WBC 0 SEEN, Ur Squamous Epith Cells 0 SEEN, Urine Bacteria 0 SEEN, Urine Mucus 0 SEEN 10/10/21 12:10: Lactic Acid 2.4 H* 10/10/21 16:25: Lactic Acid 2.6 H* 10/10/21 16:25: POC Glucose 295 H 10/10/21 21:42: POC Glucose 214 H 10/11/21 03:55: POC Glucose 191 H 10/11/21 04:00: WBC 9.7, RBC 3.40 L, Hgb 10.4 L, Hct 33.1 L, MCV 97.4 H, MCH 30.6, MCHC 31.4 L, RDW Std Deviation 59.3 H, RDW Coeff of Imelda 16.7 H, Plt Count 231, MPV 11.3, Immature Gran % (Auto) 1.500 H, Neut % (Auto) 93.9 H, Lymph % (Auto) 1.3 L, [place] % (Auto) 3.2, Eos % (Auto) 0.0, Baso % (Auto) 0.1, Absolute Neuts (auto) 9.1 H, Absolute Lymphs (auto) 0.13 L, Nucleated RBC % 0.3, Differential Comment SCANNED 10/11/21 04:00: Sodium 136, Potassium 3.6, Chloride 88 L, Carbon Dioxide 40.0 H, Anion Gap 8, BUN 26 H, Creatinine 0.98, Estim Creat Clear Calc 94.13, Est GFR (MDRD) Af Amer 100, Est GFR (MDRD) Non-Af 83, BUN/Creatinine Ratio 26.4 H, Glucose 202 H, Calcium 8.5, Total Bilirubin 0.40, AST 18, ALT 48, Alkaline Phosphatase 173 H, Total Protein 5.2 L, Albumin 2.5 L, Globulin 2.7, Albumin/Globulin Ratio 0.9 10/11/21 06:25: POC Glucose 234 H Micro: Microbiology 10/10/21 15:00 Sputum, Induced/[place]ukens Respiratory Culture - Preliminary Gram negative [id number] 10/10/21 12:08 Urine Catheter - Brown Urine Culture - Preliminary Culture exhibits no growth. 10/10/21 12:09 Nasal Secretion SARS-CoV-2 Antigen (Rapid) - Final ABG Data ABG results: ABG 10/10/21 10/10/21 13:07 16:53 Specimen Type ART ART Sample Site L Radial R Brach pH 7.32 L 7.53 H Bicarbonate Actual 41.7 H 41.3 H Total CO2 44 43 Base Excess 16 H 19 H O2 Saturation 100 H 92 L O2 % 100 40 ABG pCO2 80.4 H* 49.9 H ABG pO2 429 H* 59 L Respiration Rate 14 15 O2 Delivery Device Adult Vent ET Tube Vent Mode AC AC Tidal Volume 450 450 POC PEEP 5 5 Crit Call To/Read Back Yes Radiography Diagnostic Testing: Radiology Impression Chest X-Ray 10/10/21 11:59 IMPRESSION: The tip of the nasogastric tube is in the distal portion of the esophagus. Electronically Signed: Kristopher Montano MD at 13:27 EDT , Brain CT 10/10/21 12:01 IMPRESSION: Normal unenhanced CT scan of the brain. Electronically Signed: Kristopher Montano MD at 14:00 EDT , Chest X-Ray 10/10/21 12:01 IMPRESSION: The tip of the endotracheal tube is at 3.6 cm proximal to the leora. The tip of the nasogastric tube is in the distal one third of the esophagus. Electronically Signed: Kristopher Montano MD at 13:16 EDT , Chest X-Ray 10/10/21 12:45 IMPRESSION: Stable examination. Electronically Signed: Kristopher Montano MD at 13:26 EDT , Chest X-Ray 10/10/21 12:45 IMPRESSION: The tip of the nasogastric tube is in the distal portion of the esophagus. Electronically Signed: Kristopher Montano MD at 13:27 EDT , Physical Exam Const alert, oriented x3 and no apparent distress General Appearance: cooperative HEENT normocephalic and moist oral mucous membranes Eyes PERRL, EOMs intact bilaterally and conjunctivae normal Neck supple and no JVD Resp normal respiratory effort, no retractions and no use of accessory muscles Auscultation: wheezes and diminished lung sounds; Negative for crackles, rales or rhonchi Cardio regular rhythm, S1 normal heart sound, S2 normal heart sound and no murmurs Rate: tachycardic GI soft to palpation, non-tender and non-distended; Negative for hepatosplenomegaly Extremity no clubbing, cyanosis or edema Skin no rashes or lesions noted Neuro no focal motor deficits and no sensory deficits noted Psych affect normal Appearance: appropriate Assessment & Plan Assessment/Plan (1) Acute hypercapnic respiratory failure: PLAN: Plan 1. Acute on chronic hypercapnic respiratory failure secondary to COPD exacerbation ?Currently extubated and on nasal cannula will place him on steroids and breathing treatments ? White count was elevated this could be a stress response, he is afebrile so we will hold antibiotics for now and keep an eye on him. ? Sputum culture sent ? Once he passes a swallow study can restart his home medications ? Pepcid for GI prophylaxis 2. Chronic diastolic CHF/HLD ? He did have an echo on his previous admission secondary to SVT and a non-STEMI that was likely due to demand ischemia at that time EF was 65% ? We will hold his Lasix, Lipitor until he can take p.o. ? Can transition his p.o. metoprolol to IV metoprolol if necessary 3. DM2 ? We will hold his acting insulin as he is currently n.p.o. ? Place him on sliding scale insulin every 4 hours with Accu-Cheks every 4 hours DVT: Lovenox Charges/Coding Visit Charges Inpatient E&M: 16006 Subs Hosp L2
[2021-10-11] MEDS: Enoxaparin 40 MG/0.4 ML Syringe SC (10:49)
[2021-10-11] MEDS: Famotidine 200 MG/20 ML MDV 20 MG in 0.9% Normal Saline (Pres. free 8 ML 300 MG IV ×2 (10:49→22:03)
[2021-10-11] MEDS: 0.9% Saline Lock 10 ML Syringe IV ×3 (10:50→21:59)
[2021-10-11 11:45] LABS: Bedside Glucose 309 mg/dL (74-106)
[2021-10-11] MEDS: Furosemide 40 MG Tablet PO ×2 (13:09→21:58)
[2021-10-11] MEDS: HYDROmorphone 2 MG TABLET PO ×2 (13:10→21:59)
--- NOTE | 2021-10-11 14:50 | CASEMGMT ---
BETHANY ARROYO TRANSITIONS MANAGER CM to room to meet with patient for initial transition planning/care coordination assessment. BETHANY ARROYO introduced self and role at [facility].? Pt voices understanding and consents to assessment at this time.? Pt sitting up in chair in room in no distress at this time.? Pt is A/O at this time and answers all questions appropriately.?? Care providers, pharmacy, and demographics verified/updated at this time. PCP: Dr Devi Specialists: Pt used to see Dr Rogers, but states he has retired. Pt plans to f/u w/[facility] multiple drum sander Pt is active w/[facility]. Insurance: [place] Prescription Benefit:? none Living Will/HPOA:? Pt does not currently have LW/HCPOA and declines info at this time.? LNOK: Deena Living Arrangements: Lives w/ in one-story home w/1 step to enter w/grab bar on one side to enter. Pt states has not been able to walk much for past 2 months. has been assisting w/ambulation and all IADL's. Pt states he can usually bath/dress self, but does assist at times. manages home tasks. Pt states, It's a full-time job for my to take care of me. Transportation: Pt states he rarely drives. does most of the driving. DME: ?States has the following DME:? shower chair, raised toilet, BIPAP (is Trilogy set up as BIPAP moade, not NIV, per pt preference), glucometer, W/C, nebulizer, pulse ox, and home O2 @ 4 l/m through [employer] w/portability. Pt states no need for further DME at this time.? HHC/SNF: No previous hx of either. Pt wishes to return home and states has no concerns with going home at time of discharge.?Pt states does not want to go to a SNF, even if recommended by therapy. He is interested in HHC. ?Pt was provided with list of?HHC providers including quality and resource use data and consistent with the patient's preferred geographic region, medical needs, and insurance network. ?The pt's preferred provider is?[facility]. BETHANY ARROYO informed him d/t offices closed over the weekend, referral cannot be made until Wednesday. Pt informed, if he is discharged over the w/e, to f/u w/PCP to discuss HHC referral w/them. If pt is still @ [facility] on Wednesday, referral to [facility] can be made at that time. Pt voices understanding. PT/OT at bedside to start eval as RN CM completing assessement. Pt voices no further concerns/needs at this time.? Advised pt to ask for CM if any further questions/concerns/needs arise.? Voices understanding. PLAN: ?Home w/possible HHC, spousal support, and discharge plans in place. William SCHILLING RN CM
[2021-10-11 16:36] LABS: Bedside Glucose 404 mg/dL (74-106)
[2021-10-11] MEDS: Atorvastatin Calcium 40 MG Tablet PO (21:58)
[2021-10-11] MEDS: Methadone 10 MG Tablet PO (21:58)
[2021-10-11] MEDS: Metoprolol Tartrate 50 MG Tablet PO (21:58)
[2021-10-11] MEDS: Methylphenidate HCl 5 MG Tablet PO (22:03)
[2021-10-11 22:16] LABS: Bedside Glucose 356 mg/dL (74-106)
[2021-10-12] VITALS (18 sets, daily range): BP systolic 122–143; BP diastolic 76–88; PULSE 81–109; RESP 12–20; TEMP 36.6–37.1; O2SAT 90–98
[2021-10-12] MEDS: HYDROmorphone 2 MG TABLET PO ×3 (05:06→23:50)
[2021-10-12] MEDS: Levothyroxine 175 MCG Tablet PO (05:06)
[2021-10-12] MEDS: Furosemide 40 MG Tablet PO ×3 (05:07→21:01)
[2021-10-12] MEDS: 0.9% Saline Lock 10 ML Syringe IV (05:07)
--- NOTE | 2021-10-12 05:37 | PN.CC_ITS ---
Assessment & Plan Assessment/Plan (1) Acute on chronic respiratory failure with hypoxia and hypercapnia: PLAN: Plan RECOMMENDATIONS: 1. Wean supplemental oxygen as tolerated. 2. Continue scheduled bronchodilators and IV steroids. Anticipate need for prednisone taper at discharge. 3. Continue nocturnal Pap therapy. 4. Start antimicrobials, given gram-negative abdulkadir identified on sputum culture. 5. Perform walking oximetry study prior to consideration for discharge home. 6. I would recommend close outpatient follow-up with his primary estimating manager after discharge. IMPRESSIONS: 1.??Acute on chronic combined respiratory failure The patient has a reported history of COPD of unclear severity along with chronic hypoxemic respiratory failure.? His compliance with outpatient prescribed medical therapy is questionable.? It is possible that the patient may have aspirated during his state of unresponsiveness, given the gram-negative's noted on sputum culture. Antimicrobials have been initiated accordingly. In the interim, the patient has been weaned from the ventilator and is saturating well on his baseline 4 L/min oxygen requirement. He will be continued on scheduled bronchodilators and IV steroids. Plan to continue PAP therapy with naps and nightly. His mentation has returned back to baseline. I do anticipate a need for a prednisone taper at discharge. Recommend a walking oximetry study as well prior to discharge. Ultimately, the patient should have close follow-up with his primary estimating manager. 2.??Encephalopathy Resolved. Likely secondary to CO2 retention in the setting of opiate medication utilization and medical noncompliance.? 3.??Chronic kidney disease/history of lung cancer/hypothyroidism/chronic pain syndrome Complicates care, management, recovery and prognosis.? Continue home medications as indicated. This note was generated with [employer] dictation software. It may contain incorrect words, spelling, and punctuation that were not noted in checking the note before signing. Subjective Subjective The patient was seen and examined at the bedside this morning. Events from the last 24 hours have been reviewed. The patient is currently afebrile, hemodynamically stable and maintaining appropriate oxygen saturations on 4 L/min via nasal cannula. The patient is currently sitting in his bedside recliner. He reported that he feels much better this morning from a breathing perspective. The patient is followed on an outpatient basis in the office of Dr. Rogers at [facility]. He once again confirmed to me that he has end-stage COPD and is also prescribed a trilogy at home. Objective Data Objective Data The patient's most recent lab work, culture data and imaging studies have all been personally reviewed. Surface echocardiogram from July 2021 demonstrated an ejection fraction of 65% with evidence of diastolic dysfunction. RVSP was unable to be estimated. Sputum gram stain was positive for gram-negative abdulkadir. Vital Signs: Vital Signs Temp Pulse Resp BP Pulse Ox FiO2 97.9 F 104 H 18 139/76 H 97 30 10/12/21 03:00 10/12/21 03:00 10/12/21 03:00 10/12/21 03:00 10/12/21 03:00 10/12/21 02:00 Oxygen Flow Rate (L/min) 4 Oxygen Delivery Method Nasal Cannula Weight: 180 lb 5.41 oz Body Mass Index (BMI) 22.6 Intake & Output: Intake and Output for Last 24 Hours 10/10/21 10/11/21 10/12/21 23:59 23:59 23:59 Intake Total 554.09 / 559.39 1177.53 / 1327.53 150 / 150 Output Total 355 / 415 1015 / 1465 450 / 450 Balance 199.09 / 144.39 162.53 / -137.47 -300 / -300 Lab / Micro Data Attestation: I reviewed the patient's lab results. Result Diagrams: 10/11/21 04:00 10/11/21 04:00 Labs: Laboratory Results - last 24 hr 10/11/21 06:25: POC Glucose 234 H 10/11/21 11:38: POC Glucose 309 H 10/11/21 16:20: POC Glucose 404 H 10/11/21 22:06: POC Glucose 356 H Micro: Microbiology 10/10/21 15:00 Sputum, Induced/Lukens Gram Stain - Final 10/10/21 15:00 Sputum, Induced/Lukens Respiratory Culture - Preliminary Gram negative abdulkadir 10/10/21 12:08 Urine Catheter - Brown Urine Culture - Preliminary Culture exhibits no growth. 10/10/21 12:09 Nasal Secretion SARS-CoV-2 Antigen (Rapid) - Final Physical Exam Const alert, oriented x3 and no apparent distress Constitutional Narrative: Sitting in bedside recliner. HEENT normocephalic, head/scalp atraumatic and moist oral mucous membranes Teeth and Gingiva: poor dentition Eyes PERRL, EOMs intact bilaterally and conjunctivae normal Neck supple General: trachea midline Chest inspection of chest normal Resp normal respiratory effort Auscultation: wheezes expiratory wheezes and diminished lung sounds Cardio regular rate and regular rhythm GI normal to inspection, nondistended, normoactive bowel sounds Extremity no clubbing, cyanosis or edema Skin no rashes or lesions noted Neuro oriented x3, CN's II-XII intact bilaterally and moves all extremities Psych cooperative and affect normal Charges/Coding Visit Charges Inpatient E&M: 86865 Subs Hosp L3
[2021-10-12] MEDS: Ipratropium/Albuterol Sulfate 3 ML AMPUL.NEB INHALATION ×5 (07:08→22:28)
[2021-10-12 07:51] LABS: Bedside Glucose 349 mg/dL (74-106)
[2021-10-12] MEDS: Aspirin 81 MG TAB.CHEW PO (07:52)
[2021-10-12] MEDS: Insulin Lispro 100 UNIT/ML INSULN.PEN SC ×4 (07:52→20:59)
--- NOTE | 2021-10-12 09:56 | PCM.PN.HOSP ---
Subjective Subjective Doing well, he is down to his baseline oxygen however sputum cultures coming back with Pseudomonas so we are awaiting sensitivities. No issues overnight Objective Data Objective Data Vital Signs: Vital Signs Temp Pulse Resp BP Pulse Ox FiO2 98.7 F 101 H 18 124/83 H 98 30 10/12/21 07:55 10/12/21 07:55 10/12/21 07:55 10/12/21 07:55 10/12/21 07:55 10/12/21 02:00 Oxygen Flow Rate (L/min) 4 Oxygen Delivery Method Nasal Cannula Weight: 180 lb 5.41 oz Body Mass Index (BMI) 22.6 Intake & Output: Intake and Output for Last 24 Hours 10/11/21 10/12/21 10/13/21 03:59 03:59 03:59 Intake Total 581.37 / 589.37 1300.25 / 1300.25 250 / 250 Output Total 415 / 500 1405 / 1405 450 / 450 Balance 166.37 / 89.37 -104.75 / -104.75 -200 / -200 Lab / Micro Data Result Diagrams: 10/11/21 04:00 10/11/21 04:00 Labs: Laboratory Results - last 24 hr 10/11/21 11:38: POC Glucose 309 H 10/11/21 16:20: POC Glucose 404 H 10/11/21 22:06: POC Glucose 356 H 10/12/21 07:43: POC Glucose 349 H Micro: Microbiology 10/10/21 15:00 Sputum, Induced/Lukens Gram Stain - Final 10/10/21 15:00 Sputum, Induced/Lukens Respiratory Culture - Preliminary Pseudomonas putida 10/10/21 12:08 Urine Catheter - Brown Urine Culture - Final Culture exhibits no growth. 10/10/21 12:09 Nasal Secretion SARS-CoV-2 Antigen (Rapid) - Final Physical Exam Narrative Const alert, oriented x3 and no apparent distress General Appearance: cooperative HEENT normocephalic and moist oral mucous membranes Eyes PERRL, EOMs intact bilaterally and conjunctivae normal Neck supple and no JVD Resp normal respiratory effort, no retractions and no use of accessory muscles Auscultation: wheezes and diminished lung sounds; Negative for crackles, rales or rhonchi Cardio regular rhythm, S1 normal heart sound, S2 normal heart sound and no murmurs Rate: tachycardic GI soft to palpation, non-tender and non-distended; Negative for hepatosplenomegaly Extremity no clubbing, cyanosis or edema Skin no rashes or lesions noted Neuro no focal motor deficits and no sensory deficits noted Psych affect normal Appearance: appropriate Assessment & Plan Assessment/Plan (1) Acute hypercapnic respiratory failure: PLAN: Plan 1. Acute on chronic hypercapnic respiratory failure secondary to COPD exacerbation ? Back to his baseline oxygen requirement ? Sputum culture with gram-negative abdulkadir coming back as Pseudomonas putida, continue with Zosyn await sensitivities ?Evaluated by speech, can resume his home medications 2. Chronic diastolic CHF/HLD ? He did have an echo on his previous admission secondary to SVT and a non-STEMI that was likely due to demand ischemia at that time EF was 65% ? Restarted on his home Lasix and Lipitor ? Continue with his p.o. metoprolol 3. DM2 ? Continue sliding scale insulin and Accu-Cheks AC at bedtime ? Will resume his home long-acting insulin as well at 10 units at night given the steroids DVT: Lovenox Charges/Coding Visit Charges Inpatient E&M: 90752 Subs Hosp L2
[2021-10-12] MEDS: Methadone 10 MG Tablet PO ×2 (10:18→21:01)
[2021-10-12] MEDS: Metoprolol Tartrate 50 MG Tablet PO ×2 (10:19→21:01)
[2021-10-12] MEDS: Enoxaparin 40 MG/0.4 ML Syringe SC (10:19)
[2021-10-12] MEDS: Methylphenidate HCl 5 MG Tablet PO ×2 (10:25→21:01)
[2021-10-12 11:36] LABS: Bedside Glucose 376 mg/dL (74-106)
[2021-10-12] MEDS: Acetaminophen 500 MG Tablet 1000 MG PO (12:23)
[2021-10-12 16:31] LABS: Bedside Glucose 215 mg/dL (74-106)
[2021-10-12] MEDS: Insulin Glargine-YFGN 100 UNIT/ML Pen 10 UNIT SC (20:58)
[2021-10-12] MEDS: Atorvastatin Calcium 40 MG Tablet PO (21:01)
[2021-10-12 22:01] LABS: Bedside Glucose 414 mg/dL (74-106)
[2021-10-13] VITALS (10 sets, daily range): BP systolic 131–148; BP diastolic 84–99; PULSE 88–106; RESP 12–20; TEMP 36.4–36.6; O2SAT 93–99
[2021-10-13] MEDS: Furosemide 40 MG Tablet PO (05:26)
[2021-10-13] MEDS: Levothyroxine 175 MCG Tablet PO (05:26)
[2021-10-13] MEDS: 0.9% Saline Lock 10 ML Syringe IV (05:26)
[2021-10-13 05:59] LABS: Absolute Lymphocyte Count 0.11 X10^3/uL (0.83-4.51); Basophil# 0.04 X10^3/uL; Basophil% 0.5 % (0-1); Hematocrit 38.6 % (40-54); Hemoglobin 12.1 g/dL (13.0-16.5); Lymphocyte # 0.11 X10^3/ul (0.83-4.51); Lymphocyte % 1.2 % (19-41); Mean Corp Hgb Conc 31.3 g/dL (32-36); Mean Corpuscular Hgb 30.1 pg (27.0-32.0); Mean Platelet Vol. 11.2 fl (6.2-12.0); Monocyte# 0.34 X10^3/uL; Monocyte% 3.9 % (0-10); NRBC Flagged by Analyzer 0.8 % (0-5); Neutrophil # 7.98 X10^3/uL (2.7-7.7); Neutrophil % 90.3 % (47-70); POSITIVE DIFFERENTIAL YES; Platelet Count 269 K/mm3 (150-450); RBC Distribution Width CV 16.2 % (11.6-14.6); RBC Distribution Width SD 57.3 fl (35.1-43.9); Red Blood Count 4.02 M/mm3 (4.6-6.2); White Blood Count 8.8 K/mm3 (4.4-11.0)
[2021-10-13 06:14] LABS: Differential Indicated SCAN CRITERIA MET
[2021-10-13 06:22] LABS: Differential Comment SCANNED
[2021-10-13 06:27] LABS: Anion Gap 9 (5-15); BUN 32 mg/dL (7-18); BUN/Creat Ratio 25.8 RATIO (10-20); Calcium,Total 8.6 mg/dL (8.5-10.1); Chloride 83 mmol/L (98-107); Creatinine, Serum 1.24 mg/dL (0.70-1.30); EST Glomerular Filtration Rate 64 mL/min (>60); Est Glom Filt Rate - Afr Amer 77 mL/min (>60); Estimated Creatinine Clearance 75.22 ml/min; Glucose 412 mg/dL (74-106); Potassium 2.7 mmol/L (3.5-5.1); Sodium Level 132 mmol/L (136-145)
--- NOTE | 2021-10-13 06:28 | NURSING ---
Pts primary rn aware of k of 2.7 this am.
[2021-10-13] MEDS: Potassium Chloride Oral Tablet 20 MEQ 40 MEQ PO (06:44)
[2021-10-13] MEDS: Insulin Lispro 100 UNIT/ML INSULN.PEN SC (06:45)
[2021-10-13 06:51] LABS: Bedside Glucose 415 mg/dL (74-106)
[2021-10-13] MEDS: Potassium Chloride 10mEq/100mL 10 MEQ/100 ML IV.SOLN. 100 MEQ IV BOLUS ×4 (06:51→11:04)
[2021-10-13 06:58] LABS: Magnesium 1.9 mg/dL (1.6-2.6)
[2021-10-13] MEDS: Ipratropium/Albuterol Sulfate 3 ML AMPUL.NEB INHALATION ×2 (07:15→11:01)
--- NOTE | 2021-10-13 07:47 | PN.CC_ITS ---
Assessment & Plan Assessment/Plan (1) Acute on chronic respiratory failure with hypoxia and hypercapnia: PLAN: Plan RECOMMENDATIONS: 1. Wean supplemental oxygen as tolerated. 2. Continue scheduled bronchodilators and IV steroids. Okay to transition to prednisone therapy and wean over the next 12 to 14 days. 3. Continue nocturnal Pap therapy. 4. Await sensitivity and pseudomonal species. Anticipate 10 days of therapy 5. Perform walking oximetry study prior to consideration for discharge home. 6. I would recommend close outpatient follow-up with his primary pulmon ologist after discharge. 7. Likely okay to discharge following aggressive potassium repletion IMPRESSIONS: 1.??Acute on chronic combined respiratory failure The patient has a reported history of COPD of unclear severity along with chronic hypoxemic respiratory failure.? His compliance with outpatient prescribed medical therapy is questionable.? Gram-negative's now known to be a pseudomonal species. Anticipate patient will require 10 days of antibiotics given marginal respiratory status. Patient will also require a 10 to 12-day taper of steroids. In the interim, the patient has been weaned from the ventilator and is saturating well on his baseline 4 L/min oxygen requirement. He will be continued on scheduled bronchodilators and IV steroids. Plan to continue PAP therapy with naps and nightly. His mentation has returned back to baseline. Recommend a walking oximetry study as well prior to discharge. Ultimately, the patient should have close follow-up with his primary refinery operator crude unit. Extremely guarded prognosis given patient's advanced respiratory status, poor insight and need for chronic pain medication. Patient remains full code 2.??Encephalopathy Resolved. Likely secondary to CO2 retention in the setting of opiate medication utilization and medical noncompliance.? 3.??Chronic kidney disease/history of lung cancer/hypothyroidism/chronic pain syndrome/hypokalemia Complicates care, management, recovery and prognosis.? Continue home medications as indicated. Patient can likely be discharged once aggressive potassium repletion is completed. Defer to hospitalist on whether repeat labs need to be obtained This note was generated with [employer] dictation software. It may contain incorrect words, spelling, and punctuation that were not noted in checking the note before signing. Subjective Subjective Patient did well overnight. No acute issues are reported. Patient states that he feels strong enough to go home. Patient has had a productive cough, but feels this is subjectively improving. Patient is not reporting any cramping or palpitations. Objective Data Objective Data Vital Signs: Vital Signs Temp Pulse Resp BP Pulse Ox FiO2 36.6 C 100 20 H 131/84 H 98 35 10/13/21 04:38 10/13/21 07:13 10/13/21 07:13 10/13/21 04:38 10/13/21 07:13 10/13/21 02:36 Oxygen Flow Rate (L/min) 4 Oxygen Delivery Method Nasal Cannula Weight: 81.9 kg Body Mass Index (BMI) 22.6 Intake & Output: Intake and Output for Last 24 Hours 10/11/21 10/12/21 10/13/21 23:59 23:59 23:59 Intake Total 1177.53 / 1327.53 2110 / 2110 530 / 530 Output Total 1015 / 1465 3000 / 3000 550 / 550 Balance 162.53 / -137.47 -890 / -890 - / -20 Lab / Micro Data Attestation: I reviewed the patient's lab results. Lab results narrative: Potassium supplementation is already underway Result Diagrams: 10/13/21 05:05 10/13/21 05:05 Labs: Laboratory Results - last 24 hr 10/12/21 07:43: POC Glucose 349 H 10/12/21 11:24: POC Glucose 376 H 10/12/21 16:24: POC Glucose 215 H 10/12/21 20:36: POC Glucose 414 H 10/13/21 05:05: WBC 8.8, RBC 4.02 L, Hgb 12.1 L, Hct 38.6 L, MCV 96.0 H, MCH 30.1, MCHC 31.3 L, RDW Std Deviation 57.3 H, RDW Coeff of Imelda 16.2 H, Plt Count 269, MPV 11.2, Immature Gran % (Auto) 4.100 H, Neut % (Auto) 90.3 H, Lymph % (Auto) 1.2 L, [place] % (Auto) 3.9, Eos % (Auto) 0.0, Baso % (Auto) 0.5, Absolute Neuts (auto) 8.0 H, Absolute Lymphs (auto) 0.11 L, Nucleated RBC % 0.8, Differential Comment SCANNED 10/13/21 05:05: Sodium 132 L, Potassium 2.7 L*, Chloride 83 L, Carbon Dioxide 40.0 H, Anion Gap 9, BUN 32 H, Creatinine 1.24, Estim Creat Clear Calc 75.22, Est GFR (MDRD) Af Amer 77, Est GFR (MDRD) Non-Af 64, BUN/Creatinine Ratio 25.8 H , Glucose 412 H, Calcium 8.6 10/13/21 05:05: Magnesium 1.9 10/13/21 06:42: POC Glucose 415 H Micro: Microbiology 10/10/21 13:26 Blood Culture (Wb) - Left Forearm Blood Culture - Preliminary No growth in 48 hours. 10/10/21 12:10 Blood Culture (Wb) - Left Forearm Blood Culture - Preliminary No growth in 48 hours. 10/10/21 15:00 Sputum, Induced/Lukens Gram Stain - Final 10/10/21 15:00 Sputum, Induced/Lukens Respiratory Culture - Preliminary Pseudomonas putida 10/10/21 12:08 Urine Catheter - Brown Urine Culture - Final Culture exhibits no growth. 10/10/21 12:09 Nasal Secretion SARS-CoV-2 Antigen (Rapid) - Final Physical Exam Const alert, oriented x3 and no apparent distress Constitutional Narrative: Sitting in bedside recliner. No conversational dyspnea. Supplemental oxygen in place. Appears older than stated age HEENT normocephalic, head/scalp atraumatic and moist oral mucous membranes Eyes PERRL, EOMs intact bilaterally and conjunctivae normal Neck full ROM and supple General: trachea midline Chest inspection of chest normal Resp normal respiratory effort Auscultation: wheezes expiratory wheezes (At end exhalation only) and diminished lung sounds; Negative for rales or rhonchi Cardio regular rate, regular rhythm, S1 normal heart sound, S2 normal heart sound, no murmurs, no rub and no gallops GI normal to inspection, nondistended, normoactive bowel sounds Extremity General Extremity: clubbing; Negative for edema Skin no rashes or lesions noted Neuro oriented x3, CN's II-XII intact bilaterally, moves all extremities and no focal motor deficits Psych cooperative and affect normal Charges/Coding Visit Charges Inpatient E&M: 55700 Subs Hosp L2
[2021-10-13] MEDS: Aspirin 81 MG TAB.CHEW PO (08:01)
[2021-10-13] MEDS: predniSONE 20 MG Tablet 40 MG PO (08:04)
[2021-10-13] MEDS: HYDROmorphone 2 MG TABLET PO (08:19)
--- NOTE | 2021-10-13 09:30 | PCM.DC ---
Discharge Instructions Diet Discharge Diet: Low fat / Low cholesterol and Carb Control Diet Dressing / Incision Call your doctor if you observe: Fever of 101 or Higher, Shortness of breath, Dizziness, Fainting spells, Swelling in the ankles, Chest pain and Increased palpitations (irregular heartbeat) Follow Up Care Test Results: Test results from this visit will be discussed in further detail at your follow-up appointment, if applicable. Discharge Plan Admission Admit Date/Time: 10/10/21 14:31 Attending Provider: Dharmesh Chawla Primary Care Provider: Sergio Devi Consulting Providers: Brandan Dial ; Saad Elena ; America Lopez HEDGE TRIMMER Instructions Additional Instructions / Restrictions: Follow-up with your PCP in 3 to 5 days to obtain an outpatient BMP to monitor your renal function and potassium. Discharge Orders/Prescriptions Prescriptions: New potassium chloride 20 mEq tablet,ER particles/crystals 20 meq PO BID Qty: 30 0RF ciprofloxacin HCl [Cipro] 500 mg tablet 500 mg PO Q12H Qty: 14 0RF Continued levothyroxine 175 mcg tablet 175 mcg PO DAILY Label Comments: take 1 tablet by mouth once daily ipratropium-albuterol 0.5 mg-3 mg(2.5 mg base)/3 mL solution for nebulization 3 ml inhalation Q4H PRN PRN (Reason: SOB) Label Comments: inhale contents of 1 vial ( 3 milliliters ) in nebulizer by mouth... (REFER TO PRESCRIPTION NOTES). methadone 10 mg tablet 10 mg PO BID Label Comments: TAKE 1 TABLET BY MOUTH TWICE A DAY methylphenidate HCl 5 mg tablet 5 mg PO BID Label Comments: TAKE 1 TABLET BY MOUTH TWICE DAILY FOR 30 DAYS. WITH BREAKFAST AND LUNCH. hydromorphone 2 mg tablet 2 mg PO Q8 PRN (Reason: Pain) furosemide 20 mg tablet 40 mg PO TID insulin glargine [Lantus Solostar U-100 Insulin] 100 unit/mL (3 mL) Insulin Pen 10 unit SUBCUT QPM atorvastatin 40 mg tablet 40 mg PO QHS prednisone 20 mg tablet 40 mg PO BREAKFAST metoprolol tartrate 50 mg tablet 50 mg PO BID aspirin 81 mg tablet,chewable 81 mg PO 0800 Referrals / Follow Up: Sergio Devi MD [Primary Care Provider] - Within 1 Week Disposition Disposition (needs filled in before D/C Order can be placed): Home, Self Care
--- NOTE | 2021-10-13 09:39 | DS.PCM_ITS ---
Providers Date of Admission: 10/10/21 Primary Care Physician: Dr. Sergio Devi MD Consultations 10/11/21 06:08 Consult: Electrician Journeyman Wireman / Pulmonary Medicine Routine Consulting Provider: Pulmonary Medicine charles [place] Reason for Consult: Intubated EMERGENT Consult: No MD Notified: Yes Date Notified: 10/11/21 Time Notified: 06:08 Method of Notification: Text Reason For Visit: RESP FAILURE Diagnosis Discharge Diagnosis (1) Acute on chronic respiratory failure with hypoxia and hypercapnia: Status: Chronic Code(s): J96.21 - Acute and chronic respiratory failure with hypoxia; J96.22 - Acute and chronic respiratory failure with hypercapnia Medications at Discharge Home Medications furosemide 20 mg tablet 40 mg PO TID water retention 06/27/21 hydromorphone 2 mg tablet 2 mg PO Q8 PRN Pain 06/27/21 ipratropium 0.5 mg-albuterol 3 mg (2.5 mg base)/3 mL nebulization soln 3 ml inhalation Q4H PRN PRN SOB 06/27/21 levothyroxine 175 mcg tablet 175 mcg PO DAILY thyroid 06/27/21 methadone 10 mg tablet 10 mg PO BID pain 06/27/21 methylphenidate HCl 5 mg tablet 5 mg PO BID stimulant 06/27/21 aspirin 81 mg chewable tablet 81 mg PO 0800 Check with primary doctor 10/10/21 atorvastatin 40 mg tablet 40 mg PO QHS Check with primary doctor 10/10/21 insulin glargine 100 unit/mL (3 mL) subcutaneous pen (Lantus Solostar U-100 Insulin) 10 unit subcut QPM Check with primary doctor 10/10/21 metoprolol tartrate 50 mg tablet 50 mg PO BID Check with primary doctor 10/10/21 prednisone 20 mg tablet 40 mg PO BREAKFAST Check with primary doctor 10/10/21 ciprofloxacin HCl 500 mg tablet (Cipro) 500 mg PO Q12H #14 tabs 10/13/21 potassium chloride 20 mEq tablet,extended release(part/cryst) 20 meq PO BID #30 tabs 10/13/21 Hospital Course Operations None Procedures None Summary of Care Provided Minutes Spent on Discharge: 42 Hospital Course: Per HPI: SUMEET ELLIOTT, is a 56 M who presents who presents to the hospital with unresponsiveness secondary to shortness of breath and acute on chronic hypercapnic respiratory failure.? There is no family at bedside and he was intubated in the ER prior to my evaluation so history was obtained by chart review.? He was a little bit confused yesterday which is generally the sign that he is going into some respiratory failure, today EMS was called secondary to being unresponsive while on his CPAP.? He was brought to the ER immediately intubated.? PCO2 on ABG was 80.4, his O2 sat by EMS documentation was 91% on arrival. Hospital Course: 1.? Acute on chronic hypercapnic respiratory failure secondary to COPD exacerbation ? Back to his baseline oxygen requirement ? Sputum culture with gram-negative abdulkadir coming back as Pseudomonas putida, continue with Zosyn await sensitivities ?Evaluated by speech, can resume his home medications ? Back down to his home oxygen requirements. Sputum culture did come back with Pseudomonas therefore, in discussion with pulmonology, can discharge him on Cipro for another 7 days. He also has steroids at home and is supposed be taking 40 mg p.o. daily which we will discontinue on discharge. His potassium was low but his magnesium was normal so his potassium was replaced here in the hospital I recommend that he take potassium at home and he was given a prescription for this. I do recommend that he follow-up with his PCP in 3 to 5 days for outpatient monitoring and follow-up. No other changes were made to his medications. I discussed with him the plan for discharge today and he expressed understanding of the risk benefits going home and he would like to go home today. Of note he did refuse an ambulatory pulse ox prior to discharge. 2.? Chronic diastolic CHF/HLD ? He did have an echo on his previous admission secondary to SVT and a non-STEMI that was likely due to demand ischemia at that time EF was 65% ? Restarted on his home Lasix and Lipitor ? Continue with his p.o. metoprolol 3.? DM2 ? Resume all of his home blood sugar medications. I discussed with him needing to have a carb controlled diet secondary to being on steroids he expressed under standing. Physical Exam Narrative Const alert, oriented x3 and no apparent distress General Appearance: cooperative HEENT normocephalic and moist oral mucous membranes Eyes PERRL, EOMs intact bilaterally and conjunctivae normal Neck supple and no JVD Resp normal respiratory effort, no retractions and no use of accessory muscles Auscultation: Slight wheezes and diminished lung sounds; Negative for crackles, rales or rhonchi Cardio regular rhythm, S1 normal heart sound, S2 normal heart sound and no murmurs Rate: tachycardic GI soft to palpation, non-tender and non-distended; Negative for hepatosplenomegaly Extremity no clubbing, cyanosis or edema Skin no rashes or lesions noted Neuro no focal motor deficits and no sensory deficits noted Psych affect normal Appearance: appropriate Weight / BMI Weight Weight: 180 lb 8.937 oz Body Mass Index (BMI) 22.6 ABG / Lab / Microbiology Data Result Diagrams: 10/13/21 05:05 10/13/21 05:05 Laboratory: Laboratory Results - last 24 hr 10/12/21 11:24: POC Glucose 376 H 10/12/21 16:24: POC Glucose 215 H 10/12/21 20:36: POC Glucose 414 H 10/13/21 05:05: WBC 8.8, RBC 4.02 L, Hgb 12.1 L, Hct 38.6 L, MCV 96.0 H, MCH 30.1, MCHC 31.3 L, RDW Std Deviation 57.3 H, RDW Coeff of Imelda 16.2 H, Plt Count 269, MPV 11.2, Immature Gran % (Auto) 4.100 H, Neut % (Auto) 90.3 H, Lymph % (Auto) 1.2 L, [place] % (Auto) 3.9, Eos % (Auto) 0.0, Baso % (Auto) 0.5, Absolute Neuts (auto) 8.0 H, Absolute Lymphs (auto) 0.11 L, Nucleated RBC % 0.8, Differential Comment SCANNED 10/13/21 05:05: Sodium 132 L, Potassium 2.7 L*, Chloride 83 L, Carbon Dioxide 40.0 H, Anion Gap 9, BUN 32 H, Creatinine 1.24, Estim Creat Clear Calc 75.22, Est GFR (MDRD) Af Amer 77, Est GFR (MDRD) Non-Af 64, BUN/Creatinine Ratio 25.8 H , Glucose 412 H, Calcium 8.6 10/13/21 05:05: Magnesium 1.9 10/13/21 06:42: POC Glucose 415 H Microbiology: Microbiology 10/10/21 15:00 Sputum, Induced/Lukens Gram Stain - Final 10/10/21 15:00 Sputum, Induced/[place]ukens Respiratory Culture - Final Pseudomonas putida 10/10/21 13:26 Blood Culture (Wb) - Left Forearm Blood Culture - Preliminary No growth in 48 hours. 10/10/21 12:10 Blood Culture (Wb) - Left Forearm Blood Culture - Preliminary No growth in 48 hours. 10/10/21 12:08 Urine Catheter - Brown Urine Culture - Final Culture exhibits no growth. 10/10/21 12:09 Nasal Secretion SARS-CoV-2 Antigen (Rapid) - Final D/C Instructions Discharge Diet: Low fat / Low cholesterol and Carb Control Diet Call your doctor if you observe: Fever of 101 or Higher, Shortness of breath, Dizziness, Fainting spells, Swelling in the ankles, Chest pain and Increased palpitations (irregular heartbeat) Meaningful Use Info Meaningful Use Diagnoses (Choose all that apply): None applicable Discharge Plan Admission Admit Date/Time: 10/10/21 14:31 Attending Provider: Dharmesh Chawla Primary Care Provider: Sergio Devi Consulting Providers: Brandan Dial ; Saad Elena ; America Lopez ARTIST'S MANAGER Instructions Additional Instructions / Restrictions: Follow-up with your PCP in 3 to 5 days to obtain an outpatient BMP to monitor your renal function and potassium. Discharge Orders/Prescriptions Prescriptions: New potassium chloride 20 mEq tablet,ER particles/crystals 20 meq PO BID Qty: 30 0RF ciprofloxacin HCl [Cipro] 500 mg tablet 500 mg PO Q12H Qty: 14 0RF Continued levothyroxine 175 mcg tablet 175 mcg PO DAILY Label Comments: take 1 tablet by mouth once daily ipratropium-albuterol 0.5 mg-3 mg(2.5 mg base)/3 mL solution for nebulization 3 ml inhalation Q4H PRN PRN (Reason: SOB) Label Comments: inhale contents of 1 vial ( 3 milliliters ) in nebulizer by mouth... (REFER TO PRESCRIPTION NOTES). methadone 10 mg tablet 10 mg PO BID Label Comments: TAKE 1 TABLET BY MOUTH TWICE A DAY methylphenidate HCl 5 mg tablet 5 mg PO BID Label Comments: TAKE 1 TABLET BY MOUTH TWICE DAILY FOR 30 DAYS. WITH BREAKFAST AND LUNCH. hydromorphone 2 mg tablet 2 mg PO Q8 PRN (Reason: Pain) furosemide 20 mg tablet 40 mg PO TID insulin glargine [Lantus Solostar U-100 Insulin] 100 unit/mL (3 mL) Insulin Pen 10 unit SUBCUT QPM atorvastatin 40 mg tablet 40 mg PO QHS prednisone 20 mg tablet 40 mg PO BREAKFAST metoprolol tartrate 50 mg tablet 50 mg PO BID aspirin 81 mg tablet,chewable 81 mg PO 0800 Referrals / Follow Up: Sergio Devi MD [Primary Care Provider] - 10/17/21 11:00 am Disposition Disposition (needs filled in before D/C Order can be placed): Home, Self Care Charges/Coding Visit Charges Inpatient E&M: 76534 Disch Hosp
[2021-10-13] MEDS: Methadone 10 MG Tablet PO (09:49)
[2021-10-13] MEDS: Enoxaparin 40 MG/0.4 ML Syringe SC (09:49)
[2021-10-13] MEDS: Methylphenidate HCl 5 MG Tablet PO (09:49)
[2021-10-13] MEDS: Metoprolol Tartrate 50 MG Tablet PO (09:50)
--- NOTE | 2021-10-13 10:35 | CASEMGMT ---
Therapy states no need for further therapy and this RN CM to room and pt declines need for HHC or any further resources at this time. SStaten RN CM
--- NOTE | 2021-10-13 11:33 | NURSING ---
pt refused walking pox, states he has pox at home and has been managing his o2 needs for a long time and I know what to do
== END 2021-10-13 12:57 | disposition home or self-care (01) | DRG 208 ==
LOC: ED 14:19 → ICU 14:48 → PCU 10-11 23:59
PROVIDERS: Admitting Provider Family Medicine; Emergency Provider Emergency Medicine; PCP Family Medicine; Visit Provider Family Medicine
DX: J96.21 Acute and chronic respiratory failure with hypoxia (principal); G93.41 Metabolic encephalopathy; I50.32 Chronic diastolic (congestive) heart failure; E11.22 Type 2 diabetes mellitus with diabetic chronic kidney disease; J43.9 Emphysema, unspecified; J96.22 Acute and chronic respiratory failure with hypercapnia; Z79.4 Long term (current) use of insulin; N18.31 Chronic kidney disease, stage 3a; E78.5 Hyperlipidemia, unspecified; I25.2 Old myocardial infarction; F17.210 Nicotine dependence, cigarettes, uncomplicated; E03.9 Hypothyroidism, unspecified; E87.6 Hypokalemia; G89.4 Chronic pain syndrome; Z91.19 Patient's noncompliance with other medical treatment and regimen; Z20.822 Contact with and (suspected) exposure to COVID-19; Z79.890 Hormone replacement therapy; Z79.899 Other long term (current) drug therapy; Z85.118 Personal history of other malignant neoplasm of bronchus and lung; Z79.82 Long term (current) use of aspirin
CPT/HCPCS: 31500; 31720; 36415; 36600; 51702; 70450; 71045; 80048; 80053; 81001; 82550; 82803; 82962; 83605; 83735; 84478; 85025; 85610; 85730; 87040; 87070; 87077; 87086; 87186; 87205; 87811; 92507; 92526; 92610; 93005; 94002; 94003; 94640; 94762; 97162; 97163; 97166; 97530; 97535; 97802; 97803; 99251; 99285; 99406; J7030; J7040; A4216; G0463; J3490